=== PATIENT | female | born 1955 | race Caucasian/White ===

== ENCOUNTER 2023-03-01 08:26 | Observation (INO) ==
--- NOTE | 2023-01-28 10:11 | PAT Medication Instructions ---
Medication Instructions Date of Service January 28, 2023 Home Medications Advair Diskus 1 puff inhalation UD PRN sob albuterol sulfate 90 mcg/actuation aerosol inhaler 1 inh inhalation QID PRN sob atenolol 50 mg tablet 50 mg PO QAM bupropion HCl 150 mg 24 hr tablet, extended release 150 mg PO QAM cetirizine 10 mg tablet (Zyrtec) 10 mg PO QAM hydroxychloroquine 200 mg tablet (Plaquenil) 200 mg PO BID leflunomide 10 mg tablet 10 mg PO QAM losartan 50 mg tablet 50 mg PO BID omega-3 fatty acids 3,000 mg PO QAM omeprazole 20 mg tablet,delayed release 20 mg PO QAM ASK your prescriber and surgeon hydroxychloroquine 200 mg tablet (Plaquenil) 200 mg PO BID leflunomide 10 mg tablet 10 mg PO QAM STOP taking 2 weeks before surgery (or as soon as possible if surgery is within 2 weeks) omega-3 fatty acids 3,000 mg PO QAM DO NOT take the morning of surgery cetirizine 10 mg tablet (Zyrtec) 10 mg PO QAM losartan 50 mg tablet 50 mg PO BID Take morning of surgery With a small sip of water, OTHERWISE NOTHING TO EAT OR DRINK AFTER MIDNIGHT: Advair Diskus 1 puff inhalation UD PRN sob (if needed) albuterol sulfate 90 mcg/actuation aerosol inhaler 1 inh inhalation QID PRN sob (use if needed; please bring rescue inhaler with you to hospital day of surgery if possible) atenolol 50 mg tablet 50 mg PO QAM bupropion HCl 150 mg 24 hr tablet, extended release 150 mg PO QAM omeprazole 20 mg tablet,delayed release 20 mg PO QAM Take evening before surgery Advair Diskus 1 puff inhalation UD PRN sob (if needed) albuterol sulfate 90 mcg/actuation aerosol inhaler 1 inh inhalation QID PRN sob (if needed) losartan 50 mg tablet 50 mg PO BID Other Notes If you have any questions please call us at [phone] or [phone] or [phone] or [phone]
--- NOTE | 2023-02-02 11:20 | Anesthesiology Consultation ---
Date of Service February 02, 2023 Assessment & Plan (1) Encounter for pre-operative examination: Plan - PCP (Dr. Naveed Hanks) pre-operative evaluation 02/12/23. - Outpatient joint assessment: Patient is currently scheduled for outpatient pathway. Patient is not recommended candidate for outpatient joint program from anesthesia standpoint given patient's comfort and request on remaining overnight. She plans to contact surgeon's office to change booking to overnight. Chart Review Chart Review: Pending: Refer to Additional Notes / Consult section and Patient seen in Pre Admission Testing Teaching & Discussion Pre-Anesthesia Teaching/Discussion Notes: Instructed NPO after midnight before surgery, except medications with 15 cc of water. Medication instructions provided according to the PAT guidelines. History Surgery Operation Date: 03/01/23 09:10 Proposed Procedures p OP: Left Total Hip Replacement - Vinicio Teixeira MD Height/Weight Height: 5 ft 7 in Weight: 110 kg Allergies Allergy/AdvReac Type Severity Reaction Status Date / Time codeine AdvReac Unknown NAUSEA AND Verified 01/28/23 09:03 VOMITING metformin AdvReac Unknown "BURNING Verified 01/28/23 09:03 IN MY ESOPHAGUS" propoxyphene AdvReac Unknown NAUSEA AND Verified 01/28/23 09:03 VOMITING Sulfa (Sulfonamide AdvReac Unknown NAUSEA AND Verified 01/28/23 09:03 Antibiotics) VOMITING acetaminophen AdvReac NAUSEA AND Verified 01/28/23 09:03 VOMITING hydromorphone [From Dilaudid] AdvReac Vomiting Verified 01/28/23 09:03 Medications Home Medications Medication Instructions Recorded Confirmed Last Taken Advair Diskus 1 puff inhalation UD PRN sob 01/28/23 01/28/23 Unknown albuterol sulfate 90 mcg/actuation 1 inh inhalation QID PRN sob 01/28/23 01/28/23 Unknown aerosol inhaler atenolol 50 mg tablet 50 mg PO QAM 01/28/23 01/28/23 Unknown bupropion HCl 150 mg 24 hr tablet, 150 mg PO QAM 01/28/23 01/28/23 Unknown extended release cetirizine 10 mg tablet (Zyrtec) 10 mg PO QAM 01/28/23 01/28/23 Unknown hydroxychloroquine 200 mg tablet 200 mg PO BID 01/28/23 01/28/23 Unknown (Plaquenil) leflunomide 10 mg tablet 10 mg PO QAM 01/28/23 01/28/23 Unknown losartan 50 mg tablet 50 mg PO BID 01/28/23 01/28/23 Unknown omega-3 fatty acids 3,000 mg PO QAM 01/28/23 01/28/23 Unknown omeprazole 20 mg tablet,delayed 20 mg PO QAM 01/28/23 01/28/23 Unknown release celecoxib 50 mg capsule (Celebrex) 50 mg PO BID 02/02/23 02/02/23 Unknown meloxicam 15 mg tablet 15 mg PO DAILY 02/02/23 02/02/23 Unknown Additional Notes: Patient was instructed and it was written on provided medication instructions to check with surgeon's office regarding meloxicam and celebrex. She verbalized understanding and agreement, denied questions, concerns or additional medications. Past Medical History Medical History PONV (postoperative nausea and vomiting) denies needing scop patch Adrenal benign tumor hx, s/p right adrenalectomy History of colon polyps GERD (gastroesophageal reflux disease) controlled, stable per pt Anxiety and depression Lupus controlled, stable per pt Borderline hyperlipidemia HTN (hypertension) controlled, stable per pt Sleep apnea CPAP-compliant Asthma rare use of inh-last rescue inhaler use several months ago Patient denies h/o stroke, seizures, heart attack, heart failure, DM, blood clots/DVTs or blood transfusions. Exercise / Class Metabolic Activity III < 4 Walking/Shop/Light housework (denies chest discomfort or shortness of breath with usual activities, not doing steps due to hip dysfunction) Past Surgical History Surgical History History of total adrenalectomy right; notes post-op HTN felt to be related to adrenal adjustment History of colonoscopy Past Anesthesia History No Hx of Anesthesia Complications and No Family Hx of Anesthesia Complications History of PONV History of PONV (denies needing scop patch) and Hx of Motion Sickness Social History Smoking Status: Never smoker Do You Dip or Chew Tobacco: No Hx Alcohol Use: No Hx Substance Use: No substance use type: does not use Review of Systems Patient denies chest pain, shortness of breath, dyspnea on exertion, fever, chills, cough, wheezing, or palpitations. Physical Exam Vital Signs Vitals BP 127/83 P 64 TEMP 97.9 SP02 98% on RA RESP 18 Physical Patient resting comfortably in chair in no acute distress, alert and oriented, responding appropriately throughout visit Full cervical extension range of motion without pain TMD < 3 finger breadths Mallampati Score 2 Dentition: one crown; denies chipped or loose teeth, caps, implants or bridges Lungs: normal respiratory effort. Good air movement, clear throughout to auscultation, no adventitious breath sounds Cardiac: regular rate and rhythm, no murmurs noted Carotid arteries: negative bruit bilat Lab Results Anesthesia Preop Results Results Anesthesia Widget: WBC 5.52 K/ul (4.8-10.8) 02/02/23 Hgb 13.0 g/dl (12.0-16.0) 02/02/23 Hct 37.9 % (37.0-47.0) 02/02/23 Plt 282 K/uL (130-400) 02/02/23 Na 135 mmol/L (136-145) L 02/02/23 K 4.7 mmol/L (3.5-5.1) 02/02/23 Cl 102 mmol/L (98-107) 02/02/23 CO2 24 mmol/L (21-32) 02/02/23 BUN 20 mg/dl (6-23) 02/02/23 Creat 1.27 mg/dl (0.6-1.2) H 02/02/23 Glucose Level 80 mg/dl (70-99(Fasting)) 02/02/23 PT 10.8 Seconds (9.0-12.0) 02/02/23 PTT 31 Seconds (21-31) 02/02/23 INR 1.0 (0.9-1.1) 02/02/23 Urine Color Yellow 02/02/23 Urine Appearance Clear (Clear) 02/02/23 Urine pH 5.5 (4.5-7.5) 02/02/23 Urine Specific [place] 1.015 (1.000-1.030) 02/02/23 Urine Protein Negative (Negative) 02/02/23 Urine Glucose (UA) Negative (Negative) 02/02/23 Urine Ketones Negative (Negative) 02/02/23 Urine Blood Negative (Negative) 02/02/23 Urine Nitrite Negative (Negative) 02/02/23 Urine Bilirubin Negative (Negative) 02/02/23 Urine Urobilinogen Negative (Negative) 02/02/23 Urine Leukocyte Esterase 1+ (Negative) H 02/02/23 Urine WBC (Auto) 1-5 /hpf (0-5) 02/02/23 Urine RBC (Auto) 0-4 /hpf (0-4) 02/02/23 Urine Hyaline Casts (Auto) 0 /lpf (0-5) 02/02/23 Urine Epithelial Cells (Auto) >30 /lpf (0-5) H 02/02/23 Urine Bacteria (Auto) Negative (Negative) 02/02/23 Blood Type O Positive 02/02/23 Antibody Screen NEGATIVE 02/02/23 Testing Electrocardiogram Date: 02/02/23 Sinus rhythm with 1st degree AV block, rate 62 bpm 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
--- NOTE | 2023-02-25 16:13 | History & Physical Report ---
Date of Service February 25, 2023 Assessment & Plan (1) Degenerative joint disease of left hip: Plan: Left total hip replacement direct anterior approach most likely overnight stay and then discharge with home health arranged (2) BMI 38.0-38.9,adult: History of Present Illness Chief Complaint: Left hip pain Primary Care Provider: Naveed Kaba Myles Patient is an obese 67-year-old female with greater than 2-year history of left hip and groin pain. The pain is associated with decreased range of motion w eakness and get giving away. She cannot tie her shoe and sock. She requires a cane for all ambulatory activity. She has failed intra-articular injections as well as gel patches both topical NSAID and lidocaine. She has radiographic evidence of advanced arthritis of the hip and is admitted for elective hip replacement. Allergies Allergy/AdvReac Type Severity Reaction Status Date / Time codeine AdvReac Unknown NAUSEA AND Verified 01/28/23 09:03 VOMITING metformin AdvReac Unknown "BURNING Verified 01/28/23 09:03 IN MY ESOPHAGUS" propoxyphene AdvReac Unknown NAUSEA AND Verified 01/28/23 09:03 VOMITING Sulfa (Sulfonamide AdvReac Unknown NAUSEA AND Verified 01/28/23 09:03 Antibiotics) VOMITING acetaminophen AdvReac NAUSEA AND Verified 01/28/23 09:03 VOMITING hydromorphone [From Dilaudid] AdvReac Vomiting Verified 01/28/23 09:03 Home Medications Medication Instructions Recorded Confirmed Type Advair Diskus 1 puff inhalation UD PRN sob 01/28/23 01/28/23 History albuterol sulfate 90 mcg/actuation 1 inh inhalation QID PRN sob 01/28/23 01/28/23 History aerosol inhaler atenolol 50 mg tablet 50 mg PO QAM 01/28/23 01/28/23 History bupropion HCl 150 mg 24 hr tablet, 150 mg PO QAM 01/28/23 01/28/23 History extended release cetirizine 10 mg tablet (Zyrtec) 10 mg PO QAM 01/28/23 01/28/23 History hydroxychloroquine 200 mg tablet 200 mg PO BID 01/28/23 01/28/23 History (Plaquenil) leflunomide 10 mg tablet 10 mg PO QAM 01/28/23 01/28/23 History losartan 50 mg tablet 50 mg PO BID 01/28/23 01/28/23 History omega-3 fatty acids 3,000 mg PO QAM 01/28/23 01/28/23 History omeprazole 20 mg tablet,delayed 20 mg PO QAM 01/28/23 01/28/23 History release celecoxib 50 mg capsule (Celebrex) 50 mg PO BID 02/02/23 02/02/23 History meloxicam 15 mg tablet 15 mg PO DAILY 02/02/23 02/02/23 History Past Med/Surg History Medical History PONV (postoperative nausea and vomiting) denies needing scop patch Adrenal benign tumor hx, s/p right adrenalectomy History of colon polyps GERD (gastroesophageal reflux disease) controlled, stable per pt Anxiety and depression Lupus controlled, stable per pt Borderline hyperlipidemia HTN (hypertension) controlled, stable per pt Sleep apnea CPAP-compliant Asthma rare use of inh-last rescue inhaler use several months ago Surgical History History of total adrenalectomy right; notes post-op HTN felt to be related to adrenal adjustment History of colonoscopy Social History Smoking Status: Never smoker Second Hand Exposure: No; Do You Dip or Chew Tobacco: No; Hx Alcohol Use: No Hx Substance Use: No Preferred Language: Mongolian Communication Ability: Effective Room Service Waiter/Waitress Required: No Beliefs That Will Affect Care: None Current Living Situation: Spouse Feels Safe at Home: Yes Assistive Devices: Cane and Glasses Review of Systems Review of Systems: Left hip and groin pain Physical Exam Physical Exam: Weight 109 kg BMI 39 General obese female who appears older than her stated age. HEENT NCAT EOMI PERRLA Neck: Negative bruits Heart: Regular rate and rhythm grade 1/6 soft systolic ejection murmur. Lungs: Breath sounds clear and equal in all velásquez Abdomen: Obese soft nontender bowel sounds are positive Extremities: Left hip is 4 mm shorter than the right. Passive range of motion is 5 to 90 degrees flexion -10 degrees internal rotation all which reproduces groin pain. Neurological and vascular: Intact Results & Data Results & Data Vital Signs (Past 12 Hours) Blood pressure 136/84 Pulse 76
[~2023-03-01 08:26] MED LIST: ACETAMINOPHEN 500 MG TAB PO SCH; ATENOLOL 50 MG TABLET PO SCH; CeleBREX 200 MG CAP PO SCH; FAMOTIDINE 20 MG TAB PO SCH; GABAPENTIN 300 MG CAP PO SCH; LR 500ML BOLUS, THEN 15ML/HR IV SCH; LR 60ML/HR IV SCH; METOCLOPRAMIDE HCL 10 MG TABLET PO SCH; ROPIVACAINE 0.5% 5 MG/ML 30 ML VIAL ONE; ROPIVACAINE 0.5% HCL/PF 150 MG, BUPIVACAINE 0.75% MPF 20 ML, EPINEPHrine 30MG/30ML (OR ... INFIL SCH; TRANEXAMIC ACID 1,000 MG **IV Intra-op IV SCH; TRANEXAMIC ACID 1,000 MG **IV Pre-op IV SCH; ceFAZolin 2000MG 2,000 MG/15 ML SYR IV SCH; dexAMETHasone 4 MG TAB PO SCH
--- OUTSIDE RECORDS SUMMARY | 2023-03-01 09:22 | External Medical Summary | Continuity of Care Document ---
Author Name Unknown Organization Family Practice [facility] Address [address] [place] [address] Phone [phone] Care Team Providers Care Project Manager Entertainment [employer] Media Name Role Phone Tomer Maldonado M.D. Care Team Information Receive r [phone] Melissa Hull MD Care Team Information Acupuncturist [phone] [facility] Care Team Information Acupuncturist [phone] Problems Active Problems Provider Date Asthma No Church PA-C Onset: 01/03 Benign hypertension No Church PA-C Onset: 1 03/05/1983 Gastroesophageal reflux disease Girish Pepper Onset: 01/04/1972 Calcaneal spur of left foot No Church PA-C Onset: 07/04/2012 Sensorineural hearing loss, bilateral No alvarado PA-C Onset: 01/05/2021 Chronic constipation oN Church PA-C Onset: 01/05/2021 Allergic rhinitis No Church PA-C Onset: Polycystic ovary syndrome No Church PA-C On set: 01/05/2005 Hiatal hernia No Church PA-C Onset: 03/06 Hyperlipidemia No Church PA-C Onset: 09/11 Adrenal mass No Church PA-C Onset: 01/05 Note: surgically removed Colonoscopy No Church PA-C Onset: 10/05 Note: Dr Mae Recurrent depression No Church PA-C Onset: 01/06/2021 Osteoarthritis of bilateral hip joints Onset: Note: Document: 12/03/21 - R heumatology Consult Systemic lupus erythematosus Ons et: Chronic kidney disease stage 3B Girish Pepper Onset: 02/09/2022 Morbid obesity No Church PA-C Onset: 02/09 Hypertensive renal disease No Church PA-C O nset: 02/09/2022 COVID-19 No Church PA-C Onset: 02/24 Social History Type Date Description Comments Sex Unknown Tobacco Use Start: Unknown Never Smoked Cigarettes Tobacco Use Start: Unknown Never Smoked Cigars Tobacco Use Start: Unknown Never Smoked A Pipe Smoking Status Reviewed: 10/09/22 Never Smoked A Pipe Smokeless Tobacco Never Used Smokeless To bacco ETOH Use Never used alcohol Recreational Drug Use Never Used Drugs Seat Belt/Car Seat always uses seat belt Guns in Home No Allergies and adverse reactions Active Allergies Criticality Reaction | Severity Comments Date Codeine Unable to assess criticality vomitin g 01/03/2021 Dilaudid Unable to assess criticality vomitin g 01/03/2021 Darvon Unable to assess criticality 01/03/2021 Bactrim Unable to assess criticality GI upse t 01/03/2021 Metformin Unable to assess criticality GI upse t 01/05/2021 Omnicef Unable to assess criticality diarrhe a 01/05/2021 Medications Active Medications SIG Qnty Indications Order ing Provider Date Ahlgpvjddk58dq Tablets (On Hold Due To Leg Pain) take 1 tablet by mouth everyday at bedtime 30Tablet Naveed Bueno MD 10/12/2022 Co Q 89990ef Capsules 1 by mouth daily with statin 30rene Bueno MD 10/12/2022 Meloxicam7.5mg Tablets take one to two tablets by mouth every day 180tabs Naveed Bueno MD 06/29/2022 Zyrtec Tqcvzzg61gg Tablets 1 by mouth every day generic ok 90tabs Naveed Bueno MD 05/09/[address] 1 by mouth daily 1/2 hour before eating or drinking 90caps Naveed Bueno MD 03/26/2021 Bupropion Hydrochloride ER (XL)150mg Tablets ER 24HR 1 tab by mouth daily in the morning 90tabs Naveed Bueno MD 01/06/2021 Losartan Mdscvgjbo94ba Tablets 1 by mouth every 12 hour 180tabs Naveed Bueno MD Kwizryuw62mt Tablets 1 by mouth daily 90tabs Naveed Bueno MD Advair Njfbrk099-32lfs/Dose Aerosol 1 as needed 60units Unknown Albuterol Sulfate UUS631(90Base) mcg/Act Aerosol 2 puffs by mouth every 4-6 hours as needed wheezing 6.700gm Naveed Bueno MD Hydroxychloroquine Covkwbg429lr Tablets 1 po bid with food Unknown Glucosamine Chondroitin 1500 Kjxntvp7820Eas Capsules 2 by mouth every day as Needed Unknown Ivmwbkwnqk964ru Capsules take 3 capsules by mouth daily Unknown Brblxejor35zo Tablets 1 Tab PO as Needed For Dizziness Unknown [place]-3 PJ5823xd Capsules 3 by mouth every day (3000 MG) Unknown Zexxmffxygw60ju Tablets 1 Tab PO Daily U nknown Immunizations CPT Code Status Date Vaccine Lot # [id number] Given 11/30/2022 Influenza Vac, Split, Preservative Free High Dose Age 65 & > [id number] Given 10/12/2022 Moderna Sars-Co v-2 (Covid-19) Vaccine, BiValent Booster [id number] 06409 Given 12/24/2021 Influenza Virus Vaccine, Recombinant Dna, Hemagglutnin Protein On [id number] 72597 Given 10/10/2021 Moderna Covid-1 9 Vaccine 50mcg Booster-EMR Doc Only [id number] 05140 Given 08/11/2021 Pneumococcal Conjugate-Pr evnar 20 [id number] 99855 Given 01/24/2021 Moderna Covid-1 9 Vaccine 50mcg Booster-EMR Doc Only [id number] 37638 Given 01/03/2021 Influenza Virus Vaccine, Recombinant Dna, Hemagglutnin Protein On [id number] 87484 Given 04/18/2020 Moderna Sars-Co v-2 (Cov-19) vacc,100 mcg/ 0.5 mL 12Y+EMR Doc Only [id number] Given 03/14/2020 Moderna Sars-Co v-2 (Cov-19) vacc,100 mcg/ 0.5 mL 12Y+EMR Doc Only [id number] Refused 10/10/2021 Shingrix Vital Signs Date Vital Result Comment 11/30/2022 9:02am Body Temperature 96.9 F 10/19/2022 9:16am BP Systolic 130 mmHg BP Diastolic 64 mmHg Body Temperature 97.5 F Heart Rate 84 /min Respiratory Rate 18 /min Results Test Acquired Date Facility Test Result H/L Range [place] Comprehensive Metabolic Panel 02/05/2023 [place] [address] [phone] [facility] Sodium 134 mmol/L Low 135-146 1 [facility] Potassium 4.7 mmol/L 3.5-5.1 [facility] Chloride 99 mmol/L 98-107 [facility] Co2 24 mmol/L 22-32 [facility] Anion Gap 16 mmol/L 10-20 [facility] BUN 22 mg/dL High 6-20 [facility] Creatinine 1.3 mg/dL High 0.5-0.9 [facility] Estimated Glomerular Filtration Rate 45 [facility] BUN/Creatinine Ratio 16.9 12.0-20 .0 [facility] Glucose 80 mg/dL 70-120 [facility] Calcium 9.1 mg/dL 8.4-10.2 [facility] Ast/Sgot 15 U/L 10-35 [facility] Alkaline Phosphatase 105 U/L 48-153 [facility] Alt/SGPT 15 U/L 10-35 [facility] Bilirubin, Total 0.40 mg/dL 0.00-1.20 [facility] Protein, Total 7.1 g/dL 6.0-8.3 [facility] Albumin 4.5 g/dL 3.8-5.0 [facility] Globulin 2.6 g/dL 1.8-3.8 [facility] Albumin/Globulin Ratio 1.7 1.0-2 .4 Laboratory test [facility] [address] [phone] Erythrocyte Sedimentation Rate (Esr) 18 mm/hr <30 2 Routine Urinalysis [facility] [address] [phone] [facility] Color, Urine Colorless <See Note> 3 [facility] Clarity, Urine Clear <See Note> 4 [facility] Glucose, Urine Negative mg/dL Negative, Trace [facility] Bilirubin, Urine Negative mg/dL Negativ e [facility] Ketones, Urine Negative mg/dL Negative, Trace [facility] Specific [place], Urine 1.007 1.00 3-1.030 [facility] Blood, Urine Negative Negative [facility] PH, Urine 5.5 >4.6-<7.8 [facility] Protein, Urinalysis Negative mg/dL Nega tive [facility] Urobilinogen, Urine <2.0 mg/dL 0.2, <2. 0 [facility] Nitrite, Urine Negative Negative [facility] Esterase, Urine Small Abnormal Negative [facility] Bacteria, Urine None /HPF None [facility] Epithelium, Squamous Few /HPF None, F ew [facility] Erythrocytes, Urine (Num) 0 /HPF 0- 2 [facility] Leukocytes, Urine (Num) 6 /HPF High 0-5 [facility] Epithelium, Transitional Few /HPF Abnormal Non e Protein Creatinine Ratio 02/05/2023 [place], [place] [id number] [phone] [facility] Protein, Urine <4 mg/dL 0-14 [facility] Creatinine, Urine 34.5 mg/dL 28.0-217.0 [facility] Protein:Creatinine Ratio <0.116 g/g/day 0.000-0.150 5 Differential, Automated 02/05/2023 [place], [place] [id number] [phone] [facility] Neutrophil % - Auto 62.5 % 37.0-63.0 [facility] Lymphocyte % - Auto 20.1 % Low 33.0-37. 0 [facility] Monocyte % - Auto 10.3 % High 0.0-9.0 [facility] Eosinophil % - Auto 5.9 % 0.0-7.0 [facility] Basophils % - Auto 1.2 % High 0.0-1.0 [facility] Neutrophil # - Auto 3.0 K/uL 1.5-6.6 [facility] Lymphocyte # - Auto 1.0 K/uL Low 1.5-3.5 [facility] Monocyte # - Auto 0.5 K/uL 0.0-1.0 [facility] Eosinophil # - Auto 0.3 K/uL 0.0-0.7 [facility] Basophils # - Auto 0.1 K/uL 0.0-0.1 [facility] NRBC% Automated Differential 0.1 % High <0.01 CBC 02/05/2023 [place] [address] [phone] [facility] White Blood Cell Count 4.8 K/uL 4.0-10.5 [facility] Red Blood Cell Count 3.98 Low 4.20-5. 40 Hemoglobin 12.7 g/dL 12.5-16 HCT 37.3 % 37-47 [facility] Mean Corpuscular Volume 93.7 fl 78.0 -100.0 [facility] MCH 31.8 pg High 27.0-31.0 [facility] MCHC 33.9 g/dL 32.5-36.0 [facility] Red Cell Dist Width 12.7 % 11.5-14. 0 [facility] Platelet Count 257 K/uL 150-450 [facility] MPV 8.3 fL 6.5-9.5 Laboratory test finding 02/05/2023 [place] [address] [phone] Complement C3 176 mg/dL High 82-167 6 Complement C4 33 mg/dL 12-38 7 Jacquelin Profile Comprehensive 02/05/2023 [place] [address] [phone] [facility] Anti-Dna DS AB 7 IU/mL 0-9 8 [facility] QUALITY IMPROVEMENT CONSULTANT Abs 0.2 AI 0.0-0.9 [facility] Rivas Abs <0.2 AI 0.0-0.9 [facility] SCL-70 Abs <0.2 AI 0.0-0.9 [facility] Sjogrens Ssa AB <0.2 AI 0.0-0.9 [facility] Sjogrens SSB AB <0.2 AI 0.0-0.9 [facility] Antichromatin Abs <0.2 AI 0.0-0.9 [facility] Anti-Ritika-1 <0.2 AI 0.0-0.9 [facility] Centromere B Abs <0.2 AI 0.0-0.9 [facility] Jacquelin Note Comment 9 Laboratory test finding 02/05/2023 [place] [address] [phone] Jacquelin W/Reflex ([facility] Only) Negative Negative 10 Laboratory test finding 02/05/2023 [place] [address] [phone] Hepatitis C Antibody Non-Reactiv e Non-Reactiv e 11 Hepatitis B Surface Antigen Non-Reactive Non-Re active 12 Hepatitis B Surface Antibody <3.5 mlU/mL Low >=12.0 13 CK 48 U/L 26-192 14 Laboratory test finding 12/09/2022 [place] [address] [phone] Erythrocyte Sedimentation Rate (Esr) 21 mm/hr <30 15, 16 Laboratory test finding 12/09/2022 [place] [address] [phone] Jacquelin W/Reflex ([facility] Only) Negative Negative 17 Double Stranded Dna (Dsdna) Antibody, Quant 7 IU/mL 0-9 18 Jacquelin Profile Comprehensive 12/09/2022 [place] [address] [phone] [facility] Anti-Dna DS AB 7 IU/mL 0-9 19 [facility] QUALITY IMPROVEMENT CONSULTANT Abs 0.2 AI 0.0-0.9 E[facility] Rivas Abs <0.2 AI 0.0-0.9 Ech SCL-70 Abs <0.2 AI 0.0-0.9 Ech Sjogrens Ssa AB <0.2 AI 0.0-0.9 Ech Sjogrens SSB AB <0.2 AI 0.0-0.9 Ech Antichromatin Abs <0.2 AI 0.0-0.9 Ech Anti-Ritika-1 <0.2 AI 0.0-0.9 Ech Centromere B Abs <0.2 AI 0.0-0.9 [facility] Jacquelin Note Comment 20 Routine Urinalysis 12/09/2022 [place] [address] [phone] [facility] Color, Urine Light-Yellow <See Note> 21 [facility] Clarity, Urine Clear <See Note> 22 [facility] Glucose, Urine Negative mg/dL Negative, Trace [facility] Bilirubin, Urine Negative mg/dL Negativ e [facility] Ketones, Urine Negative mg/dL Negative, Trace [facility] Specific [place], Urine 1.017 1.00 3-1.030 [facility] Blood, Urine Negative Negative [facility] PH, Urine 5.5 >4.6-<7.8 [facility] Protein, Urinalysis Negative mg/dL Nega tive [facility] Urobilinogen, Urine <2.0 mg/dL 0.2, <2. 0 [facility] Nitrite, Urine Negative Negative [facility] Esterase, Urine Trace Abnormal Negative [facility] Bacteria, Urine Few /HPF Abnormal None [facility] Epithelium, Squamous Few /HPF None, F ew [facility] Erythrocytes, Urine (Num) <1 /HPF 0- 2 [facility] Leukocytes, Urine (Num) 3 /HPF 0-5 [facility] Casts, Hyaline (Num) 1 /LPF 0-2 [facility] Mucous Trace /HPF Abnormal Absent Comprehensive Metabolic Panel 12/09/2022 [place] [address] [phone] [facility] Sodium 138 mmol/L 135-146 [facility] Potassium 4.7 mmol/L 3.5-5.1 [facility] Chloride 101 mmol/L 98-107 [facility] Co2 25 mmol/L 22-32 [facility] Anion Gap 17 mmol/L 10-20 [facility] BUN 24 mg/dL High 6-20 [facility] Creatinine 1.4 mg/dL High 0.5-0.9 [facility] Estimated Glomerular Filtration Rate 41 [facility] BUN/Creatinine Ratio 17.1 12.0-20 .0 [facility] Glucose 88 mg/dL 70-120 [facility] Calcium 9.0 mg/dL 8.4-10.2 [facility] Ast/Sgot 14 U/L 10-35 [facility] Alkaline Phosphatase 104 U/L 48-153 [facility] Alt/SGPT 19 U/L 10-35 [facility] Bilirubin, Total 0.40 mg/dL 0.00-1.20 [facility] Protein, Total 7.0 g/dL 6.0-8.3 [facility] Albumin 4.5 g/dL 3.8-5.0 [facility] Globulin 2.5 g/dL 1.8-3.8 [facility] Albumin/Globulin Ratio 1.8 1.0-2 .4 Differential, Automated 12/09/2022 [place] [address] [phone] [facility] Neutrophil % - Auto 65.4 % High 37.0-63.0 [facility] Lymphocyte % - Auto 20.1 % Low 33.0-37. 0 [facility] Monocyte % - Auto 7.8 % 0.0-9.0 [facility] Eosinophil % - Auto 5.6 % 0.0-7.0 [facility] Basophils % - Auto 1.1 % High 0.0-1.0 [facility] Neutrophil # - Auto 4.1 K/uL 1.5-6.6 [facility] Lymphocyte # - Auto 1.3 K/uL Low 1.5-3.5 [facility] Monocyte # - Auto 0.5 K/uL 0.0-1.0 [facility] Eosinophil # - Auto 0.4 K/uL 0.0-0.7 [facility] Basophils # - Auto 0.1 K/uL 0.0-0.1 [facility] NRBC% Automated Differential 0.2 % High <0.01 CBC 12/09/2022 [place] [address] [phone] [facility] White Blood Cell Count 6.3 K/uL 4.0-10.5 [facility] Red Blood Cell Count 4.00 Low 4.20-5. 40 Hemoglobin 12.6 g/dL 12.5-16 HCT 37.7 % 37-47 [facility] Mean Corpuscular Volume 94.4 fl 78.0 -100.0 [facility] MCH 31.5 pg High 27.0-31.0 [facility] MCHC 33.3 g/dL 32.5-36.0 [facility] Red Cell Dist Width 13.3 % 11.5-14. 0 [facility] Platelet Count 287 K/uL 150-450 [facility] MPV 7.9 fL 6.5-9.5 Laboratory test finding 11/30/2022 [facility] [place] [address] [phone] Cortisol, Total 17.8 g /dL Normal 23 Dhea Sulfate 164 g /dL High 9-118 24 Clinical PDF Report [id number] SEE IMAGE Laboratory test finding 11/30/2022 [facility] [place] [address] [phone] Aldosterone, LC/MS/MS 3 ng/dL see note 25 Clinical PDF Report [id number] SEE IMAGE General Health Panel 10/05/2022 [facility] [address] [place] [address] [phone] TSH 3.89 uIU/mL 0.50-6.00 Comp. Met 10/05/2022 [facility] [address] [place] [address] [phone] Glucose 83 mg/dL 70-110 BUN 19 mg/dL 6-25 Creatinine 1.3 mg/dL High 0.5-1.2 Sodium 140 mEq/L 135-145 Potassium 4.7 mEq/L 3.5-5.0 Chloride 103 mEq/L 95-107 Co-2 26 mEq/L 24-31 Alk Phos 80 IU/L 43-122 Alt(SGPT) 15 IU/L 10-40 Ast(Sgot) 12 IU/L 3-42 T.Bilirubin 0.6 mg/dL 0.1-1.3 Calcium 9.4 mg/dL 8.5-10.6 Tot.Protein 7.0 g/dL 5.8-8.0 Albumin 5.0 g/dL 3.0-5.2 Globulin 2.0 g/dL 2.0-3.4 GFR 44 ML/MIN/1.73SQM Low >60 CBC W/Diff 10/05/2022 [facility] [address] [place], [place] [address] [phone] WBC 5.6 10^3/M3 3.1-9.2 RBC 3.92 10^6/M3 3.70-5.50 HGB 12.8 GR/DL 11.5-16.1 HCT 37.6 % 34.5-47.8 MCV 96.0 CUMICR High 82.6-95.8 MCH 32.7 PICOGR 27.9-32.9 MCHC 34.0 % 32.6-35.4 RDW 13.3 % 11.4-14.6 PLT 277 10^3/M3 140-350 MPV 8.1 CUMICR 7.0-10.6 %Neut 70.8 % 40.0-75.0 %Lymph 17.4 % 17.0-45.0 %Rolette 6.8 % 1.0-11.0 %Eos 3.7 % 0.0-6.0 %Baso 1.3 % 0.0-2.0 #Neut 4.0 10^3/M3 1.5-8.0 #Lymph 1.0 10^3/M3 0.8-3.2 #Rolette 0.4 10^3/M3 0.0-0.8 #Eos 0.2 10^3/m3 0.0-0.4 #Baso 0.1 10^3/m3 0.0-0.2 Lipid 10/05/2022 [facility] [address] [place], [place] [id number] [phone] Cholesterol 225 mg/dL High 0-200 26 Triglyceride 254 mg/dL High 0-150 27 HDLD 49 mg/dL See Comment 28 Measured LDL 143 mg/dL High 0-130 29 Calc VLDL 50.8 mg/dL See Comment 30 Chol/HDL 4.6 RATIO See Comment 31 Non-HDL 176 mg/dL See Comment 32 Laboratory test finding 10/05/2022 [facility] [address] [place] [address] [phone] Vitd-25Oh 24 ng/mL Low 30-100 1 M32.9 2 Document delivery by [employer] on behalf of [facility] 3 Colorless, Straw, Ye llow, Light-Yellow, Dark-Yellow 4 Clear, Cloudy, Sligh tly Cloudy, Other 5 Reference Range Normal <0.150 ggday High 0.150 - 0.500 ggday Very High > 0.500 ggday Nephrotic >3.000 ggday 6 Performed at: - L [address] [id number] Dish Room Worker: Carmen Murray MD, Phone: [phone] Document delivery by [employer] on behalf of [facility] 7 Performed at: - L [employer] [address] [id number] Dish Room Worker: Carmen Murray MD, Phone: [phone] Document delivery by [employer] on behalf of [facility] 8 Negative <5 Equivocal 5 - 9 Positive >9 9 Autoantibody Disease Association Condition Frequency --------- Antinuclear Antibody, SLE, mixed connective Direct (JACQUELIN-D) tissue diseases --------- dsDNA SLE 40 - 60% --------- Chromatin Drug induced SLE 90% SLE 48 - 97% --------- SSA (Ro) SLE 25 - 35% Sjogren's Syndrome 40 - 70% Lupus 100% --------- SSB (La) SLE 10% Sjogren's Syndrome 30% --------- Sm (anti-Rivas) SLE 15 - 30% --------- QUALITY IMPROVEMENT CONSULTANT Mixed Connective Tissue Disease 95% (U1 nRNP, SLE 30 - 50% anti-ribonucleoprotein) Polymyositis andor Dermatomyositis 20% --------- Scl-70 (antiDNA Scleroderma (diffuse) 20 - 35% topoisomerase) Crest 13% --------- Ritika-1 Polymyositis andor Dermatomyositis 20 - 40% --------- Centromere B Scleroderma - Crest variant 80% 10 Performed at: 01 - L [employer] [address] [id number] Dish Room Worker: Carmen Murray MD, Phone: [phone] Document delivery by [employer] on behalf of [facility] 11 Document delivery by [employer] on behalf of [facility] 12 Document delivery by [employer] on behalf of [facility] 13 Interpretation of Re sults: >12.0 mIUml Consistent with immunity. <5.0 mIUml Not Immune >5.0 - <12.0 mIUml Indeterminate = Unable to determine if Hepatitis B Surface Antibody is present at levels consistent with immunity. Patient's immune status should be further assessed by considering other clinical information. Document delivery by [employer] on behalf of [facility] 14 Document delivery by [employer] on behalf of [facility] 15 R76.8 16 Document delivery by [employer] on behalf of [facility] 17 Performed at: 01 - L [employer] [address] [id number] Dish Room Worker: Carmen Murray MD, Phone: [phone] Document delivery by [employer] on behalf of [facility] 18 Negative <5 Equivocal 5 - 9 Positive >9 19 Performed at: 01 - L [employer] [address] [id number] Dish Room Worker: Carmen Murray MD, Phone: [phone] Document delivery by [employer] on behalf of [facility] 20 Mecca Burger brenna Association Homogeneous Systemic Lupus Erythematosus, Drug Induced Systemic Lupus Erythematosus, Chronic Autoimmune hepatitis, Juvenile Idiopathic Arthritis Speckled Sjogren Syndrome, Systemic Lupus Erythematosus, Subacute Cutaneous Lupus, Lupus, Congenital Heart Block, Mixed Connective Tissue Disease, Scleroderma-diffuse, Scleroderma-Autoimmune Myositis Overlap Syndrome, Systemic Lupus Onjrxcokbrweg-Xqzplrwfqxc-Mwrmclkksl Myositis Overlap Syndrome, Systemic Autoimmune Rheumatic Disease, Undifferentiated Connective Tissue Disease Nucleolar Systemic Sclerosis, Scleroderma-Autoimmune Myositis Overlap Syndrome, Sjogren Syndrome, Raynaud phenomenon, Pulmonary Arterial Hypertension, Systemic Autoimmune Rheumatic Disease, Cancer Centromere Scleroderma-CREST, Limited Cutaneous SSc, Raynaud's Phenomenon, Primary Biliary Cholangitis Nuclear Dot Primary Biliary Cholangitis Nuclear Primary Biliary Cholangitis, Autoimmune Membrane HepatitisLiver disease, Systemic Autoimmune Rheumatic Disease, Autoimmune Cytopenias, Linear Scleroderma, Antiphospholipid Syndrome 21 Colorless, Straw, Ye llow, Light-Yellow, Dark-Yellow 22 Clear, Cloudy, Sligh tly Cloudy, Other 23 Reference Range: For 8 a.m.(7-9 a.m.) Specimen: 4.0-22.0 Reference Range: For 4 p.m.(3-5 p.m.) Specimen: 3.0-17.0 * Please interpret above results accordingly * 24 DHEA-S values fall w ith advancing age. For reference, the reference intervals for 31-40 year old patients are: Male: 93-415 mcg/dL Female: 19-237 mcg/dL 25 Unable to flag abnor mal result(s), please refer to reference range(s) below: Adult Reference Ranges for Aldosterone, LC/MS/MS: Upright 8:00 - 10:00 am < or = 28 ng/dL Upright 4:00 - 6:00 pm < or = 21 ng/dL Supine 8:00 - 10:00 am 3 - 16 ng/dL This test was developed and its analytical performance characteristics have been determined by [employer] [place], [place]. It has not been cleared or approved by the U.S. Food and Drug Administration. This assay has been validated pursuant to the CLIA regulations and is used for clinical purposes. 26 CHOLESTEROL Less than 200mg/dl Low risk 201-239 mg/dl Borderline risk Equal to or greater 240mg/dl High risk 27 TRIGLYCERIDES Less than 150mg/dl Normal 150-199mg/dl Borderline 200-499mg/dl High Greater than 500mg/dl Very High 28 HDL <40mg/dl Elevated Risk 41-59mg/dl Risk >=60mg/dl Least Risk 29 LDL <100mg/dl Optimal 100-129mg/dl Near Optimal 130-159mg/dl Borderline High 160-189mg/dl High >=190 Very High 30 VLDL Less than 30mg/dl Normal 31 CHOL/HDL <4.0 Optimal 4.0-5.0 Borderline >6.0 High Risk 32 NON-HDL 30mg/dl higher than LDL Target Procedures Date Code Description Status 11/30/2022 G0008 Influenza Admin Completed 11/30/2022 93845 Venipuncture Routine Complet ed 10/19/2022 3078F PVRP Diastolic BP <80 mmHg C ompleted 10/19/2022 3075F PVRP Systolic BP 130 To 139 MMHG Completed 10/12/2022 3080F PVRP Diastolic BP >/= 90 MMH G Completed 10/12/2022 3077F PVRP Systolic BP >/= 140 MMH G Completed 10/12/2022 1101F PT SCR Future Fall Risk, No Fall Or 1 W/Out Injury Completed 10/12/2022 0134A Adm Moderna Sars cov2 50mcg/0.5ML BiVal Booster 18 Yrs And Older Completed 10/05/2022 11415 Venipuncture Routine Complet ed 07/08/2022 [id number] Colonoscopy Completed 03/20/2022 [id number] Mammogram Completed Medical Devices Description No Information Available Encounters Type Date Location Provider Dx Diagnosis Office Visit 10/19/2022 9:15a Latonya Church PA-C I10 Essential (p rimary) hypertension Office Visit 10/12/2022 9:00a Latonya Church PA-C M32.9 Systemic lup us erythematosus, unspecified Z00.01 Encounter for genera l adult medical exam w abnormal findings E78.5 Hyperlipidemia, unsp ecified I10 Essential (primary) hypertension N18.32 Chronic kidney disea se, stage 3b E55.9 Vitamin D deficiency , unspecified J45.22 Mild intermittent as thma with status asthmaticus E66.01 Morbid (severe) obes ity due to excess calories I12.9 Hypertensive chronic kidney disease w stg 1-4/unsp chr kdny G47.33 Obstructive sleep ap katya (adult) (pediatric) F33.41 Major depressive dis order, recurrent, in partial remission Z23 Encounter for immuni zation K21.9 Gastro-esophageal re flux disease without esophagitis Assessments Date Code Description Provider 11/30/2022 Z23 Encounter for immunization S usan Church, PA-C 11/30/2022 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 No Church PA-C 10/19/2022 I10 Essential (primary) hyperten susannah No Church PA-C 10/12/2022 M32.9 Systemic lupus erythematosus , unspecified No Church PA-C 10/12/2022 Z00.01 Encounter for neral adult medical examination with abnormal findings No Church PA-C 10/12/2022 E78.5 Hyperlipidemia, unspecified No Church PA-C 10/12/2022 I10 Essential (primary) hyperten susannah No Church PA-C 10/12/2022 N18.32 Chronic kidney disease, stag e 3b No Church PA-C 10/12/2022 E55.9 Vitamin D deficiency, unspec ified No Church PA-C 10/12/2022 J45.22 Mild intermitten t asthma with status asthmaticus No Church PA-C 10/12/2022 E66.01 Morbid (severe) obesity due to excess calories No Chruch PA-C 10/12/2022 I12.9 Hypertensive chr onic kidney disease with stage 1 through stage 4 chronic kidney disease, or unspecified chronic kidney disease No Church PA-C 10/12/2022 G47.33 Obstructive sleep apnea (georgina lt) (pediatric) No Church PA-C 10/12/2022 F33.41 Major depressive disorder, recurrent, in partial remission No Church PA-C 10/12/2022 Z23 Encounter for immunization S shayne Church PA-C 10/12/2022 K21.9 Gastro-esophagea l reflux disease without esophagitis No Church PA-C 10/05/2022 E78.5 Hyperlipidemia, unspecified Naveed Bueno MD 10/05/2022 E78.5 Hyperlipidemia, unspecified Lab - [place] 10/05/2022 I10 Essential (primary) hyperten susannah Naveed Bueno MD 10/05/2022 I10 Essential (primary) hyperten [place]annah Lab - [place] 10/05/2022 N18.32 Chronic kidney disease, stag e 3b Naveed Bueno MD 10/05/2022 N18.32 Chronic kidney disease, stag e 3b Lab [facility] 10/05/2022 E55.9 Vitamin D deficiency, unspec ified Naveed Bueno MD 10/05/2022 E55.9 Vitamin D deficiency, unspec ified [facility] Plan of Treatment Future Appointment(s):* 02/12/2023 8:30 am - Naveed Bueno MD at [place] Functional Status Description No Information Available Mental Status Description No Information Available Referrals Description No Information Available"
--- OUTSIDE RECORDS SUMMARY | 2023-03-01 09:22 | External Medical Summary | Continuity of Care Document ---
Author Name Unknown Organization [facility], [facility] Address [address] [place] [address] Phone [phone] Care Team Providers Care Drug Purchaser Name Role Phone Tomer Maldonado M.D. Care Team Information Receive r [phone] Melissa Hull MD Care Team Information Supervisor Kennel [phone] [facility] Care Team Information Supervisor Kennel [phone] Problems Active Problems Provider Date Asthma No Church PA-C Onset: 01/03 Benign hypertension No Church PA-C Onset: 1 03/05/1983 Gastroesophageal reflux disease Girish Pepper Onset: 01/04/1972 Calcaneal spur of left foot No Church PA-C Onset: 07/04/2012 Sensorineural hearing loss, bilateral No alvarado PA-C Onset: 01/05/2021 Chronic constipation No Church PA-C Onset: 01/05/2021 Allergic rhinitis No [...] SIG Qnty Indications Order ing Provider Date Jcugnidmwn04jy Tablets (On Hold Due To Leg Pain) take 1 tablet by mouth everyday at bedtime 30Tablet Naveed Bueno MD 10/12/2022 Co Q 21423ph Capsules 1 by mouth daily with statin 30rene Bueno MD 10/12/2022 Meloxicam7.5mg Tablets take one to two tablets by mouth every day 180tabs Naveed Bueno MD 06/29/2022 Zyrtec Ezlfghr94qc Tablets 1 by mouth every day generic ok 90tabs Naveed Bueno MD 05/09/[address] 1 by mouth daily 1/2 hour before eating or drinking 90caps Naveed Bueno MD 03/26/2021 Bupropion Hydrochloride ER (XL)150mg Tablets ER 24HR 1 tab by mouth daily in the morning 90tabs Naveed Bueno MD 01/06/2021 Losartan Dvdhbjcmq61ir Tablets 1 by mouth every 12 hour 180tabs Naveed Bueno MD Tcclkzje08qr Tablets 1 by mouth daily 90tabs Naveed Bueno MD Advair Mgfmih820-33dof/Dose Aerosol 1 as needed 60units Unknown Albuterol Sulfate CVW317(90Base) mcg/Act Aerosol 2 puffs by mouth every 4-6 hours as needed wheezing 6.700gm Naveed Bueno MD Hydroxychloroquine Ztftlir744uo Tablets 1 po bid with food Unknown Glucosamine Chondroitin 1500 Hgzxvpw2583Uve Capsules 2 by mouth every day as Needed Unknown Apdhqpvysj126yg Capsules take 3 capsules by mouth daily Unknown Bemybpthk82ul Tablets 1 Tab PO as Needed For Dizziness Unknown Cossayuna-3 GA3063ub Capsules 3 by mouth every day (3000 MG) Unknown Mbipujoudel68md Tablets 1 Tab PO Daily U nknown Immunizations CPT Code Status Date Vaccine Lot # [id number] Given 11/30/2022 Influenza Vac, Split, Preservative Free High Dose Age 65 & > [id number] Given 10/12/2022 Moderna Sars-Co v-2 (Covid-19) Vaccine, BiValent Booster 12y+ [id number] 93844 Given 12/24/2021 Influenza Virus Vaccine, Recombinant Dna, Hemagglutnin Protein On [id number] 85610 Given 10/10/2021 Moderna Covid-1 9 Vaccine 50mcg Booster-EMR Doc Only [id number] 16014 Given 08/11/2021 Pneumococcal Conjugate-Pr evnar 20 [id number] 70175 Given 01/24/2021 Moderna Covid-1 9 Vaccine 50mcg Booster-EMR Doc Only [id number] 44511 Given 01/03/2021 Influenza Virus Vaccine, Recombinant Dna, Hemagglutnin Protein On [id number] 62373 Given 04/18/2020 Moderna Sars-Co v-2 (Cov-19) vacc,100 mcg/ 0.5 mL 12Y+EMR Doc Only 97081 Given 03/14/2020 Moderna Sars-Co v-2 (Cov-19) vacc,100 mcg/ 0.5 mL 12Y+EMR Doc Only [id number] Refused 10/10/2021 Shingrix Vital Signs Date Vital Result Comment 11/30/2022 9:02am Body Temperature 96.9 F 10/19/2022 9:16am BP Systolic 130 mmHg BP Diastolic 64 mmHg Body Temperature 97.5 F Heart Rate 84 /min Respiratory Rate 18 /min Results Test Acquired Date Facility Test Result H/L Range N ote Comprehensive Metabolic Panel 02/05/2023 [place] [address] [phone] [facility] Sodium 134 mmol/L Low 135-146 1 [facility] Potassium 4.7 mmol/L 3.5-5.1 [facility] Chloride 99 mmol/L 98-107 [facility] Co2 24 mmol/L 22-32 [facility] Anion Gap 16 mmol/L 10-20 [facility] BUN 22 mg/dL High 6-20 [facility] Creatinine 1.3 mg/dL High 0.5-0.9 [facility] Estimated Glomerular Filtration Rate 45 [facility] BUN/Creatinine Ratio 16.9 12.0-20 .0 [facility] Glucose 80 mg/dL 70-120 [facility] Calcium 9.1 mg/dL 8.4-10.2 [facility] Ast/Sgot 15 U/L 10-35 [facility] Alkaline Phosphatase 105 U/L 48-153 [facility] Alt/SGPT 15 U/L 10-35 [facility] Bilirubin, Total 0.40 mg/dL 0.00-1.20 [facility] Protein, Total 7.1 g/dL 6.0-8.3 [facility] Albumin 4.5 g/dL 3.8-5.0 [facility] Globulin 2.6 g/dL 1.8-3.8 [facility] Albumin/Globulin Ratio 1.7 1.0-2 .4 [facility] test [facility] [address] [phone] Erythrocyte Sedimentation Rate (Esr) 18 mm/hr <30 2 Routine Urinalysis [facility] [address] [phone] [facility] Color, Urine Colorless <See Note> 3 [facility] Clarity, Urine Clear <See Note> 4 [facility] Glucose, Urine Negative mg/dL Negative, Trace [facility] Bilirubin, Urine Negative mg/dL Negativ e [facility] Ketones, Urine Negative mg/dL Negative, Trace [facility] Specific [place], Urine 1.007 1.00 3-1.030 [facility] Blood, Urine Negative Negative [facility] PH, Urine 5.5 >4.6-<7.8 [facility] Protein, Urinalysis Negative mg/dL Nega tive [facility] Urobilinogen, Urine <2.0 mg/dL 0.2, <2. 0 [facility] Nitrite, Urine Negative Negative [facility] Esterase, Urine Small Abnormal Negative [facility] Bacteria, Urine None /HPF None [facility] Epithelium, Squamous Few /HPF None, F ew [facility] Erythrocytes, Urine (Num) 0 /HPF 0- 2 [facility] Leukocytes, Urine (Num) 6 /HPF High 0-5 [facility] Epithelium, Transitional Few /HPF Abnormal Non e Protein Creatinine Ratio 02/05/2023 [place], [place] [id number] [phone] [facility] Protein, Urine <4 mg/dL 0-14 [facility] Creatinine, Urine 34.5 mg/dL 28.0-217.0 [facility] Protein:Creatinine Ratio <0.116 g/g/day 0.000-0.150 5 Differential, Automated 02/05/2023 [place], [place] [id number] [phone] [facility] Neutrophil % - Auto 62.5 % 37.0-63.0 [facility] Lymphocyte % - Auto 20.1 % Low 33.0-37. 0 [facility] Monocyte % - Auto 10.3 % High 0.0-9.0 [facility] Eosinophil % - Auto 5.9 % 0.0-7.0 [facility] Basophils % - Auto 1.2 % High 0.0-1.0 [facility] Neutrophil # - Auto 3.0 K/uL 1.5-6.6 [facility] Lymphocyte # - Auto 1.0 K/uL Low 1.5-3.5 [facility] Monocyte # - Auto 0.5 K/uL 0.0-1.0 [facility] Eosinophil # - Auto 0.3 K/uL 0.0-0.7 [facility] Basophils # - Auto 0.1 K/uL 0.0-0.1 [facility] NRBC% Automated Differential 0.1 % High <0.01 CBC 02/05/2023 [place] [address] [phone] [facility] White Blood Cell Count 4.8 K/uL 4.0-10.5 [facility] Red Blood Cell Count 3.98 Low 4.20-5. 40 Hemoglobin 12.7 g/dL 12.5-16 HCT 37.3 % 37-47 [facility] Mean Corpuscular Volume 93.7 fl 78.0 -100.0 [facility] MCH 31.8 pg High 27.0-31.0 [facility] MCHC 33.9 g/dL 32.5-36.0 [facility] Red Cell Dist Width 12.7 % 11.5-14. 0 [facility] Platelet Count 257 K/uL 150-450 [facility] MPV 8.3 fL 6.5-9.5 Laboratory test finding 02/05/2023 [place] [address] [phone] Complement C3 176 mg/dL High 82-167 6 Complement C4 33 mg/dL 12-38 7 Jacquelin Profile Comprehensive 02/05/2023 [place] [address] [phone] [facility] Anti-Dna DS AB 7 IU/mL 0-9 8 Ech FRIT COATER Abs 0.2 AI 0.0-0.9 Ech Rivas Abs <0.2 AI 0.0-0.9 [facility] SCL-70 Abs <0.2 AI 0.0-0.9 [facility] Sjogrens Ssa AB <0.2 AI 0.0-0.9 [facility] Sjogrens SSB AB <0.2 AI 0.0-0.9 [facility] Antichromatin Abs <0.2 AI 0.0-0.9 [facility] Anti-Ritika-1 <0.2 AI 0.0-0.9 [facility] Centromere B Abs <0.2 AI 0.0-0.9 [facility] Jacquelin Note Comment 9 Laboratory test finding 02/05/2023 [place] [address] [phone] Jacquelin W/Reflex ([facility] Only) Negative Negative 10 TB Quantiferon Gold, Incubated 02/05/2023 [place] [address] [phone] [facility] QFT Criteria Comment 11 [facility] QFT TB1 Ag Value 0.06 IU/mL [facility] TB2 Ag Value 0.03 IU/mL [facility] QFT Nil Value 0.01 IU/mL [facility] QFT Mitogen Value >10.00 IU/mL [facility] QFT-TB Gold Plus CLT Inc Negative Negativ e 12 Laboratory test finding 02/05/2023 [place] [address] [phone] Hepatitis C Antibody Non-Reactive Non-Reactive 13 Hepatitis B Surface Antigen Non-Reactive Non-Re active 14 Hepatitis B Surface Antibody <3.5 mlU/mL Low >=12.0 15 CK 48 U/L 26-192 16 Differential, Automated 12/09/2022 [place] [address] [phone] [facility] Neutrophil % - Auto 65.4 % High 37.0-63.0 17 [facility] Lymphocyte % - Auto 20.1 % Low 33.0-37. 0 [facility] Monocyte % - Auto 7.8 % 0.0-9.0 [facility] Eosinophil % - Auto 5.6 % 0.0-7.0 [facility] Basophils % - Auto 1.1 % High 0.0-1.0 [facility] Neutrophil # - Auto 4.1 K/uL 1.5-6.6 [facility] Lymphocyte # - Auto 1.3 K/uL Low 1.5-3.5 [facility] Monocyte # - Auto 0.5 K/uL 0.0-1.0 [facility] Eosinophil # - Auto 0.4 K/uL 0.0-0.7 [facility] Basophils # - Auto 0.1 K/uL 0.0-0.1 [facility] NRBC% Automated Differential 0.2 % High <0.01 Laboratory test finding 12/09/2022 [place] [address] [phone] Jacquelin W/Reflex ([facility] Only) Negative Negative 18 Double Stranded Dna (Dsdna) Antibody, Quant 7 IU/mL 0-9 19 Jacquelin Profile Comprehensive 12/09/2022 [place] [address] [phone] [facility] Anti-Dna DS AB 7 IU/mL 0-9 20 Ech FRIT COATER Abs 0.2 AI 0.0-0.9 Ech Rivas Abs <0.2 AI 0.0-0.9 Ech SCL-70 Abs <0.2 AI 0.0-0.9 Ech Sjogrens Ssa AB <0.2 AI 0.0-0.9 Ech Sjogrens SSB AB <0.2 AI 0.0-0.9 Ech Antichromatin Abs <0.2 AI 0.0-0.9 Ech Anti-Ritika-1 <0.2 AI 0.0-0.9 Ech Centromere B Abs <0.2 AI 0.0-0.9 [facility] Jacquelin Note Comment 21 Routine Urinalysis 12/09/2022 [place] [address] [phone] [facility] Color, Urine Light-Yellow <See Note> 22 [facility] Clarity, Urine Clear <See Note> 23 [facility] Glucose, Urine Negative mg/dL Negative, Trace [facility] Bilirubin, Urine Negative mg/dL Negativ e [facility] Ketones, Urine Negative mg/dL Negative, Trace [facility] Specific [place], Urine 1.017 1.00 3-1.030 [facility] Blood, Urine Negative Negative [facility] PH, Urine 5.5 >4.6-<7.8 [facility] Protein, Urinalysis Negative mg/dL Nega tive [facility] Urobilinogen, Urine <2.0 mg/dL 0.2, <2. 0 [facility] Nitrite, Urine Negative Negative [facility] Esterase, Urine Trace Abnormal Negative [facility] Bacteria, Urine Few /HPF Abnormal None Ech Lab Epithelium, Squamous Few /HPF None, F ew [facility] Erythrocytes, Urine (Num) <1 /HPF 0- 2 [facility] Leukocytes, Urine (Num) 3 /HPF 0-5 [facility] Casts, Hyaline (Num) 1 /LPF 0-2 [facility] Mucous Trace /HPF Abnormal Absent Comprehensive Metabolic Panel 12/09/2022 [place] [address] [phone] [facility] Sodium 138 mmol/L 135-146 [facility] Potassium 4.7 mmol/L 3.5-5.1 [facility] Chloride 101 mmol/L 98-107 [facility] Co2 25 mmol/L 22-32 [facility] Anion Gap 17 mmol/L 10-20 [facility] BUN 24 mg/dL High 6-20 [facility] Creatinine 1.4 mg/dL High 0.5-0.9 [facility] Estimated Glomerular Filtration Rate 41 [facility] BUN/Creatinine Ratio 17.1 12.0-20 .0 [facility] Glucose 88 mg/dL 70-120 [facility] Calcium 9.0 mg/dL 8.4-10.2 [facility] Ast/Sgot 14 U/L 10-35 [facility] Alkaline Phosphatase 104 U/L 48-153 [facility] Alt/SGPT 19 U/L 10-35 [facility] Bilirubin, Total 0.40 mg/dL 0.00-1.20 [facility] Protein, Total 7.0 g/dL 6.0-8.3 [facility] Albumin 4.5 g/dL 3.8-5.0 [facility] Globulin 2.5 g/dL 1.8-3.8 [facility] Albumin/Globulin Ratio 1.8 1.0-2 .4 Laboratory test finding 12/09/2022 [place] [address] [phone] Erythrocyte Sedimentation Rate (Esr) 21 mm/hr <30 24 CBC 12/09/2022 [place] [address] [phone] [facility] White Blood Cell Count 6.3 K/uL 4.0-10. 5 [facility] Red Blood Cell Count 4.00 Low 4.20-5. 40 Hemoglobin 12.6 g/dL 12.5-16 HCT 37.7 % 37-47 [facility] Mean Corpuscular Volume 94.4 fl 78.0 -100.0 [facility] MCH 31.5 pg High 27.0-31.0 [facility] MCHC 33.3 g/dL 32.5-36.0 [facility] Red Cell Dist Width 13.3 % 11.5-14. 0 [facility] Platelet Count 287 K/uL 150-450 [facility] MPV 7.9 fL 6.5-9.5 Laboratory test finding 11/30/2022 [employer] [address] [place] [address] [place] Pear[place] [address] [phone] Cortisol, Total 17.8 g /dL Normal 25 Dhea Sulfate 164 g /dL High 9-118 26 Clinical PDF Report [id number] SEE IMAGE Laboratory test finding 11/30/[address] [place] [address] [phone] Aldosterone, LC/MS/MS 3 ng/dL see note 27 Clinical PDF Report [id number] SEE IMAGE General Health Panel 10/05/2022 [facility] [address] [place] [address] [phone] TSH 3.89 uIU/mL 0.50-6.00 Comp. Met 10/05/2022 [facility] [address] [place] [address] [phone] Glucose 83 mg/dL 70-110 BUN 19 mg/dL [...] 44 ML/MIN/1.73SQM Low >60 CBC W/Diff 10/05/2022 [facility] [address] [place] [address] [phone] WBC 5.6 10^3/M3 3.1-9.2 RBC 3.92 10^6/M3 3.70-5.50 HGB 12.8 GR/DL 11.5-16.1 HCT 37.6 % 34.5-47.8 MCV 96.0 CUMICR High 82.6-95.8 MCH 32.7 PICOGR 27.9-32.9 MCHC 34.0 % 32.6-35.4 RDW 13.3 % 11.4-14.6 PLT 277 10^3/M3 140-350 MPV 8.1 CUMICR 7.0-10.6 %Neut 70.8 % 40.0-75.0 %Lymph 17.4 % 17.0-45.0 %Garfield 6.8 % 1.0-11.0 %Eos 3.7 % 0.0-6.0 %Baso 1.3 % 0.0-2.0 #Neut 4.0 10^3/M3 1.5-8.0 #Lymph 1.0 10^3/M3 0.8-3.2 #Garfield 0.4 10^3/M3 0.0-0.8 #Eos 0.2 10^3/m3 0.0-0.4 #Baso 0.1 10^3/m3 0.0-0.2 Lipid 10/05/2022 [facility] [address] [place], [place] [id number] [phone] Cholesterol 225 mg/dL High 0-200 28 Triglyceride 254 mg/dL High 0-150 29 HDLD 49 mg/dL See Comment 30 Measured LDL 143 mg/dL High 0-130 31 Calc VLDL 50.8 mg/dL See Comment 32 Chol/HDL 4.6 RATIO See Comment 33 Non-HDL 176 mg/dL See Comment 34 Laboratory test finding 10/05/2022 [facility] [address] [place] [address] [phone] Vitd-25Oh 24 ng/mL Low 30-100 1 M32.9 2 Document delivery by [employer] on behalf of [facility] 3 Colorless, Straw, Ye llow, Light-Yellow, Dark-Yellow 4 Clear, Cloudy, Sligh tly Cloudy, Other 5 Reference Range Normal <0.150 ggday High 0.150 - 0.500 ggday Very High > 0.500 ggday Nephrotic >3.000 ggday 6 Performed at: - L [facility] [address] [id number] [employer]: Carmen Murray MD, Phone: [phone] Document delivery by [employer] on behalf of [facility] 7 Performed at: - L [facility] [id number] [employer]: Carmen Murray MD, Phone: [phone] Document delivery by [employer] on behalf of [facility] 8 Negative <5 Equivocal 5 - [...] Sm (anti-Rivas) SLE 15 - 30% --------- FRIT COATER Mixed Connective Tissue Disease 95% (U1 nRNP, SLE 30 - 50% anti-ribonucleoprotein) Polymyositis andor Dermatomyositis 20% --------- Scl-70 (antiDNA Scleroderma (diffuse) 20 - 35% topoisomerase) Crest 13% --------- Ritika-1 Polymyositis andor Dermatomyositis 20 - 40% --------- Centromere B Scleroderma - Crest variant 80% 10 Performed at: [address] [place] [id number] [employer]: Carmen Murray MD, Phone: [phone] Document delivery by [employer] on behalf of [facility] 11 QuantiFERON-TB Gold Plus is a qualitative indirect test for M tuberculosis infection (including disease) and is intended for use in conjunction with risk assessment, radiography, and other medical and diagnostic evaluations. The QuantiFERON-TB Gold Plus result is determined by subtracting the Nil value from either TB antigen (Ag) value. The Mitogen tube serves as a control for the test. 12 No response to M tub erculosis antigens detected. Infection with M tuberculosis is unlikely, but high risk individuals should be considered for additional testing (ATSIDSDC Clinical Practice Guidelines, 2017). The reference range is an Antigen minus Nil result of <0.35 IUmL. The specimen received for QuantiFERON testing was incubated by the ordering institution. Specific procedures outlined in our Directory of Services and in the package insert for the QuantiFERON Gold (In Tube) test must be followed to enable for proper stimulation of cells for the production of interferon gamma. Chemiluminescence immunoassay methodology 13 Document delivery by [employer] on behalf of [facility] 14 Document delivery by [employer] on behalf of [facility] 15 Interpretation of Re sults: >12.0 mIUml Consistent with immunity. <5.0 mIUml Not Immune >5.0 - <12.0 mIUml Indeterminate = Unable to determine if Hepatitis B Surface Antibody is present at levels consistent with immunity. Patient's immune status should be further assessed by considering other clinical information. Document delivery by [employer] on behalf of [facility] 16 Document delivery by [employer] on behalf of [facility] 17 R76.8 18 Performed at: 01 - L [facility] [address] [id number] [employer]: Carmen Murray MD, Phone: [phone] Document delivery by [employer] on behalf of [facility] 19 Negative <5 Equivocal 5 - 9 Positive >9 20 Performed at: 01 - L [facility] [address] [place] [id number] [employer]: Carmen Murray MD, Phone: [phone] Document delivery by [employer] on behalf of [facility] 21 Pattern Potential [facility] Homogeneous Systemic Lupus Erythematosus, Drug Induced Systemic Lupus Erythematosus, Chronic Autoimmune hepatitis, Juvenile Idiopathic Arthritis Speckled Sjogren Syndrome, Systemic Lupus Erythematosus, Subacute Cutaneous Lupus, Lupus, Congenital Heart Block, Mixed Connective Tissue Disease, Scleroderma-diffuse, Scleroderma-Autoimmune Myositis Overlap Syndrome, Systemic Lupus Jqvyqhfhvwqtv-Ksjgqnhghus-Hejdhphjta Myositis Overlap Syndrome, Systemic Autoimmune Rheumatic Disease, Undifferentiated Connective Tissue Disease Nucleolar Systemic Sclerosis, Scleroderma-Autoimmune Myositis Overlap Syndrome, Sjogren Syndrome, Raynaud phenomenon, Pulmonary Arterial Hypertension, Systemic Autoimmune Rheumatic Disease, Cancer Centromere Scleroderma-CREST, Limited Cutaneous SSc, Raynaud's Phenomenon, Primary Biliary Cholangitis Nuclear Dot Primary Biliary Cholangitis Nuclear Primary Biliary Cholangitis, Autoimmune Membrane HepatitisLiver disease, Systemic Autoimmune Rheumatic Disease, Autoimmune Cytopenias, Linear Scleroderma, Antiphospholipid Syndrome 22 Colorless, Straw, Ye llow, Light-Yellow, Dark-Yellow 23 Clear, Cloudy, Sligh tly Cloudy, Other 24 Document delivery by [employer] on behalf of [facility] 25 Reference Range: For 8 a.m.(7-9 a.m.) Specimen: 4.0-22.0 Reference Range: For 4 p.m.(3-5 p.m.) Specimen: 3.0-17.0 * Please interpret above results accordingly * 26 DHEA-S values fall w ith advancing age. For reference, the reference intervals for 31-40 year old patients are: Male: 93-415 mcg/dL Female: 19-237 mcg/dL 27 Unable to flag abnor mal result(s), please refer to reference range(s) below: Adult Reference Ranges for Aldosterone, LC/MS/MS: Upright 8:00 - 10:00 am < or = 28 ng/dL Upright 4:00 - 6:00 pm < or = 21 ng/dL Supine 8:00 - 10:00 am 3 - 16 ng/dL This test was developed and its analytical performance characteristics have been determined [facility] [place] It has not been cleared or approved by the U.S. Food and Drug Administration. This assay has been validated pursuant to the CLIA regulations and is used for clinical purposes. 28 CHOLESTEROL Less than 200mg/dl Low risk 201-239 mg/dl Borderline risk Equal to or greater 240mg/dl High risk 29 TRIGLYCERIDES Less than 150mg/dl Normal 150-199mg/dl Borderline 200-499mg/dl High Greater than 500mg/dl Very High 30 HDL <40mg/dl Elevated Risk 41-59mg/dl Risk >=60mg/dl Least Risk 31 LDL <100mg/dl Optimal 100-129mg/dl Near Optimal 130-159mg/dl Borderline High 160-189mg/dl High >=190 Very High 32 VLDL Less than 30mg/dl Normal 33 CHOL/HDL <4.0 Optimal 4.0-5.0 Borderline >6.0 High Risk 34 NON-HDL 30mg/dl higher than LDL Target Procedures Date Code Description Status 11/30/2022 G0008 Influenza Admin Completed 11/30/2022 22501 Venipuncture Routine Complet ed 10/19/2022 3078F PVRP [...] Booster 18 Yrs And Older Completed 10/05/2022 80913 Venipuncture Routine Complet ed 07/08/2022 [id number] Colonoscopy Completed 03/20/2022 [id number] Mammogram Completed Medical Devices Description No Information [...] Provider 11/30/2022 Z23 Encounter for immunization S shayne Church PA-C 11/30/2022 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 No Church PA-C 10/19/2022 I10 Essential (primary) hyperten susannah No Church PA-C 10/12/2022 M32.9 Systemic lupus erythematosus , unspecified No Church PA-C 10/12/2022 Z00.01 Encounter for ge neral adult medical examination with abnormal findings No Church PA-C 10/12/2022 E78.5 Hyperlipidemia, unspecified No Church PA-C 10/12/2022 I10 Essential (primary) hyperten susannah Church PA-C 10/12/2022 N18.32 Chronic kidney disease, stag e 3b No Church PA-C 10/12/2022 E55.9 Vitamin D deficiency, unspec ified No Church PA-C 10/12/2022 J45.22 Mild intermitten t asthma with status asthmaticus No Church PA-C 10/12/2022 E66.01 Morbid (severe) obesity due to excess calories No Church PA-C 10/12/2022 I12.9 Hypertensive chr onic kidney [...] MD 10/05/2022 E78.5 Hyperlipidemia, unspecified Lab - [place] 10/05/2022 I10 Essential (primary) hyperten susannah Naveed Bueno MD 10/05/2022 I10 Essential (primary) hyperten susannah [facility] 10/05/2022 N18.32 Chronic kidney disease, stag e 3b Naveed Bueno MD 10/05/2022 N18.32 [facility] kidney disease, [facility] e 3b [facility] 10[facility] E55.9 Vitamin D deficiency, unspec ified Naveed Bueno MD 10/05/2022 E55.9 Vitamin D deficiency, unspec ified [facility] Plan of Treatment Future Appointment(s):* 02/12/2023 8:30 am - Naveed Bueno MD at [place] Functional Status Description No Information Available Mental Status Description No Information Available Referrals Description No Information Available"
--- OUTSIDE RECORDS SUMMARY | 2023-03-01 09:22 | External Medical Summary | Continuity of Care Document ---
Author Name Unknown Organization [facility] Address [address] [place] [address] Phone [phone] Care Team Providers Care Crosscutter Name Role Phone Tomer Maldonado M.D. Care Team Information Receive r [phone] Melissa Hull MD Care Team Information Head Of Research & Insights [phone] [facility] Services Care Team Information Head Of Research & Insights [phone] Problems Active Problems Provider Date Asthma No [...] Never Smoked A Pipe Smoking Status Reviewed: 02/12/23 Never Smoked A Pipe Smokeless Tobacco Never [...] SIG Qnty Indications Order ing Provider Date Co Q 27061og Capsules 1 by mouth daily with statin 30lillians Naveed Bueno MD 10/12/2022 Zyrtec Srhfgtt16sc Tablets 1 by mouth every day in am generic ok 90tabs Naveed Bueno MD 05/09/[address] 1 by mouth daily 1/2 hour before eating breakfast or drinking 90lillians Naveed Bueno MD 03/26/2021 Bupropion Hydrochloride ER (XL)150mg Tablets ER 24HR 1 tab by mouth daily in the morning 90tabs Naveed Bueno MD 01/06/2021 Losartan Imrocdwuc68dl Tablets 1 by mouth every 12 hour 180tabs Naveed Bueno MD Mqcwraje36fu Tablets 1 by mouth daily in am 90tabs Naveed Bueno MD Advair Zzujlk563-06nau/Dose Aerosol 1 as needed 60units Unknown Albuterol Sulfate WGX484(90Base) mcg/Act Aerosol 2 puffs by mouth every 4-6 hours as needed wheezing 6.700gm Naveed Bueno MD Hydroxychloroquine Fwjonpc193oe Tablets 1 po bid with food Unknown Glucosamine Chondroitin 1500 Onytyvj4331Aho Capsules 2 by mouth every day as Needed Unknown Hzalvixili646bn Capsules take capsule po qd to bid Unknown Cnwcbuejm70pv Tablets 1 Tab PO as Needed For Dizziness Unknown Corinna-3 UO5554bu Capsules 3 by mouth israel (3000 MG) Unknown Rnrhqomiafl18aw Tablets 1 Tab PO Daily In Am Unknown Fogtctrbu931fh Capsules 1 bid Unknow n History Medications Ocqgiyvncn08gt Tablets (On Hold Due To Leg Pain) take 1 tablet by mouth everyday at bedtime 30Tablet Naveed Bueno MD 10/12/2022 - 11/22/2022 Immunizations CPT Code Status Date Vaccine Lot # [id number] Given 11/30/2022 Influenza Vac, Split, Preservative Free High Dose Age 65 & > [id number] Given 10/12/2022 Moderna Sars-Co v-2 (Covid-19) Vaccine, BiValent Booster 12y+ [id number] 64182 Given 12/24/2021 Influenza Virus Vaccine, Recombinant Dna, Hemagglutnin Protein On [id number] 28607 Given 10/10/2021 Moderna Covid-1 9 Vaccine 50mcg Booster-EMR Doc Only [id number] 81028 Given 08/11/2021 Pneumococcal Conjugate-Pr evnar 20 [id number] 37475 Given 01/24/2021 Moderna Covid-1 9 Vaccine 50mcg Booster-EMR Doc Only [id number] 46174 Given 01/03/2021 Influenza Virus Vaccine, Recombinant Dna, Hemagglutnin Protein On [id number] 73463 Given 04/18/2020 Moderna Sars-Co v-2 (Cov-19) vacc,100 mcg/ 0.5 mL 12Y+EMR Doc Only 50988 Given 03/14/2020 Moderna Sars-Co v-2 (Cov-19) vacc,100 mcg/ 0.5 mL 12Y+EMR Doc Only [id number] Refused 10/10/2021 Shingrix Vital Signs Date Vital Result Comment 02/12/2023 8:21am BP Systolic 136 mmHg Large Cuff , Left Arm, Sitting BP Diastolic 84 mmHg Large Cuff, Left Arm, Sitting Body Temperature 96.8 F Heart Rate 76 /min Respiratory Rate 16 /min Weight 243.00 lb Weight 110.225 kg Height 66 inches 5'6" w/o shoes 2 023 BMI (Body Mass Index) 39.2 kg/m2 [place]intyre Body Weight 130 lb 11/30/2022 9:02am Body Temperature 96.9 F Results Test Acquired Date Facility Test Result H/L Range N ote Comprehensive Metabolic Panel 02/05/2023 [place], [place] [id number] [phone] [facility] Sodium 134 mmol/L Low 135-146 1 [facility] Potassium 4.7 mmol/L 3.5-5.1 [facility] Chloride 99 mmol/L 98-107 [facility] Co2 24 mmol/L 22-32 [facility] Anion Gap 16 mmol/L 10-20 [facility] BUN 22 mg/dL High 6-20 [facility] Creatinine 1.3 mg/dL High 0.5-0.9 [facility] Estimated Glomerular Filtration Rate 45 [facility] BUN/Creatinine Ratio 16.9 12.0-20 .0 [facility] Glucose 80 mg/dL 70-120 [facility] Calcium 9.1 mg/dL 8.4-10.2 [facility] Ast/Sgot 15 U/L 10-35 [facility] Alkaline Phosphatase 105 U/L 48-153 [facility] Alt/SGPT 15 U/L 10-35 [facility] Bilirubin, Total 0.40 mg/dL 0.00-1.20 [facility] Protein, Total 7.1 g/dL 6.0-8.3 [facility] Albumin 4.5 g/dL 3.8-5.0 [facility] Globulin 2.6 g/dL 1.8-3.8 [facility] Albumin/Globulin Ratio 1.7 1.0-2 .4 Laboratory test finding 02/05/2023 [place], [place] [address] [phone] Erythrocyte Sedimentation Rate (Esr) 18 mm/hr <30 2 Routine Urinalysis 02/05/2023 [place] [address] [phone] [facility] Color, Urine Colorless <See Note> 3 [facility] Clarity, Urine Clear <See Note> 4 [facility] Glucose, Urine Negative mg/dL Negative, Trace [facility] Bilirubin, Urine Negative mg/dL Negativ e [facility] Ketones, Urine Negative mg/dL Negative, Trace [facility] Specific [place], Urine 1.007 1.00 3-1.030 [facility] Blood, Urine Negative Negative [facility] PH, Urine 5.5 >4.6-<7.8 [facility] Protein, Urinalysis Negative mg/dL Nega tive [facility] Urobilinogen, Urine <2.0 mg/dL 0.2, <2. 0 [facility] Nitrite, Urine Negative Negative [facility] Esterase, Urine Small Abnormal Negative [facility] Bacteria, Urine None /HPF None [facility] Epithelium, Squamous Few /HPF None, F ew [facility] Erythrocytes, Urine (Num) 0 /HPF 0- 2 [facility] Leukocytes, Urine (Num) 6 /HPF High 0-5 [facility] Epithelium, Transitional Few /HPF Abnormal Non e Protein Creatinine Ratio 02/05/2023 [place] [address] [phone] [facility] Protein, Urine <4 mg/dL 0-14 [facility] Creatinine, Urine 34.5 mg/dL 28.0-217.0 [facility] Protein:Creatinine Ratio <0.116 g/g/day 0.000-0.150 5 Differential, Automated 02/05/2023 [place] [address] [phone] [facility] Neutrophil % - Auto 62.5 % 37.0-63.0 [facility] Lymphocyte % - Auto 20.1 % Low 33.0-37. 0 [facility] Monocyte % - Auto 10.3 % High 0.0-9.0 [facility] Eosinophil % - Auto 5.9 % 0.0-7.0 [facility] Basophils % - Auto 1.2 % High 0.0-1.0 [facility] Neutrophil # - Auto 3.0 K/uL 1.5-6.6 [facility] Lymphocyte # - Auto 1.0 K/uL Low 1.5-3.5 [facility] Monocyte # - Auto 0.5 K/uL 0.0-1.0 [facility] Eosinophil # - Auto 0.3 K/uL 0.0-0.7 [facility] Basophils # - Auto 0.1 K/uL 0.0-0.1 [facility] NRBC% Automated Differential 0.1 % High <0.01 CBC 02/05/2023 [place] [address] [phone] [facility] White Blood Cell Count 4.8 K/uL 4.0-10.5 [facility] Red Blood Cell Count 3.98 Low 4.20-5. 40 Hemoglobin 12.7 g/dL 12.5-16 HCT 37.3 % 37-47 [facility] Mean Corpuscular Volume 93.7 fl 78.0 -100.0 [facility] MCH 31.8 pg High 27.0-31.0 [facility] MCHC 33.9 g/dL 32.5-36.0 [facility] Red Cell Dist Width 12.7 % 11.5-14. 0 [facility] Platelet Count 257 K/uL 150-450 [facility] MPV 8.3 fL 6.5-9.5 Laboratory test finding 02/05/2023 [place] [address] [phone] Complement C3 176 mg/dL High 82-167 6 Complement C4 33 mg/dL 12-38 7 Jacquelin Profile Comprehensive 02/05/2023 [place] [address] [phone] [facility] Anti-Dna DS AB 7 IU/mL 0-9 8 Ech SOFTWARE DEVELOPMENT PROJECT MANAGER Abs 0.2 AI 0.0-0.9 [facility] Rivas Abs <0.2 AI 0.0-0.9 [facility] SCL-70 Abs <0.2 AI 0.0-0.9 [facility] Sjogrens Ssa AB <0.2 AI 0.0-0.9 [facility] Sjogrens SSB AB <0.2 AI 0.0-0.9 [facility] Antichromatin Abs <0.2 AI 0.0-0.9 [facility] Anti-Ritika-1 <0.2 AI 0.0-0.9 [facility] Centromere B Abs <0.2 AI 0.0-0.9 [facility] Jacquelin Note Comment 9 Laboratory test finding 02/05/2023 [place] [address] [phone] Jacquelin W/Reflex (Ech Only) Negative Negative 10 TB Quantiferon Gold, Incubated 02/05/2023 [place] [address] [phone] Ech QFT Criteria Comment 11 Ech QFT TB1 Ag Value 0.06 IU/mL Ech QFT TB2 Ag Value 0.03 IU/mL Ech QFT Nil Value 0.01 IU/mL Ech QFT Mitogen Value >10.00 IU/mL Ech QFT-TB Gold Plus CLT Inc Negative Negativ e 12 Myomarker 3 Profile 02/05/2023 [place] [address] [phone] Ech Anti-Ritika-1 AB (RDL) <20 units <20 Ech Anti-PL-7 AB (RDL) Negative Negative Ech Anti-PL-12 AB (RDL) Negative Negative Ech Anti-Ej AB (RDL) Negative Negative Ech Anti-Oj AB (RDL) Negative Negative Ech Anti-SRP AB (RDL) Negative Negative Ech Anti-PA-2 AB (RDL) Negative Negative Ech Xvdi-Ths-1Oneht AB (RDL) <20 units <20 Ech Anti-Mda-5 AB (Cadm-140)(RDL) <20 units <2 0 Ech Anti-NXP-2 (P140) AB (RDL) <20 units <20 Ech Anti-Sae1 AB, Igg (RDL) <20 units <20 13 Ech Anti-PM/SCL-100 AB (RDL) <20 units <20 Ech Anti-Ku AB (RDL) Negative Negative Ech Anti-SS-A 52KD AB, Igg (RDL) <20 units <20 Ech Anti-U1 SOFTWARE DEVELOPMENT PROJECT MANAGER AB (RDL) <20 units <20 14 Ech Anti-U2 SOFTWARE DEVELOPMENT PROJECT MANAGER AB (RDL) Negative Negative Ech Anti-U3 SOFTWARE DEVELOPMENT PROJECT MANAGER (Fibrillarin)(RDL) Negative N egative 15 Laboratory test finding 02/05/2023 [place] [address] [phone] Hepatitis C Antibody Non-Reactive Non-Reactive 16 Hepatitis B Surface Antigen Non-Reactive Non-Re active 17 Hepatitis B Surface Antibody <3.5 mlU/mL Low >=12.0 18 CK 48 U/L 26-192 19 Differential, Automated 12/09/2022 [place] [address] [phone] [facility] Neutrophil % - Auto 65.4 % High 37.0-63.0 20 [facility] Lymphocyte % - Auto 20.1 % Low 33.0-37. 0 [facility] Monocyte % - Auto 7.8 % 0.0-9.0 [facility] Eosinophil % - Auto 5.6 % 0.0-7.0 [facility] Basophils % - Auto 1.1 % High 0.0-1.0 [facility] Neutrophil # - Auto 4.1 K/uL 1.5-6.6 [facility] Lymphocyte # - Auto 1.3 K/uL Low 1.5-3.5 [facility] Monocyte # - Auto 0.5 K/uL 0.0-1.0 [facility] Eosinophil # - Auto 0.4 K/uL 0.0-0.7 [facility] Basophils # - Auto 0.1 K/uL 0.0-0.1 [facility] NRBC% Automated Differential 0.2 % High <0.01 Laboratory test finding 12/09/2022 [place] [address] [phone] Jacquelin W/Reflex (Ech Only) Negative Negative 21 Double Stranded Dna (Dsdna) Antibody, Quant 7 IU/mL 0-9 22 Jacquelin Profile Comprehensive 12/09/2022 [place] [address] [phone] [facility] Anti-Dna DS AB 7 IU/mL 0-9 23 [facility] SOFTWARE DEVELOPMENT PROJECT MANAGER Abs 0.2 AI 0.0-0.9 [facility] Rivas Abs <0.2 AI 0.0-0.9 [facility] SCL-70 Abs <0.2 AI 0.0-0.9 [facility] Sjogrens Ssa AB <0.2 AI 0.0-0.9 [facility] Sjogrens SSB AB <0.2 AI 0.0-0.9 [facility] Antichromatin Abs <0.2 AI 0.0-0.9 [facility] Anti-Ritika-1 <0.2 AI 0.0-0.9 [facility] Centromere B Abs <0.2 AI 0.0-0.9 [facility] Jacquelin Note Comment 24 Routine Urinalysis 12/09/2022 [place] [address] [phone] [facility] Color, Urine Light-Yellow <See Note> 25 [facility] Clarity, Urine Clear <See Note> 26 [facility] Glucose, Urine Negative mg/dL Negative, Trace [facility] Bilirubin, Urine Negative mg/dL Negativ e [facility] Ketones, Urine Negative mg/dL Negative, Trace [facility] Specific [place], Urine 1.017 1.00 3-1.030 [facility] Blood, Urine Negative Negative [facility] PH, Urine 5.5 >4.6-<7.8 [facility] Protein, Urinalysis Negative mg/dL Nega tive [facility] Urobilinogen, Urine <2.0 mg/dL 0.2, <2. 0 [facility] Nitrite, Urine Negative Negative [facility] Esterase, Urine Trace Abnormal Negative [facility] Bacteria, Urine Few /HPF Abnormal None [facility] Epithelium, Squamous Few /HPF None, F ew [facility] Erythrocytes, Urine (Num) <1 /HPF 0- 2 [facility] Leukocytes, Urine (Num) 3 /HPF 0-5 [facility] Casts, Hyaline (Num) 1 /LPF 0-2 [facility] Mucous Trace /HPF Abnormal Absent Comprehensive Metabolic Panel 12/09/2022 [place] [address] [phone] [facility] Sodium 138 mmol/L 135-146 [facility] Potassium 4.7 mmol/L 3.5-5.1 [facility] Chloride 101 mmol/L 98-107 [facility] Co2 25 mmol/L 22-32 [facility] Anion Gap 17 mmol/L 10-20 [facility] BUN 24 mg/dL High 6-20 [facility] Creatinine 1.4 mg/dL High 0.5-0.9 [facility] Estimated Glomerular Filtration Rate 41 [facility] BUN/Creatinine Ratio 17.1 12.0-20 .0 [facility] Glucose 88 mg/dL 70-120 [facility] Calcium 9.0 mg/dL 8.4-10.2 [facility] Ast/Sgot 14 U/L 10-35 [facility] Alkaline Phosphatase 104 U/L 48-153 [facility] Alt/SGPT 19 U/L 10-35 [facility] Bilirubin, Total 0.40 mg/dL 0.00-1.20 [facility] Protein, Total 7.0 g/dL 6.0-8.3 [facility] Albumin 4.5 g/dL 3.8-5.0 [facility] Globulin 2.5 g/dL 1.8-3.8 [facility] Albumin/Globulin Ratio 1.8 1.0-2 .4 Laboratory test finding 12/09/2022 [place], [place] [address]134 [phone] Erythrocyte Sedimentation Rate (Esr) 21 mm/hr <30 27 CBC 12/09/2022 [place], [place] [address]90 [phone] [facility] White Blood Cell Count 6.3 K/uL 4.0-10. 5 [facility] Red Blood Cell Count 4.00 Low 4.20-5. 40 Hemoglobin 12.6 g/dL 12.5-16 HCT 37.7 % 37-47 [facility] Mean Corpuscular Volume 94.4 fl 78.0 -100.0 [facility] MCH 31.5 pg High 27.0-31.0 [facility] MCHC 33.3 g/dL 32.5-36.0 [facility] Red Cell Dist Width 13.3 % 11.5-14. 0 [facility] Platelet Count 287 K/uL 150-450 [facility] MPV 7.9 fL 6.5-9.5 Laboratory test finding 11/30/[address] [place] [address] [phone] Cortisol, Total 17.8 g /dL Normal 28 Dhea Sulfate 164 g /dL High 9-118 29 Clinical PDF Report [id number] SEE IMAGE Laboratory test finding 11/30/[address] [place] [address] [phone] Aldosterone, LC/MS/MS 3 ng/dL see note 30 Clinical PDF Report [id number] SEE IMAGE General Health Panel 10/05/2022 [facility] 1 [facility] [place] 427[address] [phone] TSH 3.89 uIU/mL 0.50-6.00 Comp. Met 10/05/2022 [facility]. 1 [facility] [place] 6960769 [phone] Glucose 83 mg/dL 70-110 BUN 19 mg/dL [...] 44 ML/MIN/1.73SQM Low >60 CBC W/Diff 10/05/2022 [facility]. 1 [place] [address] [phone] WBC 5.6 10^3/M3 3.1-9.2 RBC 3.92 10^6/M3 3.70-5.50 HGB 12.8 GR/DL 11.5-16.1 HCT 37.6 % 34.5-47.8 MCV 96.0 CUMICR High 82.6-95.8 MCH 32.7 PICOGR 27.9-32.9 MCHC 34.0 % 32.6-35.4 RDW 13.3 % 11.4-14.6 PLT 277 10^3/M3 140-350 MPV 8.1 CUMICR 7.0-10.6 %Neut 70.8 % 40.0-75.0 %Lymph 17.4 % 17.0-45.0 %[place] 6.8 % 1.0-11.0 %Eos 3.7 % 0.0-6.0 %Baso 1.3 % 0.0-2.0 #Neut 4.0 10^3/M3 1.5-8.0 #Lymph 1.0 10^3/M3 0.8-3.2 #[place] 0.4 10^3/M3 0.0-0.8 #Eos 0.2 10^3/m3 0.0-0.4 #Baso 0.1 10^3/m3 0.0-0.2 Lipid 10/05/2022 [facility] 1 [place], [place] [address] [phone] Cholesterol 225 mg/dL High 0-200 31 Triglyceride 254 mg/dL High 0-150 32 HDLD 49 mg/dL See Comment 33 Measured LDL 143 mg/dL High 0-130 34 Calc VLDL 50.8 mg/dL See Comment 35 Chol/HDL 4.6 RATIO See Comment 36 Non-HDL 176 mg/dL See Comment 37 Laboratory test finding 10/05/2022 [facility] 1 [place], [place] [address] [phone] Vitd-25Oh 24 ng/mL Low 30-100 1 M32.9 2 Document delivery by [employer] on behalf of [facility] 3 Colorless, Straw, Ye llow, Light-Yellow, Dark-Yellow 4 Clear, Cloudy, Sligh tly Cloudy, Other 5 Reference Range Normal <0.150 ggday High 0.150 - 0.500 ggday Very High > 0.500 ggday Nephrotic >3.000 ggday 6 Performed at: 01 - L [facility] [address] [id number] Spa Supervisor: Carmen Murray MD, Phone: [phone] Document delivery by [employer] on behalf of [facility] 7 Performed at: 01 - L [facility] [address] [place] [id number] Spa Supervisor: Carmen Murray MD, Phone: [phone] Document delivery by [employer] on behalf of [facility] 8 Negative <5 Equivocal 5 - 9 [...] Sm (anti-Rivas) SLE 15 - 30% --------- SOFTWARE DEVELOPMENT PROJECT MANAGER Mixed Connective Tissue Disease 95% (U1 nRNP, SLE 30 - 50% anti-ribonucleoprotein) Polymyositis andor Dermatomyositis 20% --------- Scl-70 (antiDNA Scleroderma (diffuse) 20 - 35% topoisomerase) Crest 13% --------- Ritika-1 Polymyositis andor Dermatomyositis 20 - 40% --------- Centromere B Scleroderma - Crest variant 80% 10 Performed at: [address] [id number] Spa Supervisor: Carmen Murray MD, Phone: [phone] Document delivery by [employer] on behalf of [facility] 11 QuantiFERON-TB Gold Plus is a qualitative [...] individuals should be considered for additional testing ([facility] Clinical Practice Guidelines, 2017). The reference range [...] of interferon gamma. Chemiluminescence immunoassay methodology 13 Interpretation for A nti-Ritika-1, Hkjz-BGQ-9pktov, Anti-MDA-5, Anti-NXP-2, Anti-SAE1, Qwel-DQQef-250, Anti-SS-A 52 kD, Anti-U1 SOFTWARE DEVELOPMENT PROJECT MANAGER: Negative: <20 Weak Positive: 20 - 39 Moderate Positive: 40 - 80 Strong Positive: >80 14 Interpretation for A nti-Ritika-1, Rrbj-SJA-5heirp, Anti-MDA-5, Anti-NXP-2, Anti-SAE1, Qpbo-JXMwh-587, Anti-SS-A 52 kD, Anti-U1 SOFTWARE DEVELOPMENT PROJECT MANAGER: Negative: <20 Weak Positive: 20 - 39 Moderate Positive: 40 - 80 Strong Positive: >80 15 Interpretation for A nti-Ritika-1, Fzez-XLB-3tvpos, Anti-MDA-5, Anti-NXP-2, Anti-SAE1, Qxxy-OICnf-098, Anti-SS-A 52 kD, Anti-U1 SOFTWARE DEVELOPMENT PROJECT MANAGER: Negative: <20 Weak Positive: 20 - 39 Moderate Positive: 40 - 80 Strong Positive: >80 16 Document delivery by [employer] on behalf of [facility] 17 Document delivery by [employer] on behalf of [facility] 18 Interpretation of Re sults: >12.0 mIUml Consistent with immunity. <5.0 mIUml Not Immune >5.0 - <12.0 mIUml Indeterminate = Unable to determine if Hepatitis B Surface Antibody is present at levels consistent with immunity. Patient's immune status should be further assessed by considering other clinical information. Document delivery by [employer] on behalf of [facility] 19 Document delivery by [employer] on behalf of [facility] 20 R76.8 21 Performed at: - [facility] [address] [id number] Spa Supervisor: Carmen Murray MD, Phone: [phone] Document delivery by [employer] on behalf of [facility] 22 Negative <5 Equivocal 5 - 9 Positive >9 23 Performed at: [employer] [facility] [address] [place] [id number] Spa Supervisor: Carmen Murray MD, Phone: [phone] Document delivery by [employer] on behalf of [facility] 24 Pattern Potential Di [facility] Homogeneous Systemic Lupus Erythematosus, Drug Induced Systemic Lupus Erythematosus, Chronic Autoimmune hepatitis, Juvenile Idiopathic Arthritis Speckled Sjogren Syndrome, Systemic Lupus Erythematosus, Subacute Cutaneous Lupus, Lupus, Congenital Heart Block, Mixed Connective Tissue Disease, Scleroderma-diffuse, Scleroderma-Autoimmune Myositis Overlap Syndrome, Systemic Lupus Yfgolkfaauffs-Ezyaprzjfjq-Rljgqotcbq Myositis Overlap Syndrome, Systemic Autoimmune Rheumatic Disease, Undifferentiated Connective Tissue Disease Nucleolar Systemic Sclerosis, Scleroderma-Autoimmune Myositis Overlap Syndrome, Sjogren Syndrome, Raynaud phenomenon, Pulmonary Arterial Hypertension, Systemic Autoimmune Rheumatic Disease, Cancer Centromere Scleroderma-CREST, Limited Cutaneous SSc, Raynaud's Phenomenon, Primary Biliary Cholangitis Nuclear Dot Primary Biliary Cholangitis Nuclear Primary Biliary Cholangitis, Autoimmune Membrane HepatitisLiver disease, Systemic Autoimmune Rheumatic Disease, Autoimmune Cytopenias, Linear Scleroderma, Antiphospholipid Syndrome 25 Colorless, Straw, Ye llow, Light-Yellow, Dark-Yellow 26 Clear, Cloudy, Sligh tly Cloudy, Other 27 Document delivery by [employer] on behalf of [facility] 28 Reference Range: For 8 a.m.(7-9 a.m.) Specimen: 4.0-22.0 Reference Range: For 4 p.m.(3-5 p.m.) Specimen: 3.0-17.0 * Please interpret above results accordingly * 29 DHEA-S values fall w ith advancing age. For reference, the reference intervals for 31-40 year old patients are: Male: 93-415 mcg/dL Female: 19-237 mcg/dL 30 Unable to flag abnor mal result(s), please refer to reference range(s) below: Adult Reference Ranges for Aldosterone, LC/MS/MS: Upright 8:00 - 10:00 am < or = 28 ng/dL Upright 4:00 - 6:00 pm < or = 21 ng/dL Supine 8:00 - 10:00 am 3 - 16 ng/dL This test was developed and its analytical performance characteristics have been determined by [employer] [place]. It has not been cleared or approved by the U.S. Food and Drug Administration. This assay has been validated pursuant to the CLIA regulations and is used for clinical purposes. 31 CHOLESTEROL Less than 200mg/dl Low risk 201-239 mg/dl Borderline risk Equal to or greater 240mg/dl High risk 32 TRIGLYCERIDES Less than 150mg/dl Normal 150-199mg/dl Borderline 200-499mg/dl High Greater than 500mg/dl Very High 33 HDL <40mg/dl Elevated Risk 41-59mg/dl Risk >=60mg/dl Least Risk 34 LDL <100mg/dl Optimal 100-129mg/dl Near Optimal 130-159mg/dl Borderline High 160-189mg/dl High >=190 Very High 35 VLDL Less than 30mg/dl Normal 36 CHOL/HDL <4.0 Optimal 4.0-5.0 Borderline >6.0 High Risk 37 NON-HDL 30mg/dl higher than LDL Target Procedures Date Code Description Status 02/12/2023 3079F PVRP Diastolic BP 80-89 MMHG Completed 02/12/2023 3075F PVRP Systolic BP 130 To 139 MMHG Completed 11/30/2022 G0008 Influenza Admin Completed 11/30/2022 26486 Venipuncture Routine Complet ed 10/19/2022 3078F PVRP [...] Booster 18 Yrs And Older Completed 10/05/2022 01521 Venipuncture Routine Complet ed 07/08/2022 [id number] Colonoscopy Completed 03/20/2022 [id number] Mammogram Completed Medical Devices Description No Information [...] without esophagitis Assessments Date Code Description Provider 02/12/2023 Z01.818 Encounter for other preproce dural examination Naveed Bueno MD 02/12/2023 M32.9 Systemic lupus erythematosus , unspecified Naveed Bueno MD 02/12/2023 E66.01 Morbid (severe) obesity due to excess calories Naveed Bueno MD 02/12/2023 Z99.89 Dependence on ot her enabling machines and devices Naveed Bueno MD 02/12/2023 M16.12 Unilateral primary osteoarth ritis, left hip Naveed Bueno MD 02/12/2023 M25.552 Pain in left hip Naveed clark MD 02/12/2023 I10 Essential (primary) hyperten susannah Naveed Bueno MD 02/12/2023 E78.5 Hyperlipidemia, unspecified Naveed Bueno MD 02/12/2023 J45.22 Mild intermitten t asthma with status asthmaticus Naveed Bueno MD 02/12/2023 I12.9 Hypertensive chr onic kidney disease with stage 1 through stage 4 chronic kidney disease, or unspecified chronic kidney disease Naveed Bueno MD 02/12/2023 G47.33 Obstructive sleep apnea (georgina lt) (pediatric) Naveed Bueno MD 02/12/2023 K21.9 Gastro-esophagea l reflux disease without esophagitis Naveed Bueno MD 02/12/2023 E55.9 Vitamin D deficiency, unspec ified Naveed Bueno MD 11/30/2022 Z23 Encounter for immunization S shayne Church PA-C 11/30/2022 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 No Church PA-C 10/19/2022 I10 Essential (primary) hyperten susannah No Church PA-C 10/12/2022 M32.9 Systemic lupus erythematosus , unspecified No Church PA-C 10/12/2022 Z00.01 [facility] No [...] Naveed Bueno MD 10/05/2022 E78.5 Hyperlipidemia, unspecified Elizabeth - Latonya 10/05/2022 I10 Essential (primary) hypertmayo Bueno MD 10/05/2022 I10 Essential (primary) hyperten susannah Hanks 10/05/2022 N18.32 Chronic kidney disease, stag e 3b Naveed Bueno MD 10/05/2022 N18.32 Chronic kidney disease, stag e 3b Elizabeth Hanks 10/05/2022 E55.9 Vitamin D deficiency, unspec ified Naveed Bueno MD 10/05/2022 E55.9 Vitamin D deficiency, unspec ified Elizabeth Hanks Plan of Treatment No Information Available Functional Status Description No Information Available Mental Status Description No Information Available Referrals Description No Information Available
--- OUTSIDE RECORDS SUMMARY | 2023-03-01 09:22 | External Medical Summary | Continuity of Care Document ---
Author Name Unknown Organization Family Practice [facility] Address [address] [place] [address] Phone [phone] Care Team Providers Care [place] Inspector Name Role Phone Tomer Maldonado M.D. Care Team Information Receive r [phone] Melissa Hull MD Care Team Information [employer] [phone] [facility] Care Team Information [employer] [phone] Problems Active Problems Provider Date Asthma No [...] Indications Order ing Provider Date Co Q [id number] Capsules 1 by mouth daily with statin 30lillians Naveed Bueno MD 10/12/2022 Zyrtec Afvfrpt06or Tablets 1 by mouth every day in am generic ok 90tabs Naveed Bueno MD 05/09/[address] 1 by mouth daily 1/2 hour before eating breakfast or drinking 90lillians Naveed Bueno MD 03/26/2021 Bupropion Hydrochloride ER (XL)150mg Tablets ER 24HR 1 tab by mouth daily in the morning 90tabs Naveed Bueno MD 01/06/2021 Losartan Eujaccdhe87ub Tablets 1 by mouth every 12 hour 180tabs Naveed Bueno MD Omdxchfo23of Tablets 1 by mouth daily in am 90tabs Naveed Bueno MD Advair Vbitzl465-09zxi/Dose Aerosol 1 as needed 60units Unknown Albuterol Sulfate YTQ125(90Base) mcg/Act Aerosol 2 puffs by mouth every 4-6 hours as needed wheezing 6.700gm Naveed Bueno MD Hydroxychloroquine Qtqhktz395pr Tablets 1 po bid with food Unknown Glucosamine Chondroitin 1500 Selezxh7418Lpa Capsules 2 by mouth every day as Needed Unknown Pdlthiemzq548sy Capsules take capsule po qd to bid Unknown Gdqukpczi21qc Tablets 1 Tab PO as Needed For Dizziness Unknown [place]-3 [id number] Capsules 3 by mouth israel (3000 MG) Unknown Esvqkmvwivx22rf Tablets 1 Tab PO Daily In Am Unknown Zrscqxkjr401rc Capsules 1 bid Unknow n History Medications Vuawttgekb64qu Tablets (On Hold Due To Leg Pain) take 1 tablet by mouth everyday at bedtime 30Tablet Naveed Bueno MD 10/12/2022 - 11/22/2022 Immunizations CPT Code Status Date Vaccine Lot # [id number] Given 11/30/2022 Influenza Vac, Split, Preservative Free High Dose Age 65 & > [id number] 60137 Given 10/12/2022 Moderna Sars-Co v-2 (Covid-19) Vaccine, BiValent Booster 12y+ [id number] 23934 Given 12/24/2021 Influenza Virus Vaccine, Recombinant Dna, Hemagglutnin Protein On [id number] 26934 Given 10/10/2021 Moderna Covid-1 9 Vaccine 50mcg Booster-EMR Doc Only [id number] 75988 Given 08/11/2021 Pneumococcal Conjugate-Pr evnar 20 [id number] 06531 Given 01/24/2021 Moderna Covid-1 9 Vaccine 50mcg Booster-EMR Doc Only [id number] 16215 Given 01/03/2021 Influenza Virus Vaccine, Recombinant Dna, Hemagglutnin Protein On [id number] 52115 Given 04/18/2020 Moderna Sars-Co v-2 (Cov-19) vacc,100 mcg/ 0.5 mL 12Y+EMR Doc Only 80990 Given 03/14/2020 Moderna Sars-Co v-2 (Cov-19) vacc,100 mcg/ 0.5 mL 12Y+EMR Doc Only [id number] Refused 10/10/2021 Shingrix Vital Signs Date Vital Result Comment 02/12/2023 8:21am BP Systolic 136 mmHg Large Cuff , Left Arm, Sitting BP Diastolic 84 mmHg Large Cuff, Left Arm, Sitting Body Temperature 96.8 F Heart Rate 76 /min Respiratory Rate 16 /min Weight 243.00 lb Weight 110.225 kg Height 66 inches 5'6" w/o shoes 2 023 BMI (Body Mass Index) 39.2 kg/m2 [place] Body Weight 130 lb 11/30/2022 9:02am Body Temperature 96.9 F Results Test Acquired Date Facility Test Result H/L Range N ote Comprehensive Metabolic Panel 02/05/2023 [place], [place] [address] [phone] [facility] Sodium 134 mmol/L Low 135-146 1 [facility] Potassium 4.7 mmol/L 3.5-5.1 [facility] Chloride 99 mmol/L 98-107 [facility] Co2 24 mmol/L 22-32 [facility] Anion Gap 16 mmol/L 10-20 [facility] BUN 22 mg/dL High 6-20 [facility] Creatinine 1.3 mg/dL High 0.5-0.9 [facility] Estimated Glomerular Filtration Rate 45 [facility] BUN/Creatinine Ratio 16.9 12.0-20 .0 [facility] Glucose 80 mg/dL 70-120 [facility] Calcium 9.1 mg/dL 8.4-10.2 [facility] Ast/Sgot 15 U/L 10-35 [facility] Alkaline Phosphatase 105 U/L 48-153 [facility] Alt/SGPT 15 U/L 10-35 [facility] Bilirubin, Total 0.40 mg/dL 0.00-1.20 [facility] Protein, Total 7.1 g/dL 6.0-8.3 [facility] Albumin 4.5 g/dL 3.8-5.0 [facility] Globulin 2.6 g/dL 1.8-3.8 [facility] Albumin/Globulin Ratio 1.7 1.0-2 .4 Laboratory test finding 02/05/2023 [place], [place] [address] [phone] Erythrocyte Sedimentation Rate (Esr) 18 mm/hr <30 2 Routine Urinalysis 02/05/2023 [place] [address] [phone] [facility] Color, Urine Colorless <See Note> 3 [facility] Clarity, Urine Clear <See Note> 4 [facility] Glucose, Urine Negative mg/dL Negative, Trace [facility] Bilirubin, Urine Negative mg/dL Negativ e [facility] Ketones, Urine Negative mg/dL Negative, Trace [facility] Specific [place], Urine 1.007 1.00 3-1.030 [facility] Blood, Urine Negative Negative [facility] PH, Urine 5.5 >4.6-<7.8 [facility] Protein, Urinalysis Negative mg/dL Nega tive [facility] Urobilinogen, Urine <2.0 mg/dL 0.2, <2. 0 [facility] Nitrite, Urine Negative Negative [facility] Esterase, Urine Small Abnormal Negative [facility] Bacteria, Urine None /HPF None [facility] Epithelium, Squamous Few /HPF None, F ew [facility] Erythrocytes, Urine (Num) 0 /HPF 0- 2 [facility] Leukocytes, Urine (Num) 6 /HPF High 0-5 [facility] Epithelium, Transitional Few /HPF Abnormal Non e Protein Creatinine Ratio 02/05/2023 [place] [address] [phone] [facility] Protein, Urine <4 mg/dL 0-14 [facility] Creatinine, Urine 34.5 mg/dL 28.0-217.0 [facility] Protein:Creatinine Ratio <0.116 g/g/day 0.000-0.150 5 Differential, Automated 02/05/2023 [place] [address] [phone] [facility] Neutrophil % - Auto 62.5 % 37.0-63.0 [facility] Lymphocyte % - Auto 20.1 % Low 33.0-37. 0 [facility] Monocyte % - Auto 10.3 % High 0.0-9.0 [facility] Eosinophil % - Auto 5.9 % 0.0-7.0 [facility] Basophils % - Auto 1.2 % High 0.0-1.0 [facility] Neutrophil # - Auto 3.0 K/uL 1.5-6.6 [facility] Lymphocyte # - Auto 1.0 K/uL Low 1.5-3.5 [facility] Monocyte # - Auto 0.5 K/uL 0.0-1.0 [facility] Eosinophil # - Auto 0.3 K/uL 0.0-0.7 [facility] Basophils # - Auto 0.1 K/uL 0.0-0.1 [facility] NRBC% Automated Differential 0.1 % High <0.01 CBC 02/05/2023 [place] [address] [phone] [facility] White Blood Cell Count 4.8 K/uL 4.0-10.5 [facility] Red Blood Cell Count 3.98 Low 4.20-5. 40 Hemoglobin 12.7 g/dL 12.5-16 HCT 37.3 % 37-47 [facility] Mean Corpuscular Volume 93.7 fl 78.0 -100.0 [facility] MCH 31.8 pg High 27.0-31.0 [facility] MCHC 33.9 g/dL 32.5-36.0 [facility] Red Cell Dist Width 12.7 % 11.5-14. 0 [facility] Platelet Count 257 K/uL 150-450 [facility] MPV 8.3 fL 6.5-9.5 Laboratory test finding 02/05/2023 [facility] [address] [phone] Complement C3 176 mg/dL High 82-167 6 Complement C4 33 mg/dL 12-38 7 Jacquelin Profile Comprehensive 02/05/2023 [facility] [address] [phone] [facility] Anti-Dna DS AB 7 IU/mL 0-9 8 Ech INSURANCE HEALTHCARE CONSULTANT Abs 0.2 AI 0.0-0.9 [facility] Rivas Abs <0.2 AI 0.0-0.9 [facility] SCL-70 Abs <0.2 AI 0.0-0.9 [facility] Sjogrens Ssa AB <0.2 AI 0.0-0.9 [facility] Sjogrens SSB AB <0.2 AI 0.0-0.9 [facility] Antichromatin Abs <0.2 AI 0.0-0.9 [facility] Anti-Ritika-1 <0.2 AI 0.0-0.9 [facility] Centromere B Abs <0.2 AI 0.0-0.9 [facility] Jacquelin Note Comment 9 Laboratory test finding 02/05/2023 [place] [address] [phone] Jacquelin W/Reflex (Ech Only) Negative Negative 10 TB Quantiferon Gold, Incubated 02/05/2023 [place] [address] [phone] Ech QFT Criteria Comment 11 Ech QFT TB1 Ag Value 0.06 IU/mL Ech QFT TB2 Ag Value 0.03 IU/mL Ech QFT Nil Value 0.01 IU/mL Ech QFT Mitogen Value >10.00 IU/mL Ech QFT-TB Gold Plus CLT Inc Negative Negativ e 12 Myomarker 3 Profile 02/05/2023 [place] [address] [phone] Ech Anti-Ritika-1 AB (RDL) <20 units <20 Ech Anti-PL-7 AB (RDL) Negative Negative Ech Anti-PL-12 AB (RDL) Negative Negative Ech Anti-Ej AB (RDL) Negative Negative Ech Anti-Oj AB (RDL) Negative Negative Ech Anti-SRP AB (RDL) Negative Negative Ech Anti-PA-2 AB (RDL) Negative Negative Ech Ksrm-Ysr-7Xshyp AB (RDL) <20 units <20 Ech Anti-Mda-5 AB (Cadm-140)(RDL) <20 units <2 0 Ech Anti-NXP-2 (P140) AB (RDL) <20 units <20 Ech Anti-Sae1 AB, Igg (RDL) <20 units <20 13 Ech Anti-PM/SCL-100 AB (RDL) <20 units <20 Ech Anti-Ku AB (RDL) Negative Negative Ech Anti-SS-A 52KD AB, Igg (RDL) <20 units <20 Ech Anti-U1 INSURANCE HEALTHCARE CONSULTANT AB (RDL) <20 units <20 14 Ech Anti-U2 INSURANCE HEALTHCARE CONSULTANT AB (RDL) Negative Negative Ech Anti-U3 INSURANCE HEALTHCARE CONSULTANT (Fibrillarin)(RDL) Negative N egative 15 Laboratory test finding 02/05/2023 [place] [address] [phone] Hepatitis C Antibody Non-Reactive Non-Reactive 16 Hepatitis B Surface Antigen Non-Reactive Non-Re active 17 Hepatitis B Surface Antibody <3.5 mlU/mL Low >=12.0 18 CK 48 U/L 26-192 19 Differential, Automated 12/09/2022 [place] [address] [phone] [facility] Neutrophil % - Auto 65.4 % High 37.0-63.0 20 [facility] Lymphocyte % - Auto 20.1 % Low 33.0-37. 0 [facility] Monocyte % - Auto 7.8 % 0.0-9.0 [facility] Eosinophil % - Auto 5.6 % 0.0-7.0 [facility] Basophils % - Auto 1.1 % High 0.0-1.0 [facility] Neutrophil # - Auto 4.1 K/uL 1.5-6.6 [facility] Lymphocyte # - Auto 1.3 K/uL Low 1.5-3.5 [facility] Monocyte # - Auto 0.5 K/uL 0.0-1.0 [facility] Eosinophil # - Auto 0.4 K/uL 0.0-0.7 [facility] Basophils # - Auto 0.1 K/uL 0.0-0.1 [facility] NRBC% Automated Differential 0.2 % High <0.01 Laboratory test finding 12/09/2022 [place] [address] [phone] Jacquelin W/Reflex (Ech Only) Negative Negative 21 Double Stranded Dna (Dsdna) Antibody, Quant 7 IU/mL 0-9 22 Jacquelin Profile Comprehensive 12/09/2022 [place] [address] [phone] [facility] Anti-Dna DS AB 7 IU/mL 0-9 23 [facility] INSURANCE HEALTHCARE CONSULTANT Abs 0.2 AI 0.0-0.9 [facility] Rivas Abs <0.2 AI 0.0-0.9 [facility] SCL-70 Abs <0.2 AI 0.0-0.9 [facility] Sjogrens Ssa AB <0.2 AI 0.0-0.9 [facility] Sjogrens SSB AB <0.2 AI 0.0-0.9 [facility] Antichromatin Abs <0.2 AI 0.0-0.9 [facility] Anti-Ritika-1 <0.2 AI 0.0-0.9 [facility] Centromere B Abs <0.2 AI 0.0-0.9 [facility] Jacquelin Note Comment 24 Routine Urinalysis 12/09/2022 [place] [address] [phone] [facility] Color, Urine Light-Yellow <See Note> 25 [facility] Clarity, Urine Clear <See Note> 26 [facility] Glucose, Urine Negative mg/dL Negative, Trace [facility] Bilirubin, Urine Negative mg/dL Negativ e [facility] Ketones, Urine Negative mg/dL Negative, Trace [facility] Specific [place], Urine 1.017 1.00 3-1.030 [facility] Blood, Urine Negative Negative [facility] PH, Urine 5.5 >4.6-<7.8 [facility] Protein, Urinalysis Negative mg/dL Nega tive [facility] Urobilinogen, Urine <2.0 mg/dL 0.2, <2. 0 [facility] Nitrite, Urine Negative Negative [facility] Esterase, Urine Trace Abnormal Negative [facility] Bacteria, Urine Few /HPF Abnormal None [facility] Epithelium, Squamous Few /HPF None, F ew [facility] Erythrocytes, Urine (Num) <1 /HPF 0- 2 [facility] Leukocytes, Urine (Num) 3 /HPF 0-5 [facility] Casts, Hyaline (Num) 1 /LPF 0-2 [facility] Mucous Trace /HPF Abnormal Absent Comprehensive Metabolic Panel 12/09/2022 [place] [address] [phone] [facility] Sodium 138 mmol/L 135-146 [facility] Potassium 4.7 mmol/L 3.5-5.1 [facility] Chloride 101 mmol/L 98-107 [facility] Co2 25 mmol/L 22-32 [facility] Anion Gap 17 mmol/L 10-20 [facility] BUN 24 mg/dL High 6-20 [facility] Creatinine 1.4 mg/dL High 0.5-0.9 [facility] Estimated Glomerular Filtration Rate 41 [facility] BUN/Creatinine Ratio 17.1 12.0-20 .0 [facility] Glucose 88 mg/dL 70-120 [facility] Calcium 9.0 mg/dL 8.4-10.2 [facility] Ast/Sgot 14 U/L 10-35 [facility] Alkaline Phosphatase 104 U/L 48-153 [facility] Alt/SGPT 19 U/L 10-35 [facility] Bilirubin, Total 0.40 mg/dL 0.00-1.20 [facility] Protein, Total 7.0 g/dL 6.0-8.3 [facility] Albumin 4.5 g/dL 3.8-5.0 [facility] Globulin 2.5 g/dL 1.8-3.8 [facility] Albumin/Globulin Ratio 1.8 1.0-2 .4 Laboratory test finding 12/09/2022 [place], [place] [address] [phone] Erythrocyte Sedimentation Rate (Esr) 21 mm/hr <30 27 CBC 12/09/2022 [place], [place] [address] [phone] [facility] White Blood Cell Count 6.3 K/uL 4.0-10. 5 [facility] Red Blood Cell Count 4.00 Low 4.20-5. 40 Hemoglobin 12.6 g/dL 12.5-16 HCT 37.7 % 37-47 [facility] Mean Corpuscular Volume 94.4 fl 78.0 -100.0 [facility] MCH 31.5 pg High 27.0-31.0 [facility] MCHC 33.3 g/dL 32.5-36.0 [facility] Red Cell Dist Width 13.3 % 11.5-14. 0 [facility] Platelet Count 287 K/uL 150-450 [facility] MPV 7.9 fL 6.5-9.5 Laboratory test finding 11/30/[address] [place] [address] [phone] Cortisol, Total 17.8 g /dL Normal 28 Dhea Sulfate 164 g /dL High 9-118 29 Clinical PDF Report [id number] SEE IMAGE Laboratory test finding 11/30/[address] [place] [address] [phone] Aldosterone, LC/MS/MS 3 ng/dL see note 30 Clinical PDF Report [id number] SEE IMAGE General Health Panel 10/05/2022 [facility]. 1 [facility] [place] [address] [phone] TSH 3.89 uIU/mL 0.50-6.00 Comp. Met 10/05/2022 [facility]. 1 [facility] [place] [address] [phone] Glucose 83 mg/dL 70-110 BUN 19 mg/dL [...] 44 ML/MIN/1.73SQM Low >60 CBC W/Diff 10/05/2022 [facility]. 1 [place] [address] [phone] WBC 5.6 10^3/M3 3.1-9.2 RBC 3.92 10^6/M3 3.70-5.50 HGB 12.8 GR/DL 11.5-16.1 HCT 37.6 % 34.5-47.8 MCV 96.0 CUMICR High 82.6-95.8 MCH 32.7 PICOGR 27.9-32.9 MCHC 34.0 % 32.6-35.4 RDW 13.3 % 11.4-14.6 PLT 277 10^3/M3 140-350 MPV 8.1 CUMICR 7.0-10.6 %Neut 70.8 % 40.0-75.0 %Lymph 17.4 % 17.0-45.0 %[place] 6.8 % 1.0-11.0 %Eos 3.7 % 0.0-6.0 %Baso 1.3 % 0.0-2.0 #Neut 4.0 10^3/M3 1.5-8.0 #Lymph 1.0 10^3/M3 0.8-3.2 #[place]ham 0.4 10^3/M3 0.0-0.8 #Eos 0.2 10^3/m3 0.0-0.4 #Baso 0.1 10^3/m3 0.0-0.2 Lipid 10/05/2022 [facility]. 1 [place], [place] [address] [phone] Cholesterol 225 mg/dL High 0-200 31 Triglyceride 254 mg/dL High 0-150 32 HDLD 49 mg/dL See Comment 33 Measured LDL 143 mg/dL High 0-130 34 Calc VLDL 50.8 mg/dL See Comment 35 Chol/HDL 4.6 RATIO See Comment 36 Non-HDL 176 mg/dL See Comment 37 Laboratory test finding 10/05/2022 [facility]. 1 [place], [place] [address] [phone] Vitd-25Oh 24 ng/mL Low 30-100 1 M32.9 2 Document delivery by [employer] on behalf of 3 Colorless, Straw, Ye llow, Light-Yellow, Dark-Yellow 4 Clear, Cloudy, Sligh tly Cloudy, Other 5 Reference Range Normal <0.150 ggday High 0.150 - 0.500 ggday Very High > 0.500 ggday Nephrotic >3.000 ggday 6 Performed at: 01 - L [employer] [address] [id number] [employer]: Carmen Murray MD, Phone: [phone] Document delivery by [employer] on behalf of 7 Performed at: 01 - L [employer] [address] [place] [id number] [employer]: Carmen Murray MD, Phone: [phone] Document delivery by [employer] on behalf of 8 Negative <5 Equivocal 5 - 9 [...] Sm (anti-Rivas) SLE 15 - 30% --------- INSURANCE HEALTHCARE CONSULTANT Mixed Connective Tissue Disease 95% (U1 nRNP, SLE 30 - 50% anti-ribonucleoprotein) Polymyositis andor Dermatomyositis 20% --------- Scl-70 (antiDNA Scleroderma (diffuse) 20 - 35% topoisomerase) Crest 13% --------- Ritika-1 Polymyositis andor Dermatomyositis 20 - 40% --------- Centromere B Scleroderma - Crest variant 80% 10 Performed at: [address] [id number] [employer]: Carmen Murray MD, Phone: [phone] Document delivery by [employer] on behalf of 11 QuantiFERON-TB Gold Plus is a qualitative [...] individuals should be considered for additional testing ([facility] Clinical Practice Guidelines, 2017). The reference [...] immunoassay methodology 13 Interpretation for A nti-Ritika-1, [id number], Anti-MDA-5, Anti-NXP-2, Anti-SAE1, [id number], Anti-SS-A 52 kD, Anti-U1 INSURANCE HEALTHCARE CONSULTANT: Negative: <20 Weak Positive: 20 - 39 Moderate Positive: 40 - 80 Strong Positive: >80 14 Interpretation for A nti-Ritika-1, [id number], Anti-MDA-5, Anti-NXP-2, Anti-SAE1, [id number]-[id number], Anti-SS-A 52 kD, Anti-U1 INSURANCE HEALTHCARE CONSULTANT: Negative: <20 Weak Positive: 20 - 39 Moderate Positive: 40 - 80 Strong Positive: >80 15 Interpretation for A nti-Ritika-1, [id number], Anti-MDA-5, Anti-NXP-2, Anti-SAE1, [id number], Anti-SS-A 52 kD, Anti-U1 INSURANCE HEALTHCARE CONSULTANT: Negative: <20 Weak Positive: 20 - 39 Moderate Positive: 40 - 80 Strong Positive: >80 16 Document delivery by [employer] on behalf of 17 Document delivery by [employer] on behalf of 18 Interpretation of Re sults: >12.0 mIUml Consistent with immunity. <5.0 mIUml Not Immune >5.0 - <12.0 mIUml Indeterminate = Unable to determine if Hepatitis B Surface Antibody is present at levels consistent with immunity. Patient's immune status should be further assessed by considering other clinical information. Document delivery by [employer] on behalf of 19 Document delivery by [employer] on behalf of 20 R76.8 21 Performed at: - [facility] [address] [id number] [employer]: Carmen Murray MD, Phone: [phone] Document delivery by [employer] on behalf of 22 Negative <5 Equivocal 5 - 9 Positive >9 23 Performed at: [place] [facility] [employer] [address] [place] [id number] [employer]: Carmen Murray MD, Phone: [phone] Document delivery by [employer] on behalf of 24 Pattern Potential [facility] Homogeneous Systemic Lupus Erythematosus, Drug Induced Systemic Lupus Erythematosus, Chronic Autoimmune hepatitis, Juvenile Idiopathic Arthritis Speckled Sjogren Syndrome, Systemic Lupus Erythematosus, Subacute Cutaneous Lupus, Lupus, Congenital Heart Block, Mixed Connective Tissue Disease, Scleroderma-diffuse, Scleroderma-Autoimmune Myositis Overlap Syndrome, Systemic Lupus Mnzfnpbziwayx-Bysgsmvpaao-Cxxkkoxcrj Myositis Overlap Syndrome, Systemic Autoimmune Rheumatic Disease, [...] tly Cloudy, Other 27 Document delivery by [employer] on behalf of 28 Reference Range: For 8 a.m.(7-9 a.m.) [...] analytical performance characteristics have [facility] [place] It has not been cleared or [...] Completed 11/30/2022 G0008 Influenza Admin Completed 11/30/2022 87924 Venipuncture Routine Complet ed 10/19/2022 3078F PVRP [...] Booster 18 Yrs And Older Completed 10/05/2022 38467 Venipuncture Routine Complet ed 07/08/2022 [id number] Colonoscopy Completed 03/20/2022 [id number] Mammogram Completed Medical Devices Description No Information Available Encounters Type Date Location Provider Dx Diagnosis Office Visit 10/19/2022 9:15a aLtonya Church PA-C I10 Essential (p rimary) hypertension [...] No Church PA-C 10/12/2022 Z00.01 [facility] [...]
--- OUTSIDE RECORDS SUMMARY | 2023-03-01 09:23 | External Medical Summary ---
Author Name Unknown Address Unknown Organization [place] [address] Laboratory Report Ordering Provider Test Date Status HOMERO OCHOA 02/05/2023 09:36:11 Correction Performed at: - [facility]
[address] [place] [id number]
[employer]: Carmen Murray MD, Phone: [phone] Observation Date Value Abnormality Reference (Units ) Status ECH COMPLEMENT C4, SERUM 02/05/2023 09:36:11 33 12-38 (mg/dL) [place] [address]
--- OUTSIDE RECORDS SUMMARY | 2023-03-01 09:23 | External Medical Summary ---
Author Name Unknown Address Unknown Organization K0N:[facility], [place] [address] Laboratory Report Ordering Provider Test Date Status GABRIELAHOMERO 02/05/2023 09:36:11 Final Performed at: 01 - [facility]
[address], [place] [id number]
Cable Strander: Carmen Murray MD, Phone: [phone] Observation Date Value Abnormality Reference (Units ) Status [facility] ANTI-DNA DS AB 02/05/2023 09:36:11 7 0 -9 (IU/mL) Final Negative <5
Equivocal 5 - 9
Positive >9 [facility] TILE MACHINE OPERATOR ABS 02/05/2023 09:36:11 0.2 0.0-0.9 (AI) Final [facility] RIVAS ABS 02/05/2023 09:36:11 <0.2 0.0-0. 9 (AI) Final [facility] SCL-70 ABS 02/05/2023 09:36:11 <0.2 0.0-0 .9 (AI) Final [facility] SJOGRENS SSA AB 02/05/2023 09:36:11 <0.2 0.0-0.9 (AI) Final [facility] SJOGRENS SSB AB 02/05/2023 09:36:11 <0.2 0.0-0.9 (AI) Final [facility] ANTICHROMATIN ABS 02/05/2023 09:36:11 <0.2 0.0-0.9 (AI) Final [facility] ANTI-CHARANJIT-1 02/05/2023 09:36:11 <0.2 0.0-0. 9 (AI) Final [facility] CENTROMERE B ABS 02/05/2023 09:36:11 <0.2 0.0-0.9 (AI) Final [facility] JACQUELIN NOTE 02/05/2023 09:36:11 Comment Final Autoantibody Disease Association
<br/ > Condition Frequency
---------
Antinuclear Antibody, SLE, mixed connective
Direct (JACQUELIN-D) tissue diseases
---------
dsDNA SLE 40 - 60%
---------
Chromatin Drug induced SLE 90%
SLE 48 - 97%
---------
SSA (Ro) SLE 25 - 35%
Sjogren's Syndrome 40 - 70%
Lupus 100%
---------
SSB (La) SLE 10%
Sjogren's Syndrome 30%
---------
Sm (anti- Rivas) SLE 15 - 30%
---------
TILE MACHINE OPERATOR Mixed Connective Tissue
Disease 95%
(U1 nRNP, SLE 30 - 50%
anti-ribonucleoprotein) Polymyositis andor
Dermatomyositis 20%
---------
Scl-70 (antiDNA Scleroderma (diffuse) 20 - 35%
topoisomerase) Crest 13%
---------
Charanjit-1 Polymyositis andor
Dermatomyositis 20 - 40%
---------
Centromere B Scleroderma - Crest
variant 80% Performing Location [facility], [place] [address]
--- OUTSIDE RECORDS SUMMARY | 2023-03-01 09:23 | External Medical Summary ---
Author Name Unknown Address Unknown Organization K0N:[facility] [place] [address] Laboratory Report Ordering Provider Test Date Status HOMERO OCHOA 02/05/2023 09:36:11 Final Observation Date Value Abnormality Reference (Units ) Status [facility] PROTEIN, URINE 02/05/2023 09:36:11 <^4 0-14 (mg/dL) Final [facility] CREATININE, URINE 02/05/2023 09:36:11 34.5 28.0-217.0 (mg/dL) Final [facility] PROTEIN:CREATININE RATIO 02/05/2023 09:36:11 <^0.116 0.000-0.150 (g/g/day) Final Reference Range

Nor mal <0.150 ggday
High 0.150 - 0.500 ggday
Very High > 0.500 ggday
Nephrotic >3.000 ggday [facility] [id number]
--- OUTSIDE RECORDS SUMMARY | 2023-03-01 09:23 | External Medical Summary | Continuity of Care Document ---
Author Name Unknown Organization Family Practice [facility], [facility] Address [address] [place] [address] Phone [phone] Care Team Providers Care Undercoater Name Role Phone Tomer Maldonado M.D. Care Team Information Receive r [phone] Melissa Hull MD Care Team Information Dehydrogenation Converter Helper [phone] [facility] Care Team Information Dehydrogenation Converter Helper [phone] Problems Active Problems Provider Date Asthma No [...] SIG Qnty Indications Order ing Provider Date Uhhbneknfy23vf Tablets (On Hold Due To Leg Pain) take 1 tablet by mouth everyday at bedtime 30Tablet Naveed Bueno MD 10/12/2022 Co Q [id number] Capsules 1 by mouth daily with statin 30rene Bueno MD 10/12/2022 Meloxicam7.5mg Tablets take one to two tablets by mouth every day 180tabs Naveed Bueno MD 06/29/2022 Zyrtec Pxdhcbe57fz Tablets 1 by mouth every day generic ok 90tabs Naveed Bueno MD 05/09/[address] 1 by mouth daily 1/2 hour before eating or drinking 90caps Naveed Bueno MD 03/26/2021 Bupropion Hydrochloride ER (XL)150mg Tablets ER 24HR 1 tab by mouth daily in the morning 90tabs Naveed Bueno MD 01/06/2021 Losartan Qksdieclo18jt Tablets 1 by mouth every 12 hour 180tabs Naveed Bueno MD Stuaiman94qn Tablets 1 by mouth daily 90tabs Naveed Bueno MD Advair Rdojmw528-03ufc/Dose Aerosol 1 as needed 60units Unknown Albuterol Sulfate NFV215(90Base) mcg/Act Aerosol 2 puffs by mouth every 4-6 hours as needed wheezing 6.700gm Naveed Bueno MD Hydroxychloroquine Uecwklx593ix Tablets 1 po bid with food Unknown Glucosamine Chondroitin 1500 Lmqkycj2380Hwc Capsules 2 by mouth every day as Needed Unknown Ecuqbsihso721yp Capsules take 3 capsules by mouth daily Unknown Qqaxuhsyj63dr Tablets 1 Tab PO as Needed For Dizziness Unknown [place]-3 [id number] Capsules 3 by mouth every day (3000 MG) Unknown Oxprzwxvoih37aw Tablets 1 Tab PO Daily U nknown Immunizations CPT Code Status Date Vaccine Lot # [id number] Given 11/30/2022 Influenza Vac, Split, Preservative Free High Dose Age 65 & > [id number] 80173 Given 10/12/2022 Moderna Sars-Co v-2 (Covid-19) Vaccine, BiValent Booster [id number] 23338 Given 12/24/2021 Influenza Virus Vaccine, Recombinant Dna, Hemagglutnin Protein On [id number] 17536 Given 10/10/2021 Moderna Covid-1 9 Vaccine 50mcg Booster-EMR Doc Only [id number] 66106 Given 08/11/2021 Pneumococcal Conjugate-Pr evnar 20 [id number] 64765 Given 01/24/2021 Moderna Covid-1 9 Vaccine 50mcg Booster-EMR Doc Only [id number] 22706 Given 01/03/2021 Influenza Virus Vaccine, Recombinant Dna, Hemagglutnin Protein On [id number] 66575 Given 04/18/2020 Moderna Sars-Co v-2 (Cov-19) vacc,100 mcg/ 0.5 mL 12Y+EMR Doc Only [id number] Given 03/14/2020 Moderna Sars-Co v-2 (Cov-19) vacc,100 mcg/ 0.5 mL 12Y+EMR Doc Only [id number] Refused 10/10/2021 Shingrix Vital Signs Date Vital Result Comment 11/30/2022 9:02am Body Temperature 96.9 F 10/19/2022 9:16am BP Systolic 130 mmHg BP Diastolic 64 mmHg Body Temperature 97.5 F Heart Rate 84 /min Respiratory Rate 18 /min Results Test Acquired Date Facility Test Result H/L Range N ote Comprehensive Metabolic Panel 02/05/2023 [place] [address] [phone] [facility], [facility] Lab Sodium 134 mmol/L Low 135-146 1 [facility], [facility] Lab Potassium 4.7 mmol/L 3.5-5.1 [facility], [facility]1983 Lab Chloride 99 mmol/L 98-107 [facility], [facility] Lab Co2 24 mmol/L 22-32 [facility], [facility] Lab Anion Gap 16 mmol/L 10-20 [facility], [facility] Lab BUN 22 mg/dL High 6-20 [facility], [facility] Lab Creatinine 1.3 mg/dL High 0.5-0.9 [facility], [facility]1983 Lab Estimated Glomerular Filtration Rate 45 [facility], [facility]1983 Lab BUN/Creatinine Ratio 16.9 12.0-20 .0 [facility], [facility] Lab Glucose 80 mg/dL 70-120 [facility], [facility] Lab Calcium 9.1 mg/dL 8.4-10.2 [facility], [facility] Lab Ast/Sgot 15 U/L 10-35 [facility], [facility] Lab Alkaline Phosphatase 105 U/L 48-153 [facility], [facility] Lab Alt/SGPT 15 U/L 10-35 [facility], [facility] Lab Bilirubin, Total 0.40 mg/dL 0.00-1.20 [facility], [facility] Lab Protein, Total 7.1 g/dL 6.0-8.3 [facility], [facility] Lab Albumin 4.5 g/dL 3.8-5.0 [facility], [facility] Lab Globulin 2.6 g/dL 1.8-3.8 [facility], [facility] Lab Albumin/Globulin Ratio 1.7 1.0-2 .4 [facility] test [facility] [address] [phone] Erythrocyte Sedimentation Rate (Esr) 18 mm/hr <30 2 Routine Urinalysis [facility] [address] [phone] [facility], [facility] Lab Color, Urine Colorless <See Note> 3 [facility], [facility] Lab Clarity, Urine Clear <See Note> 4 [facility], [facility] Lab Glucose, Urine Negative mg/dL Negative, Trace [facility], [facility] Lab Bilirubin, Urine Negative mg/dL Negativ e [facility], [facility] Lab Ketones, Urine Negative mg/dL Negative, Trace [facility], [facility] Lab Specific [place], Urine 1.007 1.00 3-1.030 [facility], [facility] Lab Blood, Urine Negative Negative [facility], [facility] Lab PH, Urine 5.5 >4.6-<7.8 [facility], [facility] Lab Protein, Urinalysis Negative mg/dL Nega tive [facility], [facility] Lab Urobilinogen, Urine <2.0 mg/dL 0.2, <2. 0 [facility], [facility] Lab Nitrite, Urine Negative Negative [facility], [facility] Lab Esterase, Urine Small Abnormal Negative [facility], [facility] Lab Bacteria, Urine None /HPF None [facility], [facility] Lab Epithelium, Squamous Few /HPF None, F ew [facility], [facility] Lab Erythrocytes, Urine (Num) 0 /HPF 0- 2 [facility], [facility] Lab Leukocytes, Urine (Num) 6 /HPF High 0-5 [facility], [facility]–1983 Lab Epithelium, Transitional Few /HPF Abnormal Non e Protein Creatinine Ratio 02/05/2023 [place], [place] [id number] [phone] [facility], [facility] Lab Protein, Urine <4 mg/dL 0-14 [facility], [facility] Lab Creatinine, Urine 34.5 mg/dL 28.0-217.0 [facility], [facility] Lab Protein:Creatinine Ratio <0.116 g/g/day 0.000-0.150 5 Differential, Automated 02/05/2023 [place], [place] [address] [phone] [facility], [facility] Lab Neutrophil % - Auto 62.5 % 37.0-63.0 [facility], [facility] Lab Lymphocyte % - Auto 20.1 % Low 33.0-37. 0 [facility], [facility] Lab Monocyte % - Auto 10.3 % High 0.0-9.0 [facility], [facility] Lab Eosinophil % - Auto 5.9 % 0.0-7.0 [facility], [facility] Lab Basophils % - Auto 1.2 % High 0.0-1.0 [facility], [facility] Lab Neutrophil # - Auto 3.0 K/uL 1.5-6.6 [facility], [facility] Lab Lymphocyte # - Auto 1.0 K/uL Low 1.5-3.5 [facility], [facility] Lab Monocyte # - Auto 0.5 K/uL 0.0-1.0 [facility], [facility] Lab Eosinophil # - Auto 0.3 K/uL 0.0-0.7 [facility], [facility] Lab Basophils # - Auto 0.1 K/uL 0.0-0.1 [facility], [facility] Lab NRBC% Automated Differential 0.1 % High <0.01 CBC 02/05/2023 [place] [address] [phone] [facility], [facility] Lab White Blood Cell Count 4.8 K/uL 4.0-10.5 [facility], [facility] Lab Red Blood Cell Count 3.98 Low 4.20-5. 40 Hemoglobin 12.7 g/dL 12.5-16 HCT 37.3 % 37-47 [facility], [facility]1983 Lab Mean Corpuscular Volume 93.7 fl 78.0 -100.0 [facility], [facility] Lab MCH 31.8 pg High 27.0-31.0 [facility], [facility] Lab MCHC 33.9 g/dL 32.5-36.0 [facility], [facility] Lab Red Cell Dist Width 12.7 % 11.5-14. 0 [facility], [facility] Lab Platelet Count 257 K/uL 150-450 [facility], [facility] Lab MPV 8.3 fL 6.5-9.5 Laboratory test finding 02/05/2023 [place] [address] [phone] Hepatitis C Antibody Non-Reactive Non-Reactive 6 Hepatitis B Surface Antigen Non-Reactive Non-Re active 7 Hepatitis B Surface Antibody <3.5 mlU/mL Low >=12.0 8 CK 48 U/L 26-192 9 Comprehensive Metabolic Panel 12/09/2022 [place] [address] [phone] [facility], [facility] Lab Sodium 138 mmol/L 135-146 10 [facility], [facility] Lab Potassium 4.7 mmol/L 3.5-5.1 [facility], [facility] Lab Chloride 101 mmol/L 98-107 [facility], [facility] Lab Co2 25 mmol/L 22-32 [facility], [facility] Lab Anion Gap 17 mmol/L 10-20 [facility], [facility] Lab BUN 24 mg/dL High 6-20 [facility], [facility] Lab Creatinine 1.4 mg/dL High 0.5-0.9 [facility], [facility] Lab Estimated Glomerular Filtration Rate 41 [facility], [facility] Lab BUN/Creatinine Ratio 17.1 12.0-20 .0 [facility], [facility] Lab Glucose 88 mg/dL 70-120 [facility], [facility] Lab Calcium 9.0 mg/dL 8.4-10.2 [facility], [facility] Lab Ast/Sgot 14 U/L 10-35 [facility], [facility] Lab Alkaline Phosphatase 104 U/L 48-153 [facility], [facility] Lab Alt/SGPT 19 U/L 10-35 [facility], [facility] Lab Bilirubin, Total 0.40 mg/dL 0.00-1.20 [facility], [facility] Lab Protein, Total 7.0 g/dL 6.0-8.3 [facility], [facility]1983 Lab Albumin 4.5 g/dL 3.8-5.0 Ech Lab Globulin 2.5 g/dL 1.8-3.8 [facility], [facility] Lab Albumin/Globulin Ratio 1.8 1.0-2 .4 Laboratory test finding 12/09/2022 [place] [address] [phone] Shelly W/Reflex (Ech Only) Negative Negative 11 Double Stranded Dna (Dsdna) Antibody, Quant 7 IU/mL 0-9 12 Shelly Profile Comprehensive 12/09/2022 [place] [address] [phone] [facility], [facility] Anti-Dna DS AB 7 IU/mL 0-9 13 [facility], [facility]1983 DIRECTOR OF ALUMNI RELATIONS Abs 0.2 AI 0.0-0.9 Ech Rivas Abs <0.2 AI 0.0-0.9 [facility], [facility]1983 SCL-70 Abs <0.2 AI 0.0-0.9 [facility], [facility]1983 Sjogrens Ssa AB <0.2 AI 0.0-0.9 [facility], [facility]1983 Sjogrens SSB AB <0.2 AI 0.0-0.9 [facility], [facility] Antichromatin Abs <0.2 AI 0.0-0.9 [facility], [facility]1983 Anti-Ritiak-1 <0.2 AI 0.0-0.9 [facility], [facility]–1983 Centromere B Abs <0.2 AI 0.0-0.9 [facility], [facility] Shelly Note Comment 14 Routine Urinalysis 12/09/2022 [place] [address] [phone] [facility], [facility] Lab Color, Urine Light-Yellow <See Note> 15 [facility], [facility] Lab Clarity, Urine Clear <See Note> 16 [facility], [facility] Lab Glucose, Urine Negative mg/dL Negative, Trace [facility], [facility] Lab Bilirubin, Urine Negative mg/dL Negativ e [facility], [facility] Lab Ketones, Urine Negative mg/dL Negative, Trace [facility], [facility] Lab Specific [place], Urine 1.017 1.00 3-1.030 [facility], [facility] Lab Blood, Urine Negative Negative [facility], [facility] Lab PH, Urine 5.5 >4.6-<7.8 [facility], [facility] Lab Protein, Urinalysis Negative mg/dL Nega tive [facility], [facility]1983 Lab Urobilinogen, Urine <2.0 mg/dL 0.2, <2. 0 [facility], [facility] Lab Nitrite, Urine Negative Negative [facility], [facility] Lab Esterase, Urine Trace Abnormal Negative [facility], [facility] Lab Bacteria, Urine Few /HPF Abnormal None [facility], [facility] Lab Epithelium, Squamous Few /HPF None, F ew [facility], [facility]1983 Lab Erythrocytes, Urine (Num) <1 /HPF 0- 2 [facility], [facility] Lab Leukocytes, Urine (Num) 3 /HPF 0-5 [facility], [facility]1983 Lab Casts, Hyaline (Num) 1 /LPF 0-2 [facility], [facility]1983 Lab Mucous Trace /HPF Abnormal Absent Laboratory test finding 12/09/2022 [place] [address] [phone] Erythrocyte Sedimentation Rate (Esr) 21 mm/hr <30 17 Differential, Automated 12/09/2022 [place] [address] [phone] [facility], [facility] Lab Neutrophil % - Auto 65.4 % High 37.0-6 3.0 [facility], [facility] Lab Lymphocyte % - Auto 20.1 % Low 33.0-37. 0 [facility], [facility] Lab Monocyte % - Auto 7.8 % 0.0-9.0 [facility], [facility] Lab Eosinophil % - Auto 5.6 % 0.0-7.0 [facility], [facility] Lab Basophils % - Auto 1.1 % High 0.0-1.0 [facility], [facility] Lab Neutrophil # - Auto 4.1 K/uL 1.5-6.6 [facility], [facility] Lab Lymphocyte # - Auto 1.3 K/uL Low 1.5-3.5 [facility], [facility]1983 Lab Monocyte # - Auto 0.5 K/uL 0.0-1.0 [facility], [facility] Lab Eosinophil # - Auto 0.4 K/uL 0.0-0.7 [facility], [facility] Lab Basophils # - Auto 0.1 K/uL 0.0-0.1 [facility], [facility]1983 Lab NRBC% Automated Differential 0.2 % High <0.01 CBC 12/09/2022 [facility] [address] [phone] [facility], [facility] Lab White Blood Cell Count 6.3 K/uL 4.0-10.5 [facility], [facility]1983 Lab Red Blood Cell Count 4.00 Low 4.20-5. 40 Hemoglobin 12.6 g/dL 12.5-16 HCT 37.7 % 37-47 [facility], [facility]1983 Lab Mean Corpuscular Volume 94.4 fl 78.0 -100.0 [facility], [facility]1983 Lab MCH 31.5 pg High 27.0-31.0 [facility], [facility] Lab MCHC 33.3 g/dL 32.5-36.0 [facility], [facility] Lab Red Cell Dist Width 13.3 % 11.5-14. 0 [facility], [facility] Lab Platelet Count 287 K/uL 150-450 [facility], [facility] Lab MPV 7.9 fL 6.5-9.5 Laboratory test finding 11/30/2022 [employer] [place] [address] [phone] Cortisol, Total 17.8 g /dL Normal 18 Dhea Sulfate 164 g /dL High 9-118 19 Clinical PDF Report [id number] SEE IMAGE Laboratory test finding 11/30/2022 [employer] [place] [address] [phone] Aldosterone, LC/MS/MS 3 ng/dL see note 20 Clinical PDF Report [id number] SEE IMAGE General Health Panel 10/05/2022 [facility] [address] [place], [place] [id number] [phone] TSH 3.89 uIU/mL 0.50-6.00 Comp. Met 10/05/2022 [facility] [address] [place], [place] [id number] [phone] Glucose 83 mg/dL 70-110 BUN 19 mg/dL [...] 44 ML/MIN/1.73SQM Low >60 CBC W/Diff 10/05/2022 [facility]. [address] [place] [address] [phone] WBC 5.6 10^3/M3 3.1-9.2 RBC 3.92 10^6/M3 3.70-5.50 HGB 12.8 GR/DL 11.5-16.1 HCT 37.6 % 34.5-47.8 MCV 96.0 CUMICR High 82.6-95.8 MCH 32.7 PICOGR 27.9-32.9 MCHC 34.0 % 32.6-35.4 RDW 13.3 % 11.4-14.6 PLT 277 10^3/M3 140-350 MPV 8.1 CUMICR 7.0-10.6 %Neut 70.8 % 40.0-75.0 %Lymph 17.4 % 17.0-45.0 %Gregg 6.8 % 1.0-11.0 %Eos 3.7 % 0.0-6.0 %Baso 1.3 % 0.0-2.0 #Neut 4.0 10^3/M3 1.5-8.0 #Lymph 1.0 10^3/M3 0.8-3.2 #Gregg 0.4 10^3/M3 0.0-0.8 #Eos 0.2 10^3/m3 0.0-0.4 #Baso 0.1 10^3/m3 0.0-0.2 Lipid 10/05/2022 [facility] [address] [place] [address] [phone] Cholesterol 225 mg/dL High 0-200 21 Triglyceride 254 mg/dL High 0-150 22 HDLD 49 mg/dL See Comment 23 Measured LDL 143 mg/dL High 0-130 24 Calc VLDL 50.8 mg/dL See Comment 25 Chol/HDL 4.6 RATIO See Comment 26 Non-HDL 176 mg/dL See Comment 27 Laboratory test finding 10/05/2022 [facility] [address] [place] [address] [phone] Vitd-25Oh 24 ng/mL Low 30-100 1 M32.9 2 Document delivery by [employer] on behalf of [facility] 3 Colorless, Straw, Ye llow, Light-Yellow, Dark-Yellow 4 Clear, Cloudy, Sligh tly Cloudy, Other 5 Reference Range Normal <0.150 ggday High 0.150 - 0.500 ggday Very High > 0.500 ggday Nephrotic >3.000 ggday 6 Document delivery by [employer] on behalf of [facility] 7 Document delivery by [employer] on behalf of [facility] 8 Interpretation of Re sults: >12.0 mIUml Consistent with immunity. <5.0 mIUml Not Immune >5.0 - <12.0 mIUml Indeterminate = Unable to determine if Hepatitis B Surface Antibody is present at levels consistent with immunity. Patient's immune status should be further assessed by considering other clinical information. Document delivery by [employer] on behalf of [facility] 9 Document delivery by [employer] on behalf of [facility] 10 R76.8 11 Performed at: [facility] [address] [id number] Assessment Clinician: Carmen Murray MD, Phone: [phone] Document delivery by [employer] on behalf of [facility] 12 Negative <5 Equivocal 5 - 9 Positive >9 13 Performed at: [facility] [address] [place] [id number] Assessment Clinician: Carmen Murray MD, Phone: [phone] Document delivery by [employer] on behalf of [facility] 14 Pattern Potential [facility] Homogeneous Systemic Lupus Erythematosus, Drug Induced Systemic Lupus Erythematosus, Chronic Autoimmune hepatitis, Juvenile Idiopathic Arthritis Speckled Sjogren Syndrome, Systemic Lupus Erythematosus, Subacute Cutaneous Lupus, Lupus, Congenital Heart Block, Mixed Connective Tissue Disease, Scleroderma-diffuse, Scleroderma-Autoimmune Myositis Overlap Syndrome, Systemic Lupus Hjpfkxwmjryny-Gaxmxgmldxf-Yrqpjskhnv Myositis Overlap Syndrome, Systemic Autoimmune Rheumatic Disease, Undifferentiated Connective Tissue Disease Nucleolar Systemic Sclerosis, Scleroderma-Autoimmune Myositis Overlap Syndrome, Sjogren Syndrome, Raynaud phenomenon, Pulmonary Arterial Hypertension, Systemic Autoimmune Rheumatic Disease, Cancer Centromere Scleroderma-CREST, Limited Cutaneous SSc, Raynaud's Phenomenon, Primary Biliary Cholangitis Nuclear Dot Primary Biliary Cholangitis Nuclear Primary Biliary Cholangitis, Autoimmune Membrane HepatitisLiver disease, Systemic Autoimmune Rheumatic Disease, Autoimmune Cytopenias, Linear Scleroderma, Antiphospholipid Syndrome 15 Colorless, Straw, Ye llow, Light-Yellow, Dark-Yellow 16 Clear, Cloudy, Sligh tly Cloudy, Other 17 Document delivery by [employer] on behalf of [facility] 18 Reference Range: For 8 a.m.(7-9 a.m.) Specimen: 4.0-22.0 Reference Range: For 4 p.m.(3-5 p.m.) Specimen: 3.0-17.0 * Please interpret above results accordingly * 19 DHEA-S values fall w ith advancing age. For reference, the reference intervals for 31-40 year old patients are: Male: 93-415 mcg/dL Female: 19-237 mcg/dL 20 Unable to flag abnor mal result(s), please refer to reference range(s) below: Adult Reference Ranges for Aldosterone, LC/MS/MS: Upright 8:00 - 10:00 am < or = 28 ng/dL Upright 4:00 - 6:00 pm < or = 21 ng/dL Supine 8:00 - 10:00 am 3 - 16 ng/dL This test was developed and its analytical performance characteristics have been determined by [employer]. It has not been cleared or approved by the U.S. Food and Drug Administration. This assay has been validated pursuant to the CLIA regulations and is used for clinical purposes. 21 CHOLESTEROL Less than 200mg/dl Low risk 201-239 mg/dl Borderline risk Equal to or greater 240mg/dl High risk 22 TRIGLYCERIDES Less than 150mg/dl Normal 150-199mg/dl Borderline 200-499mg/dl High Greater than 500mg/dl Very High 23 HDL <40mg/dl Elevated Risk 41-59mg/dl Risk >=60mg/dl Least Risk 24 LDL <100mg/dl Optimal 100-129mg/dl Near Optimal 130-159mg/dl Borderline High 160-189mg/dl High >=190 Very High 25 VLDL Less than 30mg/dl Normal 26 CHOL/HDL <4.0 Optimal 4.0-5.0 Borderline >6.0 High Risk 27 NON-HDL 30mg/dl higher than LDL Target Procedures Date Code Description Status 11/30/2022 G0008 Influenza Admin Completed 11/30/2022 85754 Venipuncture Routine Complet ed 10/19/2022 3078F PVRP [...] Booster 18 Yrs And Older Completed 10/05/2022 10796 Venipuncture Routine Complet ed 07/08/2022 [id number] Colonoscopy Completed 03/20/2022 [id number] Mammogram Completed Medical Devices Description No Information [...] 11/30/2022 Z23 Encounter for immunization S shayne Chruch PA-C 11/30/2022 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 [...] MD 10/05/2022 E78.5 Hyperlipidemia, unspecified Lab - [place] 10/05/2022 I10 Essential (primary) hypertmayo Bueno MD 10/05/2022 I10 Essential (primary) hyperten susannah [facility] 10/05/2022 N18.32 Chronic kidney disease, stag e 3b Naveed Bueno MD 10/05/2022 N18.32 Chronic kidney disease, stag e 3b [facility] 10/05/2022 E55.9 Vitamin D deficiency, unspec ified Naveed Bueno MD 10/05/2022 E55.9 Vitamin D deficiency, unspec ified [facility] Plan of Treatment Future Appointment(s):* 02/12/2023 8:30 am - Naveed Bueno MD at [place] Functional Status Description No Information Available Mental Status Description No Information Available Referrals Description No Information Available"
--- OUTSIDE RECORDS SUMMARY | 2023-03-01 09:23 | External Medical Summary ---
Author Name Unknown Address Unknown Organization K0N:[facility], [place] [address] Laboratory Report Ordering Provider Test Date Status CROW OCHOAMELVINA 02/05/2023 09:36:11 Final Observation Date Value Abnormality Reference (Units ) Status [facility] NEUTROPHIL % - AUTO 02/05/2023 09:36:11 62.5 37.0-63.0 (%) Final [facility] LYMPHOCYTE % - AUTO 02/05/2023 09:36:11 20.1 Below low normal 33.0-37.0 (%) Final [facility] MONOCYTE % - AUTO 02/05/2023 09:36:11 10.3 Above high normal 0.0-9.0 (%) Final [facility] EOSINOPHIL % - AUTO 02/05/2023 09:36:11 5.9 0.0-7.0 (%) Final [facility] BASOPHILS % - AUTO 02/05/2023 09:36:11 1.2 Above high normal 0.0-1.0 (%) Final [facility] NEUTROPHIL # - AUTO 02/05/2023 09:36:11 3.0 1.5-6.6 (K/uL) Final [facility] LYMPHOCYTE # - AUTO 02/05/2023 09:36:11 1.0 Below low normal 1.5-3.5 (K/uL) Final [facility] MONOCYTE # - AUTO 02/05/2023 09:36:11 0.5 0.0-1.0 (K/uL) Final [facility] EOSINOPHIL # - AUTO 02/05/2023 09:36:11 0.3 0.0-0.7 (K/uL) Final [facility] BASOPHILS # - AUTO 02/05/2023 09:36:11 0.1 0.0-0.1 (K/uL) Final [facility] NRBC% AUTOMATED DIFFERENTIAL 02/05/2023 09:36:11 0.1 Above high normal <0.01 (%) Final Performing Location [place] [address]
--- OUTSIDE RECORDS SUMMARY | 2023-03-01 09:23 | External Medical Summary ---
Author Name Unknown Address Unknown Organization K[facility] [address], [place], [place] [address] Laboratory Report Ordering Provider Test Date Status RAY OCHOAADELINE 02/05/2023 09:36:11 Final Observation Date Value Abnormality Reference (Units ) Status [facility] SODIUM 02/05/2023 09:36:11 134 Below low normal 135-146 (mmol/L) Final [facility] POTASSIUM 02/05/2023 09:36:11 4.7 3.5-5.1 (mmol/L) Final [facility] CHLORIDE 02/05/2023 09:36:11 99 98-107 (mmol/L) Final [facility] CO2 02/05/2023 09:36:11 24 22-32 (mmol/L) Final [facility] ANION GAP 02/05/2023 09:36:11 16 10-20 (mmol/L) Final [facility] BUN 02/05/2023 09:36:11 22 Above high normal 6-20 (mg/dL) Final [facility] CREATININE 02/05/2023 09:36:11 1.3 Above high normal 0.5-0.9 (mg/dL) Final [facility] ESTIMATED GLOMERULAR FILTRATION RATE 02/05/2023 09:36:11 45 Final [facility] BUN/CREATININE RATIO 02/05/2023 09:36:11 16.9 12.0-20.0 Final [facility] GLUCOSE 02/05/2023 09:36:11 80 70-120 (mg/dL) Final [facility] CALCIUM 02/05/2023 09:36:11 9.1 8.4-10.2 (mg/dL) Final [facility] AST/SGOT 02/05/2023 09:36:11 15 10-35 (U/L) Final [facility] ALKALINE PHOSPHATASE 02/05/2023 09:36:11 105 48-153 (U/L) Final [facility] ALT/SGPT 02/05/2023 09:36:11 15 10-35 (U/L) Final [facility] BILIRUBIN, TOTAL 02/05/2023 09:36:11 0.40 0.00-1.20 (mg/dL) Final [facility] PROTEIN, TOTAL 02/05/2023 09:36:11 7.1 6.0-8.3 (g/dL) Final [facility] ALBUMIN 02/05/2023 09:36:11 4.5 3.8-5.0 (g/dL) Final [facility] GLOBULIN 02/05/2023 09:36:11 2.6 1.8-3.8 (g/dL) Final [facility] ALBUMIN/GLOBULIN RATIO 02/05/2023 09:36:11 1.7 1.0-2.4 Final Performing Location [facility], [place] [address]
--- OUTSIDE RECORDS SUMMARY | 2023-03-01 09:23 | External Medical Summary ---
Author Name Unknown Address Unknown Organization K0N:[facility], [place] [address] Laboratory Report Ordering Provider Test Date Status GABRIELAHOMERO 02/05/2023 09:36:11 Final Observation Date Value Abnormality Reference (Units ) Status [facility] WHITE BLOOD CELL COUNT 02/05/2023 09:36:11 4.8 4.0-10.5 (K/uL) Final [facility] RED BLOOD CELL COUNT 02/05/2023 09:36:11 3.98 Below low normal 4.20-5.40 Final Hemoglobin 02/05/2023 09:36:11 12.7 12.5-16 (g/dL) Final HCT 02/05/2023 09:36:11 37.3 37-47 (%) Final [facility] MEAN CORPUSCULAR VOLUME 02/05/2023 09:36:11 93.7 78.0-100.0 (fl) Final [facility] MCH 02/05/2023 09:36:11 31.8 Above high normal 27.0-31.0 (pg) Final [facility] MCHC 02/05/2023 09:36:11 33.9 32.5-36.0 (g/dL) Final [facility] RED CELL DIST WIDTH 02/05/2023 09:36:11 12.7 11.5-14.0 (%) Final [facility] PLATELET COUNT 02/05/2023 09:36:11 257 150-450 (K/uL) Final [facility] MPV 02/05/2023 09:36:11 8.3 6.5-9.5 (fL) Final Performing Location [facility], [place] [address]
--- OUTSIDE RECORDS SUMMARY | 2023-03-01 09:23 | External Medical Summary ---
Author Name Unknown Address Unknown Organization [facility], [place] [address] Laboratory Report Ordering Provider Test Date Status HOMERO OCHOA 02/05/2023 09:36:11 Final [facility]formed [facility]
[address] [place] [phone]
Gold Tooler: Carmen Murray MD, Phone: [phone] Observation Date Value Abnormality Reference (Units ) Status [facility] QFT CRITERIA 02/05/2023 09:36:11 Comment Final QuantiFERON-TB Gold Plus is a qualitative indirect test for
M tuberculosis infection (including disease) and is intended for use
in conjunction with risk assessment, radiography, and other medical
and diagnostic evaluations. The QuantiFERON-TB Gold Plus result is
determined by subtracting the Nil value from either TB antigen (Ag)
value. The Mitogen tube serves as a control for the test. [facility] QFT TB1 AG VALUE 02/05/2023 09:36:11 0.06 (IU/mL) Final [facility] QFT TB2 AG VALUE 02/05/2023 09:36:11 0.03 (IU/mL) Final [facility] QFT NIL VALUE 02/05/2023 09:36:11 0.01 (I U/mL) Final [facility] QFT MITOGEN VALUE 02/05/2023 09:36:11 >10.00 (IU/mL) Final [facility] QFT-TB GOLD PLUS CLT INC 02/05/2023 09:36:11 Negative Negative Final No response to M tuberculosi s antigens detected.
Infection with M tuberculosis is [...] production of interferon gamma.
Chemiluminescence immunoassay methodology [place] [address]
--- OUTSIDE RECORDS SUMMARY | 2023-03-01 09:23 | External Medical Summary | Continuity of Care Document ---
Author Name Unknown Organization Family Practice [facility] Address [address] [place] [address] Phone [phone] Care Team Providers Care Drilling Engineer Name Role Phone Tomre Maldonado M.D. Care Team Information Receive r [phone] Melissa Hull MD Care Team Information It Consulting Director [phone] [facility] Care Team Information It Consulting Director [phone] Problems Active Problems Provider Date Asthma No [...] SIG Qnty Indications Order ing Provider Date Nsxctkzqxw91sq Tablets (On Hold Due To Leg Pain) take 1 tablet by mouth everyday at bedtime 30Tablet Naveed Bueno MD 10/12/2022 Co Q 15045mq Capsules 1 by mouth daily with statin 30rene Bueno MD 10/12/2022 Meloxicam7.5mg Tablets take one to two tablets by mouth every day 180tabs Naveed Bueno MD 06/29/2022 Zyrtec Foxshnx94ad Tablets 1 by mouth every day generic ok 90tabs Naveed Bueno MD 05/09/[address] 1 by mouth daily 1/2 hour before eating or drinking 90caps Naveed Bueno MD 03/26/2021 Bupropion Hydrochloride ER (XL)150mg Tablets ER 24HR 1 tab by mouth daily in the morning 90tabs Naveed Bueno MD 01/06/2021 Losartan Nzpxdbtei88fe Tablets 1 by mouth every 12 hour 180tabs Naveed Bueno MD Nafzgeki96og Tablets 1 by mouth daily 90tabs Naveed Bueno MD Advair Wdycua064-64btz/Dose Aerosol 1 as needed 60units Unknown Albuterol Sulfate VTI897(90Base) mcg/Act Aerosol 2 puffs by mouth every 4-6 hours as needed wheezing 6.700gm Naveed Bueno MD Hydroxychloroquine Nyquvrx220of Tablets 1 po bid with food Unknown Glucosamine Chondroitin 1500 Ffufacp8162Bzd Capsules 2 by mouth every day as Needed Unknown Xzuqrmnntf630kb Capsules take 3 capsules by mouth daily Unknown Pmyscvvkw73nd Tablets 1 Tab PO as Needed For Dizziness Unknown [place]-3 LB6029vu Capsules 3 by mouth every day (3000 MG) Unknown Vrhzvjqmslw88pr Tablets 1 Tab PO Daily U nknown Immunizations CPT Code Status Date Vaccine Lot # [id number] Given 11/30/2022 Influenza Vac, Split, Preservative Free High Dose Age 65 & > [id number] 95785 Given 10/12/2022 Moderna Sars-Co v-2 (Covid-19) Vaccine, BiValent Booster 12y+ [id number] 92010 Given 12/24/2021 Influenza Virus Vaccine, Recombinant Dna, Hemagglutnin Protein On [id number] 56617 Given 10/10/2021 Moderna Covid-1 9 Vaccine 50mcg Booster-EMR Doc Only [id number] 24568 Given 08/11/2021 Pneumococcal Conjugate-Pr evnar [id number] 40003 Given 01/24/2021 Moderna Covid-1 9 Vaccine 50mcg Booster-EMR Doc Only [id number] 55857 Given 01/03/2021 Influenza Virus Vaccine, Recombinant Dna, Hemagglutnin Protein On [id number] 55586 Given 04/18/2020 Moderna Sars-Co v-2 (Cov-19) vacc,100 mcg/ 0.5 mL 12Y+EMR Doc Only [id number] Given 03/14/2020 Moderna Sars-Co v-2 (Cov-19) vacc,100 mcg/ 0.5 mL 12Y+EMR Doc Only [id number] Refused 10/10/2021 Shingrix Vital Signs Date Vital Result Comment 11/30/2022 9:02am Body Temperature 96.9 F 10/19/2022 9:16am BP Systolic 130 mmHg BP Diastolic 64 mmHg Body Temperature 97.5 F Heart Rate 84 /min Respiratory Rate 18 /min Results Test Acquired Date Facility Test Result H/L Range N ote Comprehensive Metabolic Panel 02/05/2023 [facility] [place] [address] [phone] [facility] Sodium 134 mmol/L Low 135-146 1 [facility] Potassium 4.7 mmol/L 3.5-5.1 [facility] Chloride 99 mmol/L 98-107 [facility] Co2 24 mmol/L 22-32 [facility] Anion Gap 16 mmol/L 10-20 [facility] BUN 22 mg/dL High 6-20 [facility] Creatinine 1.3 mg/dL High 0.5-0.9 [facility] Estimated Glomerular Filtration Rate 45 [facility] BUN/Creatinine Ratio 16.9 12.0-20 .0 [facility] Glucose 80 mg/dL 70-120 [facility] Calcium 9.1 mg/dL 8.4-10.2 [facility] Ast/Sgot 15 U/L 10-35 [facility] Alkaline Phosphatase 105 U/L 48-153 [facility] Alt/SGPT 15 U/L 10-35 [facility] Bilirubin, Total 0.40 mg/dL 0.00-1.20 [facility] Protein, Total 7.1 g/dL 6.0-8.3 [facility] Albumin 4.5 g/dL 3.8-5.0 [facility] Globulin 2.6 g/dL 1.8-3.8 [facility] Albumin/Globulin Ratio 1.7 1.0-2 .4 Laboratory test finding [facility] [address] [phone] Erythrocyte Sedimentation Rate (Esr) 18 mm/hr <30 2 Routine Urinalysis 02/05[facility]20[facility] [address] [phone] [facility] Color, Urine Colorless <See Note> 3 [facility] Clarity, Urine Clear <See Note> 4 [facility] Glucose, Urine Negative mg/dL Negative, Trace [facility] Bilirubin, Urine Negative mg/dL Negativ e [facility] Ketones, Urine Negative mg/dL Negative, Trace [facility] Specific [place], Urine 1.007 1.00 3-1.030 [facility] Blood, Urine Negative Negative [facility] PH, Urine 5.5 >4.6-<7.8 [facility] Protein, Urinalysis Negative mg/dL Nega tive [facility] Urobilinogen, Urine <2.0 mg/dL 0.2, <2. 0 [facility] Nitrite, Urine Negative Negative [facility] Esterase, Urine Small Abnormal Negative [facility] Bacteria, Urine None /HPF None [facility] Epithelium, Squamous Few /HPF None, F ew [facility] Erythrocytes, Urine (Num) 0 /HPF 0- 2 [facility] Leukocytes, Urine (Num) 6 /HPF High 0-5 [facility] Epithelium, Transitional Few /HPF Abnormal Non e Protein Creatinine Ratio 02/05/2023 [place], [place] [id number] [phone] [facility] Protein, Urine <4 mg/dL 0-14 [facility] Creatinine, Urine 34.5 mg/dL 28.0-217.0 [facility] Protein:Creatinine Ratio <0.116 g/g/day 0.000-0.150 5 Differential, Automated 02/05/2023 [place], [place] [address]25 [phone] [facility] Neutrophil % - Auto 62.5 % 37.0-63.0 [facility] Lymphocyte % - Auto 20.1 % Low 33.0-37. 0 [facility] Monocyte % - Auto 10.3 % High 0.0-9.0 [facility] Eosinophil % - Auto 5.9 % 0.0-7.0 [facility] Basophils % - Auto 1.2 % High 0.0-1.0 [facility] Neutrophil # - Auto 3.0 K/uL 1.5-6.6 [facility] Lymphocyte # - Auto 1.0 K/uL Low 1.5-3.5 [facility] Monocyte # - Auto 0.5 K/uL 0.0-1.0 [facility] Eosinophil # - Auto 0.3 K/uL 0.0-0.7 [facility] Basophils # - Auto 0.1 K/uL 0.0-0.1 [facility] NRBC% Automated Differential 0.1 % High <0.01 CBC 02/05/2023 [place] [address] [phone] [facility] White Blood Cell Count 4.8 K/uL 4.0-10.5 [facility] Red Blood Cell Count 3.98 Low 4.20-5. 40 Hemoglobin 12.7 g/dL 12.5-16 HCT 37.3 % 37-47 [facility] Mean Corpuscular Volume 93.7 fl 78.0 -100.0 [facility] MCH 31.8 pg High 27.0-31.0 [facility] MCHC 33.9 g/dL 32.5-36.0 [facility] Red Cell Dist Width 12.7 % 11.5-14. 0 [facility] Platelet Count 257 K/uL 150-450 [facility] MPV 8.3 fL 6.5-9.5 Laboratory test finding 02/05/2023 [place] [address] [phone] Hepatitis C Antibody Non-Reactive Non-Reactive 6 Hepatitis B Surface Antigen Non-Reactive Non-Re active 7 Hepatitis B Surface Antibody <3.5 mlU/mL Low >=12.0 8 CK 48 U/L 26-192 9 Comprehensive Metabolic Panel 12/09/2022 [place] [address] [phone] [facility] Sodium 138 mmol/L 135-146 10 [facility] Potassium 4.7 mmol/L 3.5-5.1 [facility] Chloride 101 mmol/L 98-107 [facility] Co2 25 mmol/L 22-32 [facility] Anion Gap 17 mmol/L 10-20 [facility] BUN 24 mg/dL High 6-20 [facility] Creatinine 1.4 mg/dL High 0.5-0.9 [facility] Estimated Glomerular Filtration Rate 41 [facility] BUN/Creatinine Ratio 17.1 12.0-20 .0 [facility] Glucose 88 mg/dL 70-120 [facility] Calcium 9.0 mg/dL 8.4-10.2 [facility] Ast/Sgot 14 U/L 10-35 [facility] Alkaline Phosphatase 104 U/L 48-153 [facility] Alt/SGPT 19 U/L 10-35 [facility] Bilirubin, Total 0.40 mg/dL 0.00-1.20 [facility] Protein, Total 7.0 g/dL 6.0-8.3 [facility] Albumin 4.5 g/dL 3.8-5.0 [facility] Globulin 2.5 g/dL 1.8-3.8 [facility] Albumin/Globulin Ratio 1.8 1.0-2 .4 Laboratory test finding 12/09/2022 [facility] [place] [address] [phone] Shelly W/Reflex (Ech Only) Negative Negative 11 Double Stranded Dna (Dsdna) Antibody, Quant 7 IU/mL 0-9 12 Shelly Profile Comprehensive 12/09/2022 [facility] [place] [address] [phone] [facility] Anti-Dna DS AB 7 IU/mL 0-9 13 [facility] CLOTH COVERED HELMET PULLER Abs 0.2 AI 0.0-0.9 E[facility] Rivas Abs <0.2 AI 0.0-0.9 [facility] SCL-70 Abs <0.2 AI 0.0-0.9 [facility] Sjogrens Ssa AB <0.2 AI 0.0-0.9 [facility] Sjogrens SSB AB <0.2 AI 0.0-0.9 [facility] Antichromatin Abs <0.2 AI 0.0-0.9 [facility] Anti-Ritika-1 <0.2 AI 0.0-0.9 [facility] Centromere B Abs <0.2 AI 0.0-0.9 [facility] Shelly Note Comment 14 Routine Urinalysis 12/09/2022 [facility] [place] [address] [phone] [facility] Color, Urine Light-Yellow <See Note> 15 [facility] Clarity, Urine Clear <See Note> 16 [facility] Glucose, Urine Negative mg/dL Negative, Trace [facility] Bilirubin, Urine Negative mg/dL Negativ e [facility] Ketones, Urine Negative mg/dL Negative, Trace [facility] Specific [place], Urine 1.017 1.00 3-1.030 [facility] Blood, Urine Negative Negative [facility] PH, Urine 5.5 >4.6-<7.8 [facility] Protein, Urinalysis Negative mg/dL Nega tive [facility] Urobilinogen, Urine <2.0 mg/dL 0.2, <2. 0 [facility] Nitrite, Urine Negative Negative [facility] Esterase, Urine Trace Abnormal Negative [facility] Bacteria, Urine Few /HPF Abnormal None [facility] Epithelium, Squamous Few /HPF None, F ew [facility] Erythrocytes, Urine (Num) <1 /HPF 0- 2 [facility] Leukocytes, Urine (Num) 3 /HPF 0-5 [facility] Casts, Hyaline (Num) 1 /LPF 0-2 [facility] Mucous Trace /HPF Abnormal Absent Laboratory test finding 12/09/2022 [place] [address] [phone] Erythrocyte Sedimentation Rate (Esr) 21 mm/hr <30 17 Differential, Automated 12/09/2022 [place] [address] [phone] [facility] Neutrophil % - Auto 65.4 % High 37.0-6 3.0 [facility] Lymphocyte % - Auto 20.1 % Low 33.0-37. 0 [facility] Monocyte % - Auto 7.8 % 0.0-9.0 [facility] Eosinophil % - Auto 5.6 % 0.0-7.0 [facility] Basophils % - Auto 1.1 % High 0.0-1.0 [facility] Neutrophil # - Auto 4.1 K/uL 1.5-6.6 [facility] Lymphocyte # - Auto 1.3 K/uL Low 1.5-3.5 [facility] Monocyte # - Auto 0.5 K/uL 0.0-1.0 [facility] Eosinophil # - Auto 0.4 K/uL 0.0-0.7 [facility] Basophils # - Auto 0.1 K/uL 0.0-0.1 [facility] NRBC% Automated Differential 0.2 % High <0.01 CBC 12/09/2022 [facility] [place] [address] [phone] [facility] White Blood Cell Count 6.3 K/uL 4.0-10.5 [facility] Red Blood Cell Count 4.00 Low 4.20-5. 40 Hemoglobin 12.6 g/dL 12.5-16 HCT 37.7 % 37-47 [facility] Mean Corpuscular Volume 94.4 fl 78.0 -100.0 [facility] MCH 31.5 pg High 27.0-31.0 [facility] MCHC 33.3 g/dL 32.5-36.0 [facility] Red Cell Dist Width 13.3 % 11.5-14. 0 [facility] Platelet Count 287 K/uL 150-450 [facility] MPV 7.9 fL 6.5-9.5 Laboratory test finding 11/30/[address] [place] [address] [phone] Cortisol, Total 17.8 g /dL Normal 18 Dhea Sulfate 164 g /dL High 9-118 19 Clinical PDF Report [id number] SEE IMAGE Laboratory test finding 11/30/[address] [place] [address] [phone] Aldosterone, LC/MS/MS 3 ng/dL see note 20 Clinical PDF Report [id number] SEE IMAGE General Health Panel 10/05/2022 [facility] [address] [place], [place] [address] [phone] TSH 3.89 uIU/mL 0.50-6.00 Comp. Met 10/05/2022 [facility] [address] [place], [place] [address] [phone] Glucose 83 mg/dL 70-110 BUN 19 mg/dL [...] 44 ML/MIN/1.73SQM Low >60 CBC W/Diff 10/05/2022 [facility] [address] [place] [address] [phone] WBC 5.6 10^3/M3 3.1-9.2 RBC 3.92 10^6/M3 3.70-5.50 HGB 12.8 GR/DL 11.5-16.1 HCT 37.6 % 34.5-47.8 MCV 96.0 CUMICR High 82.6-95.8 MCH 32.7 PICOGR 27.9-32.9 MCHC 34.0 % 32.6-35.4 RDW 13.3 % 11.4-14.6 PLT 277 10^3/M3 140-350 MPV 8.1 CUMICR 7.0-10.6 %Neut 70.8 % 40.0-75.0 %Lymph 17.4 % 17.0-45.0 %[place] 6.8 % 1.0-11.0 %Eos 3.7 % 0.0-6.0 %Baso 1.3 % 0.0-2.0 #Neut 4.0 10^3/M3 1.5-8.0 #Lymph 1.0 10^3/M3 0.8-3.2 #[place] 0.4 10^3/M3 0.0-0.8 #Eos 0.2 10^3/m3 0.0-0.4 #Baso 0.1 10^3/m3 0.0-0.2 Lipid 10/05/2022 [facility] [address] [place] [address] [phone] Cholesterol 225 mg/dL High 0-200 21 Triglyceride 254 mg/dL High 0-150 22 HDLD 49 mg/dL See Comment 23 Measured LDL 143 mg/dL High 0-130 24 Calc VLDL 50.8 mg/dL See Comment 25 Chol/HDL 4.6 RATIO See Comment 26 Non-HDL 176 mg/dL See Comment 27 Laboratory test finding 10/05/2022 [facility] [address] [place] [address] [phone] Vitd-25Oh 24 ng/mL Low 30-100 1 M32.9 2 Document delivery by Lex on behalf of [facility] 3 Colorless, Straw, Ye llow, Light-Yellow, Dark-Yellow 4 Clear, Cloudy, Sligh tly Cloudy, Other 5 Reference Range Normal <0.150 ggday High 0.150 - 0.500 ggday Very High > 0.500 ggday Nephrotic >3.000 ggday 6 Document delivery by [employer] on behalf of [facility] 7 Document delivery by [employer] on behalf of [facility] 8 Interpretation of Re sults: >12.0 mIUml Consistent with immunity. <5.0 mIUml Not Immune >5.0 - <12.0 mIUml Indeterminate = Unable to determine if Hepatitis B Surface Antibody is present at levels consistent with immunity. Patient's immune status should be further assessed by considering other clinical information. Document delivery by [employer] on behalf of [facility] 9 Document delivery by [employer] on behalf of [facility] 10 R76.8 11 Performed at: [facility] [address] [id number] Supervisor [employer] Cash[employer]: Carmen Murray MD, Phone: [phone] Document delivery by [employer] on behalf of [facility] 12 Negative <5 Equivocal 5 - 9 Positive >9 13 Performed at: [facility] [address] [place] [id number] Supervisor [employer] Cashiers: Carmen Murray MD, Phone: [phone] Document delivery by [employer] on behalf of [facility] 14 Pattern Potential [employer] Homogeneous Systemic Lupus Erythematosus, Drug Induced Systemic Lupus Erythematosus, Chronic Autoimmune hepatitis, Juvenile Idiopathic Arthritis Speckled Sjogren Syndrome, Systemic Lupus Erythematosus, Subacute Cutaneous Lupus, Lupus, Congenital Heart Block, Mixed Connective Tissue Disease, Scleroderma-diffuse, Scleroderma-Autoimmune Myositis Overlap Syndrome, Systemic Lupus Qpibxmcvtfmtu-Epziodpqpje-Bqxtukimwh Myositis Overlap Syndrome, Systemic Autoimmune Rheumatic Disease, [...] tly Cloudy, Other 17 Document delivery by [employer] on behalf of [facility] 18 Reference Range: For 8 a.m.(7-9 a.m.) [...] analytical performance characteristics have been determined by [employer]. It has not been cleared or [...] Status 11/30/2022 G0008 Influenza Admin Completed 11/30/2022 59173 Venipuncture Routine Complet ed 10/19/2022 3078F PVRP [...] Booster 18 Yrs And Older Completed 10/05/2022 44863 Venipuncture Routine Complet ed 07/08/2022 [id number] Colonoscopy Completed 03/20/2022 [id number] Mammogram Completed Medical Devices Description No Information [...] MD 10/05/2022 E78.5 Hyperlipidemia, unspecified Lab - [facility] 10/05/2022 I10 Essential (primary) hypertmayo Bueno MD 10/05/2022 I10 Essential (primary) hyperten susannah [facility] 10/05/2022 N18.32 Chronic kidney disease, stag e 3b Naveed Bueno MD 10/05/2022 N18.32 Chronic kidney disease, stag e 3b [facility] 10/05/2022 E55.9 Vitamin D deficiency, unspec ified Naveed Bueno MD 10/05/2022 E55.9 Vitamin D deficiency, unspec ified [facility] Plan of Treatment Future Appointment(s):* 02/12/2023 8:30 am - Naveed Bueno MD at [facility] Functional Status Description No Information Available Mental Status Description No Information Available Referrals Description No Information Available"
--- OUTSIDE RECORDS SUMMARY | 2023-03-01 09:23 | External Medical Summary ---
Author Name Unknown Address Unknown Organization K0N:[facility], [place] [address] Laboratory Report Ordering Provider Test Date Status HOMERO OCHOA 02/05/2023 09:36:11 Final Test(s) 117867-Loig-UU-6 Ab (RDL); 146004-Gxnk-JX-85 Ab (RDL);
982441-Yews-AK Ab (RDL); 446902-Rwpm-MA Ab (RDL); 902449-
Anti-SRP Ab (RDL); 410492-Dybl-Hy-3 Ab (RDL); 250839-
Eusd-ISO-7azexm Ab (RDL); 954615-Twib-JHL-4 Ab (CADM-140)(RDL);
119922-Nuyb-UED-1 (P140) Ab (RDL); 161977-Bmyg-SFG0 Ab, IgG (RDL);
106122-Wtxr-ZZOgx-380 Ab (RDL); 191758-Iiqi-Ub Ab (RDL); 773924-
Anti-SS-A 52kD Ab, IgG (RDL); 831235-Apgo-D9 FINANCIAL WRITER Ab (RDL); 536978-
Anti-U3 FINANCIAL WRITER (Fibrillarin)(RDL)
was developed and its performance characteristics determined
by [facility]. It has not been cleared or approved by the Food
and Drug Administration.
Performed at: 01 - [facility]
[address] [place] [id number]
Eyeglass Assembler: Tomer Benítez MD, Phone: [phone] Observation Date Value Abnormality Reference (Units ) Status E[facility] ANTI-CHARANJIT-1 AB (RDL) 02/05/2023 09:36:11 <20 <20 (Units) Final ECH ANTI-PL-7 AB (RDL) 02/05/2023 09:36:11 Negative Negative Final ECH ANTI-PL-12 AB (RDL) 02/05/2023 09:36:11 Negative Negative Final ECH ANTI-EJ AB (RDL) 02/05/2023 09:36:11 Negative Negative Final ECH ANTI-OJ AB (RDL) 02/05/2023 09:36:11 Negative Negative Final ECH ANTI-SRP AB (RDL) 02/05/2023 09:36:11 Negative Negative Final ECH ANTI-NC-2 AB (RDL) 02/05/2023 09:36:11 Negative Negative Final ECH BZQI-TTE-2YLHSG AB (RDL) 02/05/2023 09:36:11 <20 <20 (Units) Final ECH ANTI-MDA-5 AB (CADM-140)(RDL) 02/05/2023 09:36:11 <20 <20 (Units) Final ECH ANTI-NXP-2 (P140) AB (RDL) 02/05/2023 09:36:11 <20 <20 (Units) Final ECH ANTI-SAE1 AB, IGG (RDL) 02/05/2023 09:36:11 <20 <20 (Units) Final ECH ANTI-PM/SCL-100 AB (RDL) 02/05/2023 09:36:11 <20 <20 (Units) Final ECH ANTI-KU AB (RDL) 02/05/2023 09:36:11 Negative Negative Final ECH ANTI-SS-A 52KD AB, IGG (RDL) 02/05/2023 09:36:11 <20 <20 (Units) Final ECH ANTI-U1 FINANCIAL WRITER AB (RDL) 02/05/2023 09:36:11 <20 <20 (Units) Final ECH ANTI-U2 FINANCIAL WRITER AB (RDL) 02/05/2023 09:36:11 Negative Negative Final ECH ANTI-U3 FINANCIAL WRITER (FIBRILLARIN)(RDL) 02/05/2023 09:36:11 Negative Negative Final Interpretation for Anti-Charanjit-1 , Nmle-MEV-2svczs,
Anti-MDA-5, Anti-NXP-2, Anti-SAE1, Zqwh-HRQgo-261,
Anti-SS-A 52 kD, Anti-U1 FINANCIAL WRITER:
Negative: <20
Weak Positive: 20 - 39
Moderate Positive: 40 - 80
Strong Positive: >80 [place] [address]
--- OUTSIDE RECORDS SUMMARY | 2023-03-01 09:23 | External Medical Summary ---
Author Name Unknown Address Unknown Organization [place] [address] Laboratory Report Ordering Provider Test Date Status HOMERO OCHOA 02/05/2023 09:36:11 Final Observation Date Value Abnormality Reference (Units ) Status E[facility] LAB ERYTHROCYTE SEDIMENTATION RATE 02/05/2023 09:36:11 18 <30 (mm/hr) [place] [address]
--- OUTSIDE RECORDS SUMMARY | 2023-03-01 09:23 | External Medical Summary ---
Author Name Unknown Address Unknown Organization [place] [address] Laboratory Report Ordering Provider Test Date Status HOMERO OCHOA 02/05/2023 09:36:11 Final Performed at: - [facility]
[address] [place] [phone]
Consulting Practice Manager: Carmen Murray MD, Phone: [phone] Observation Date Value Abnormality Reference (Units ) Status ECH JACQUELIN DIRECT 02/05/2023 09:36:11 Negative Negat gomez Final Performing Location [facility], [place] [address]
--- OUTSIDE RECORDS SUMMARY | 2023-03-01 09:23 | External Medical Summary ---
Author Name Unknown Address Unknown Organization K0[place] [address] Laboratory Report Ordering Provider Test Date Status HOMERO OCHOA 02/05/2023 09:36:11 Final Observation Date Value Abnormality Reference (Units ) Status [facility] LAB HEPATITIS B SURFACE AG, 02/05/2023 09:36:11 Non-Reactive Non-Reactive [place] [address]
--- OUTSIDE RECORDS SUMMARY | 2023-03-01 09:23 | External Medical Summary ---
Author Name Unknown Address Unknown Organization K0N:[place] [address] Laboratory Report Ordering Provider Test Date Status HOMERO OCHOA 02/05/2023 09:36:11 Final Performed at: [facility]
[address] [place] [phone]
Hunter Guide: Carmen Murray MD, Phone: [phone] Observation Date Value Abnormality Reference (Units ) Status ECH C3 COMPLEMENT 02/05/2023 09:36:11 176 Above high normal 82-167 (mg/dL) Final Performing Location [facility], [place] [address]
--- OUTSIDE RECORDS SUMMARY | 2023-03-01 09:23 | External Medical Summary ---
Author Name Unknown Address Unknown Organization K0N:[facility] [address], [place], [place] [address] Laboratory Report Ordering Provider Test Date Status RAY OCHOAADELINE 02/05/2023 09:36:11 Final Observation Date Value Abnormality Reference (Units ) Status E[facility] LAB COLOR, URINE 02/05/2023 09:36:11 Colorless Colorless, Straw, Yellow, Light-Yellow, Dark-Yellow Final [facility] LAB CLARITY, URINE 02/05/2023 09:36:11 Clear Clear, Cloudy, Slightly Cloudy, Other Final [facility] GLUCOSE, URINE 02/05/2023 09:36:11 Negative Negative, Trace (mg/dL) Final [facility] BILIRUBIN, URINE 02/05/2023 09:36:11 Negative Negative (mg/dL) Final [facility] KETONES, URINE 02/05/2023 09:36:11 Negative Negative, Trace (mg/dL) Final [facility] SPECIFIC GRAVITY, URINE 02/05/2023 09:36:11 1.007 1.003-1.030 Final [facility] BLOOD, URINE 02/05/2023 09:36:11 Negative Negative Final [facility] PH, URINE 02/05/2023 09:36:11 5.5 >4.6-<7.8 Final [facility] PROTEIN, URINALYSIS 02/05/2023 09:36:11 Negative Negative (mg/dL) Final [facility] UROBILINOGEN, URINE 02/05/2023 09:36:11 <2.0 0.2, <2.0 (mg/dL) Final [facility] LAB NITRITE, URINE 02/05/2023 09:36:11 Negative Negative Final [facility] LAB ESTERASE, URINE 02/05/2023 09:36:11 Small Abnormal Negative Final [facility] BACTERIA, URINE 02/05/2023 09:36:11 None None (/HPF) Final [facility] LAB EPITHELIUM, SQUAMOUS 02/05/2023 09:36:11 Few None, Few (/HPF) Final [facility] LAB ERYTHROCYTES, URINE (NUM) 02/05/2023 09:36:11 0 0-2 (/HPF) Final [facility] LAB LEUKOCYTES, URINE (NUM) 02/05/2023 09:36:11 6 Above high normal 0-5 (/HPF) Final [facility] LAB EPITHELIUM, TRANSITIONAL 02/05/2023 09:36:11 Few Abnormal None (/HPF) Final Performing Location [facility], [place] [address]
--- OUTSIDE RECORDS SUMMARY | 2023-03-01 09:23 | External Medical Summary ---
Author Name Unknown Address Unknown Organization K0N:[place] [address] Laboratory Report Ordering Provider Test Date Status HOMERO OCHOA 02/05/2023 09:36:11 Final Observation Date Value Abnormality Reference (Units ) Status [facility] LAB HEPATITIS C AB, IGG 02/05/2023 09:36:11 Non-Reactive Non-Reactive [place] [address]
--- OUTSIDE RECORDS SUMMARY | 2023-03-01 09:23 | External Medical Summary ---
Author Name Unknown Address Unknown Organization [place] [address] Laboratory Report Ordering Provider Test Date Status HOMERO OCHOA 02/05/2023 09:36:11 Final Interpretation of Results:<b r/>
>12.0 mIUml Consistent with immunity.
<5.0 mIUml Not Immune
>5.0 - <12.0 mIUml Indeterminate = Unable to determine if
Hepatitis B Surface Antibody is present
at levels consistent with immunity.
Patient's immune status should be further
assessed by considering other clinical
information. Observation Date Value Abnormality Reference (Units ) Status [facility] LAB HEPATITIS B SURFACE AB 02/05/2023 09:36:11 <^3.5 Below low normal >=12.0 (mlU/mL) [place] [address]
--- OUTSIDE RECORDS SUMMARY | 2023-03-01 09:23 | External Medical Summary ---
Author Name Unknown Address Unknown Organization [place] [address] Laboratory Report Ordering Provider Test Date Status HOMERO OCHOA 02/05/2023 09:36:11 Final Observation Date Value Abnormality Reference (Units ) Status E[facility] LAB CPK 02/05/2023 09:36:11 48 26-192 ( U/L) [place] [address]
[2023-03-01] MEDS ORDERED: MIDAZOLAM HCL 1 MG/ML 2ML VIAL ONE (09:34)
[2023-03-01] MEDS ORDERED: ePHEDrine sulfate 50 MG/ML AMP IV PRN (10:08)
[2023-03-01] MEDS ORDERED: ONDANSETRON INJ 2 MG/ML 2 ML VIAL IV PRN ×2 (10:08→12:47)
[2023-03-01] MEDS ORDERED: ATROPINE SULFATE 0.1 MG/ML 10ML SYR IV PRN (10:08)
[2023-03-01] MEDS ORDERED: PROMETHAZINE HCL 6.25 MG in SODIUM CHLORIDE 0.9% 50 ML IV PRN (10:08)
[2023-03-01] MEDS ORDERED: fentaNYL citrate PF 100 MCG/2 ML VIAL IV PRN (10:08)
--- NOTE | 2023-03-01 10:31 | History & Physical Bridge Note ---
Date of Service March 01, 2023 History & Physical Bridge Note I have examined the patient, reviewed the History & Physical and in the interval since the performance of the History & Physical I have noted the following changes of clinical significance: no changes noted
[2023-03-01] MEDS ORDERED: ORTHO JOINT ANESTHETIC ONE (11:12)
[2023-03-01] MEDS ORDERED: ONDANSETRON INJ 2 MG/ML 2 ML VIAL ONE (12:04)
[2023-03-01] MEDS ORDERED: LIDOCAINE 2% 2 ML VIAL/AMP(20MG/ML) INFIL ONE (12:04)
[2023-03-01] MEDS ORDERED: PROPOFOL IV EMULSION 10 MG/ML 20 ML VIAL IV ONE (12:04)
[2023-03-01] MEDS ORDERED: KETOROLAC 30 MG/ML VIAL ONE (12:09)
--- NOTE | 2023-03-01 12:44 | Post Operative Brief Note ---
Immediate Post Op Note v1 Date of Surgery March 01, 2023 Pre & Post Diagnosis Operation Date: 03/01/23 10:50 Pre-Op Diagnosis: Osteoarthritis Left Hip Post-Op Diagnosis: Osteoarthritis Left Hip I identified the patient and participated in the time-out.: Yes Procedure Operation Date: 03/01/23 10:50 Actual Procedures p Left Total Hip Arthroplasty - Anterior Approach(Left) - Vinicio Teixeira MD Surgeon Vinicio Teixeira MD Parenting Skills Instructor Heath Urrutia PAPietroC Estimated Blood Loss 150 Findings Consistent with Post-Op Diagnosis
[2023-03-01] MEDS ORDERED: METOCLOPRAMIDE HCL INJ 5 MG/ML 2 ML VIAL IV PRN (12:47)
[2023-03-01] MEDS ORDERED: MAGNESIUM HYDROXIDE SUSP 30 ML UDC PO PRN (12:47)
[2023-03-01] MEDS ORDERED: bisacodyL 10 MG SUPP PR PRN (12:47)
[2023-03-01] MEDS ORDERED: NALOXONE HCL 0.4 MG/1 ML VIAL/CARP IV PRN (12:47)
--- NOTE | 2023-03-01 12:59 | Operative Report ---
Post Operative Report Pre & Post Diagnosis Operation Date: 03/01/23 10:50 Pre-Op Diagnosis: Osteoarthritis Left Hip Post-Op Diagnosis: Osteoarthritis Left Hip I identified the patient and participated in the time-out.: Yes Procedure Operation Date: 03/01/23 10:50 Actual Procedures p Left Total Hip Arthroplasty - Anterior Approach(Left) - Vinicio eTixeira MD Surgeon Vinicio Teixeira MD Sealer Operator Heath DECKER-C Estimated Blood Loss 150 Findings Consistent with Post-Op Diagnosis Patient had a morbidly obese body habitus which made the approach difficult. The hip does did show significant and severe degenerative changes with chronically inflamed synovium Specimens femoral head and bone and cartilage fragments Indications patient is an obese 67-year-old female with multiple medical problems who has severe arthritis of both hips with large cystic lesions and advanced degenerative changes. Components used: [employer] anthology hip system: Acetabulum size 50 with 25 mm dome screw and 32 mm highly cross-linked polyethylene liner. Femur size 3 standard offset with +432 mm Oxinium head. Note: Heath DECKER was present and assisted throughout due to the complicated nature of this case. He help with preparation and set up, he visitor service assistant throughout. He assisted with hemostasis and exposure throughout the procedure. He also closed the fascial subcutaneous and skin layers and applied the postop dressing. Description of Procedure Following satisfactory spinal anesthesia the patient was supine on the operating room table. The left leg was placed in the traction device in the right leg in the well-leg rosales. Positioning was confirmed with fluoroscopy. The leg was then prepared with ChloraPrep and draped sterilely. A surgical timeout was performed. An anterior approach was performed between the sartorius and tensor muscles. The circumflex femoral vessels were identified and coagulated. An anterior capsulotomy was performed exposing the arthritic femoral neck and head. Fluoroscopy was used to confirm femoral neck resection level which was completed and the arthritic femoral head was removed. The acetabular self-retaining retractor was placed. Acetabular preparation was completed with excision of labral tissue and a few small osteophytes. Acetabular reaming was then completed under direct vision and a 50 shell was impacted into a healthy bed into a position of 35 to 40 degrees of abduction and 25 degrees of anteversion confirmed with fluoroscopy. A dome screw was placed followed by the polyethylene liner and local anesthetic and the wound was irrigated. The femur was placed into a position of external rotation extension and adduction. The femoral canal was identified and was prepared up to a size 3. A trial reduction with a standard offset neck and a +4 head showed good fit and fill on fluoroscopy with very good orientation of the components and leg length and offset appear to be restored at the level of the lesser trochanter. The hip was dislocated. The trial component removed. Local anesthetic was placed and after irrigation the stem head complex of the same size was placed and the hip was reduced. Fluoroscopy showed similar findings. The wound was irrigated with 500 cc of experience irrigation. A Hemovac drain was placed. The tensor fascia was closed with a running suture of 0 V-Loc. The subcutaneous tissues were closed with running sutures of 0 strata fix in multip le layers. The most superficial layer with 3 oh strata fix. Dermabond Steri- Strips and a negative pressure dressing were applied. The patient was returned to her bed in stable condition. I attest to the content of the Intraoperative Record and any orders documented therein. Any exceptions are noted below.
--- NOTE | 2023-03-01 13:00 | Operative Report ---
Post Operative Report Pre & Post Diagnosis Operation Date: 03/01/23 10:50 Pre-Op Diagnosis: Osteoarthritis Left Hip Post-Op Diagnosis: Osteoarthritis Left Hip I identified the patient and participated in the time-out.: Yes Procedure Operation Date: 03/01/23 10:50 Actual Procedures p Left Total Hip Arthroplasty - Anterior Approach(Left) - Vinicio Teixeira MD Surgeon Vinicio Teixeira MD Video Game Engineer Heath Urrutia PAPietroC Estimated Blood Loss 150 Findings Consistent with Post-Op Diagnosis Specimens Femoral head and bone and cartilage fragments Description of Procedure see op note done earlier today I attest to the content of the Intraoperative Record and any orders documented therein. Any exceptions are noted below.
--- NOTE | 2023-03-01 13:17 | Fluoroscopy Report ---
FL hip LT 1V CLINICAL HISTORY: LEFT ANTERIOR HIP TECHNIQUE: 2 views were obtained with the C-arm in the OR with the above procedure. Total fluoroscopy time was 9.8 seconds. Radiation dose was 1.51 mGy. Comparison: None available at the time of this dictation. FINDINGS/IMPRESSION: Intraoperative images were obtained of left hip total arthroplasty. Please correlate with intraoperative fluoroscopy and operative report. ACT 112: Negative or not required by law. Electronically signed by: Chad Martini M.D. 03/01/2023 1:16 PM
--- NOTE | 2023-03-01 13:44 | Anesthesiology Progress Note ---
Date of Service March 01, 2023 Anesthesia Post Procedure Vital Signs Vital Signs: Temp Pulse Pulse Resp BP Pulse Ox O2 Del Method 03/01/23 13:35 97.3 F L 65 13 132/71 97 Room Air 03/01/23 13:25 62 18 137/76 97 Room Air 03/01/23 13:15 66 16 146/62 H 100 Oxymask 03/01/23 13:05 97.3 F L 97 H 16 137/76 99 Oxymask 03/01/23 08:54 98.4 F 69 20 123/101 H 98 Room Air O2 Flow Rate 03/01/23 13:35 03/01/23 13:25 03/01/23 13:15 4 03/01/23 13:05 6 03/01/23 08:54 Pain Intensity Left Hip: Pain Intensity: 8 Transfer of Care Handoff Completed per policy Notes Mental Status: alert / awake / arousable and participated in evaluation Patient Amnestic to Procedure: Yes Nausea / Vomiting: adequately controlled Pain: adequately controlled Airway Patency, RR, SpO2: stable & adequate BP & HR: stable & adequate Hydration State: stable & adequate Neuraxial Anesthesia: was administered and sensory block is resolving Anesthetic Complications: no major complications apparent and Pt Satisfied with anesthetic care
[2023-03-01] MEDS ORDERED: ALBUTEROL HFA 8 GM INHALER INH PRN (14:59)
[2023-03-01] MEDS ORDERED: oxyCODONE HCL IR 5 MG TAB (IMMEDIATE RELEASE) PO PRN (15:02)
[2023-03-01] MEDS ORDERED: FLUTICASONE/VILANTEROL 100/25MCG 14 PUFFS/INHALER INH PRN (15:36)
[2023-03-01] MEDS: SODIUM CHLORIDE 0.9% 1,000 ML IV SCH (16:27)
[2023-03-01] MEDS: ceFAZolin 2000MG 2,000 MG/15 ML SYR IV SCH (19:01)
[2023-03-01] MEDS: ACETAMINOPHEN 500 MG TAB PO SCH (19:54)
[2023-03-01] MEDS ORDERED: SENNA 8.6 MG TAB PO SCH (21:00)
[2023-03-01] MEDS: CeleBREX 200 MG CAP PO SCH (21:34)
[2023-03-01] MEDS: DOCUSATE SODIUM 100 MG CAP PO SCH (21:35)
[2023-03-01] MEDS: LOSARTAN POTASSIUM 50 MG TAB PO SCH (21:36)
[2023-03-01] MEDS: ASPIRIN 81 MG ECTAB PO SCH (21:39)
[2023-03-02] MEDS: SODIUM CHLORIDE 0.9% 1,000 ML IV SCH
[2023-03-02] MEDS: ACETAMINOPHEN 500 MG TAB PO SCH ×3 (00:05→13:37)
[2023-03-02] MEDS: ceFAZolin 2000MG 2,000 MG/15 ML SYR IV SCH (03:11)
[2023-03-02 06:23] LABS: Basophils # (auto) 0.03 K/uL (0.00-0.20); Basophils % (auto) 0.2 %; Hematocrit (blood only) 29.1 % (37.0-47.0); Hemoglobin 9.9 g/dl (12.0-16.0); Immature Granulocytes # (auto) 0.06 K/uL (0.01-0.20); Immature Granulocytes % (auto) 0.4 %; Lymphocytes % (auto) 3.7 %; Mean Corpuscular Hemoglobin 31.3 pg (25.0-34.0); Mean Corpuscular Volume 92.1 fL (80.0-100.0); Mean Platelet Volume 10.8 fL (9.4-12.4); Monocytes # (auto) 0.93 K/uL (0.11-0.59); Monocytes % (auto) 6.8 %; Neutrophils # (auto) 12.15 K/uL (1.40-6.50); Neutrophils % (auto) 88.9 %; Platelet Count 219 K/uL (130-400); RDW Coefficient of Variation 11.9 % (11.5-14.5); RDW Standard Deviation 40.4 fL (36.4-46.3); Red Blood Count 3.16 M/uL (4.20-5.40); White Blood Count 13.67 K/ul (4.8-10.8)
[2023-03-02 06:46] LABS: BUN Creatinine Ratio 17.4 (10-20); Calcium 8.2 mg/dl (8.6-10.3); Creatinine Clr Calc Pharmacy 57.9 ml/min; Est GFR (Non-African American) 46.6 ml/min; Potassium 4.5 mmol/L (3.5-5.1)
--- NOTE | 2023-03-02 07:34 | Orthopedic Progress Note ---
Date of Service March 02, 2023 Assessment & Plan (1) Degenerative joint disease of left hip: Plan: Postop day 1 status post left total hip replacement direct anterior approach PT/OT protocols. Weightbearing as tolerated. DVT prophylaxis-aspirin p.o. twice daily, SCDs. Pain management as written. DC planning-patient is planning for home health services upon discharge. Plan for discharge to home today after PT (2) BMI 38.0-38.9,adult: Admission and Anticipated Discharge Date Admission Date: March 01, 2023 Subjective Postop day 1 patient sleeping upon entering room but easily awoken. Patient states she feels well. Pain is controlled. No complaints this morning. She states that she has been up to the bathroom several times with the help of nursing and she did well with her ambulation. Physical Exam Physical Exam: Bradley dressing is clean, dry, and intact. Thigh has some swelling consistent with surgery. Calves are soft nontender. Neurovascular intact. Toes are mobile. Leg lengths appear equal. Results & Data Vital Signs (Past 12 Hours) Vital Signs Temp Pulse Resp BP Pulse Ox O2 Del Method 03/02/23 03:50 36.5 C 76 16 116/67 96 Room Air 03/01/23 23:40 36.5 C 73 16 122/67 95 Room Air 03/01/23 20:28 36.3 C L 83 16 115/76 96 Room Air Laboratory Results Laboratory Results WBC 13.67 K/ul (4.8-10.8) H 03/02/23 05:34 RBC 3.16 M/uL (4.20-5.40) L 03/02/23 05:34 Hgb 9.9 g/dl (12.0-16.0) L 03/02/23 05:34 Hct 29.1 % (37.0-47.0) L 03/02/23 05:34 MCV 92.1 fL (80.0-100.0) 03/02/23 05:34 MCH 31.3 pg (25.0-34.0) 03/02/23 05:34 MCHC 34.0 g/dL (32.0-36.0) 03/02/23 05:34 RDW Std Deviation 40.4 fL (36.4-46.3) 03/02/23 05:34 RDW Coeff of Cooper 11.9 % (11.5-14.5) 03/02/23 05:34 Plt Count 219 K/uL (130-400) 03/02/23 05:34 MPV 10.8 fL (9.4-12.4) 03/02/23 05:34 Immature Gran % (Auto) 0.4 % 03/02/23 05:34 Neut % (Auto) 88.9 % 03/02/23 05:34 Lymph % (Auto) 3.7 % 03/02/23 05:34 [place] % (Auto) 6.8 % 03/02/23 05:34 Eos % (Auto) 0.0 % 03/02/23 05:34 Baso % (Auto) 0.2 % 03/02/23 05:34 Neut # (Auto) 12.15 K/uL (1.40-6.50) H 03/02/23 05:34 Lymph # (Auto) 0.50 K/uL (1.20-3.40) L 03/02/23 05:34 [place] # (Auto) 0.93 K/uL (0.11-0.59) H 03/02/23 05:34 Eos # (Auto) 0.00 K/uL (0.00-0.50) 03/02/23 05:34 Baso # (Auto) 0.03 K/uL (0.00-0.20) 03/02/23 05:34 Immature Gran # (Auto) 0.06 K/uL (0.01-0.20) 03/02/23 05:34 Sodium 135 mmol/L (136-145) L 03/02/23 05:34 Potassium 4.5 mmol/L (3.5-5.1) 03/02/23 05:34 Chloride 105 mmol/L (98-107) 03/02/23 05:34 Carbon Dioxide 22 mmol/L (21-32) 03/02/23 05:34 Anion Gap 8 (3-11) 03/02/23 05:34 BUN 21 mg/dl (6-23) 03/02/23 05:34 Creatinine 1.21 mg/dl (0.6-1.2) H 03/02/23 05:34 Est Cr Clr Drug Dosing 57.9 ml/min 03/02/23 05:34 Est GFR ( Amer) 54.0 ml/min 03/02/23 05:34 Est GFR (Non-Af Amer) 46.6 ml/min 03/02/23 05:34 BUN/Creatinine Ratio 17.4 (10-20) 03/02/23 05:34 Glucose 110 mg/dl (70-99(Fasting)) H 03/02/23 05:34 POC Glucose 170 mg/dl (70-99) H 03/01/23 17:37 Calcium 8.2 mg/dl (8.6-10.3) L 03/02/23 05:34 Blood Type O Positive 03/01/23 08:46 Antibody Screen NEGATIVE 03/01/23 08:46 Impressions Hip X-Ray 03/01/23 07:30 FL hip LT 1V CLINICAL HISTORY: LEFT ANTERIOR HIP TECHNIQUE: 2 views were obtained with the C-arm in the OR with the above procedure. Total fluoroscopy time was 9.8 seconds. Radiation dose was 1.51 mGy. Comparison: None available at the time of this dictation. FINDINGS/IMPRESSION: Intraoperative images were obtained of left hip total arthroplasty. Please correlate with intraoperative fluoroscopy and operative report. ACT 112: Negative or not required by law. Electronically signed by: Chad Martini M.D. 03/01/2023 1:16 PM
[2023-03-02] MEDS ORDERED: ATENOLOL 50 MG TABLET PO SCH (09:00)
[2023-03-02] MEDS ORDERED: buPROPion XL 150 MG TABCR PO SCH (09:00)
[2023-03-02] MEDS ORDERED: MULTIVITAMIN TAB PO SCH (09:00)
[2023-03-02] MEDS ORDERED: LEFLUNOMIDE 10 MG TAB PO SCH (09:00)
[2023-03-02] MEDS: ASPIRIN 81 MG ECTAB PO SCH ×2 (09:28→09:37)
[2023-03-02] MEDS: CeleBREX 200 MG CAP PO SCH (09:28)
[2023-03-02] MEDS: LOSARTAN POTASSIUM 50 MG TAB PO SCH (09:28)
[2023-03-02] MEDS: DOCUSATE SODIUM 100 MG CAP PO SCH (09:28)
--- NOTE | 2023-03-09 07:24 | Discharge Summary ---
Date of Service March 09, 2023 Admission HPI Per Admitting Provider Patient is an obese 67-year-old female with greater than 2-year history of left hip and groin pain. The pain is associated with decreased range of motion weakness and get giving away. She cannot tie her shoe and sock. She requires a cane for all ambulatory activity. She has failed intra-articular injections as well as gel patches both topical NSAID and lidocaine. She has radiographic evidence of advanced arthritis of the hip and is admitted for elective hip replacement. Admission Exam Per Admitting Provider Physical Exam: Weight 109 kg BMI 39 General obese female who appears older than her stated age. HEENT NCAT EOMI PERRLA Neck: Negative bruits Heart: Regular rate and rhythm grade 1/6 soft systolic ejection murmur. Lungs: Breath sounds clear and equal in all velásquez Abdomen: Obese soft nontender bowel sounds are positive Extremities: Left hip is 4 mm shorter than the right. Passive range of motion is 5 to 90 degrees flexion -10 degrees internal rotation all which reproduces groin pain. Neurological and vascular: Intact Principal Diagnosis Left Hip Djd Discharge Data Allergies Allergy/AdvReac Type Severity Reaction Status Date / Time codeine AdvReac Unknown NAUSEA AND Verified 03/01/23 08:47 VOMITING metformin AdvReac Unknown "BURNING Verified 03/01/23 08:47 IN MY ESOPHAGUS" propoxyphene AdvReac Unknown NAUSEA AND Verified 03/01/23 08:47 VOMITING Sulfa (Sulfonamide AdvReac Unknown NAUSEA AND Verified 03/01/23 08:47 Antibiotics) VOMITING hydromorphone [From Dilaudid] AdvReac Vomiting Verified 03/01/23 08:47 tramadol AdvReac Nausea Verified 03/01/23 08:48 Procedures Performed Operation Date: 03/01/23 10:50 Actual Procedures p Left Total Hip Arthroplasty - Anterior Approach(Left) - Vinicio Teixeira MD Ordered Studies 03/01/23 07:30 FL hip LT 1V Routine Hospital Course (1) Degenerative joint disease of left hip: Patient: ALEXIS PATRICK Admit Date: 03/01/23 MR#: [id number] Att Phy: Vinicio Teixeira MD Acct ID: [id number] Maggi Phy: KARRI CAT Date: 1955 Fam Phy: Age: 67 Location: [facility] Sex: F Room/Bed: [id number] cc: ~ *NOTICE TO RECEIVING [employer]/AGENCY This information is strictly Confidential and protected under [place] law. [place] law prohibits you from making any further disclosure of this information unless further disclosure is expressly permitted by the written consent of the person to whom it pertains or is authorized by law. A general authorization for the release of medical or other information is not sufficient for this purpose. Hospital accepts no responsibility if the information is made available to any other person, INCLUDING THE PATIENT. Date of Service March 02, 2023 Assessment & Plan (1) Degenerative joint disease of left hip: Plan: Postop day 1 status post left total hip replacement direct anterior approach PT/OT protocols. Weightbearing as tolerated. DVT prophylaxis-aspirin p.o. twice daily, SCDs. Pain management as written. DC planning-patient is planning for home health services upon discharge. Plan for discharge to home today after PT (2) BMI 38.0-38.9,adult: Admission and Anticipated Discharge Date Admission Date: March 01, 2023 Subjective Postop day 1 patient sleeping upon entering room but easily awoken. Patient states she feels well. Pain is controlled. No complaints this morning. She states that she has been up to the bathroom several times with the help of nursing and she did well with her ambulation. Physical Exam Physical Exam: Loraine dressing is clean, dry, and intact. Thigh has some swelling consistent with surgery. Calves are soft nontender. Neurovascular intact. Toes are mobile. Leg lengths appear equal. Results & Data Vital Signs (Past 12 Hours) Vital Signs Temp Pulse Resp BP Pulse Ox O2 Del Method 03/02/23 03:50 36.5 C 76 16 116/67 96 Room Air 03/01/23 23:40 36.5 C 73 16 122/67 95 Room Air 03/01/23 20:28 36.3 C L 83 16 115/76 96 Room Air Laboratory Results Laboratory Results WBC 13.67 K/ul (4.8-10.8) H 03/02/23 05:34 RBC 3.16 M/uL (4.20-5.40) L 03/02/23 05:34 Hgb 9.9 g/dl (12.0-16.0) L 03/02/23 05:34 Hct 29.1 % (37.0-47.0) L 03/02/23 05:34 MCV 92.1 fL (80.0-100.0) 03/02/23 05:34 MCH 31.3 pg (25.0-34.0) 03/02/23 05:34 MCHC 34.0 g/dL (32.0-36.0) 03/02/23 05:34 RDW Std Deviation 40.4 fL (36.4-46.3) 03/02/23 05:34 RDW Coeff of Cooper 11.9 % (11.5-14.5) 03/02/23 05:34 Plt Count 219 K/uL (130-400) 03/02/23 05:34 MPV 10.8 fL (9.4-12.4) 03/02/23 05:34 Immature Gran % (Auto) 0.4 % 03/02/23 05:34 Neut % (Auto) 88.9 % 03/02/23 05:34 Lymph % (Auto) 3.7 % 03/02/23 05:34 [place] % (Auto) 6.8 % 03/02/23 05:34 Eos % (Auto) 0.0 % 03/02/23 05:34 Baso % (Auto) 0.2 % 03/02/23 05:34 Neut # (Auto) 12.15 K/uL (1.40-6.50) H 03/02/23 05:34 Lymph # (Auto) 0.50 K/uL (1.20-3.40) L 03/02/23 05:34 [place] # (Auto) 0.93 K/uL (0.11-0.59) H 03/02/23 05:34 Eos # (Auto) 0.00 K/uL (0.00-0.50) 03/02/23 05:34 Baso # (Auto) 0.03 K/uL (0.00-0.20) 03/02/23 05:34 Immature Gran # (Auto) 0.06 K/uL (0.01-0.20) 03/02/23 05:34 Sodium 135 mmol/L (136-145) L 03/02/23 05:34 Potassium 4.5 mmol/L (3.5-5.1) 03/02/23 05:34 Chloride 105 mmol/L (98-107) 03/02/23 05:34 Carbon Dioxide 22 mmol/L (21-32) 03/02/23 05:34 Anion Gap 8 (3-11) 03/02/23 05:34 BUN 21 mg/dl (6-23) 03/02/23 05:34 Creatinine 1.21 mg/dl (0.6-1.2) H 03/02/23 05:34 Est Cr Clr Drug Dosing 57.9 ml/min 03/02/23 05:34 Est GFR ( Amer) 54.0 ml/min 03/02/23 05:34 Est GFR (Non-Af Amer) 46.6 ml/min 03/02/23 05:34 BUN/Creatinine Ratio 17.4 (10-20) 03/02/23 05:34 Glucose 110 mg/dl (70-99(Fasting)) H 03/02/23 05:34 POC Glucose 170 mg/dl (70-99) H 03/01/23 17:37 Calcium 8.2 mg/dl (8.6-10.3) L 03/02/23 05:34 Blood Type O Positive 03/01/23 08:46 Antibody Screen NEGATIVE 03/01/23 08:46 Impressions Hip X-Ray 03/01/23 07:30 FL hip LT 1V CLINICAL HISTORY: LEFT ANTERIOR HIP TECHNIQUE: 2 views were obtained with the C-arm in the OR with the above procedure. Total fluoroscopy time was 9.8 seconds. Radiation dose was 1.51 mGy. Comparison: None available at the time of this dictation. FINDINGS/IMPRESSION: Intraoperative images were obtained of left hip total arthroplasty. Please correlate with intraoperative fluoroscopy and operative report. ACT 112: Negative or not required by law. Electronically signed by: Chad Martini M.D. 03/01/2023 1:16 PM Signed By: <Electronically signed by Heath Urrutia PA-C> 03/02/23 0733 Created: 03/02/23728 (2) BMI 38.0-38.9,adult: Total Time Total Time Spent Total Time Spent (In Minutes): 5 Discharge Plan Discharge Items Patient Disposition: Home - Home Health Services Reason For Visit: POST SURGICAL CARE Discharge Diagnosis: Ostearthritis Left Hip Activity: Per Instructions section Weightbearing: Left weightbearing Weightbearing Comment: as tolerated with walker Non-emergency contact: Surgeon Call non-emergency contact if: you have any medication questions, your pain is not controlled, your temperature is above 101.5, your wound has increased redness and your wound has increased drainage Follow-up/Referrals: [facility] [Outside] (as per surgeon's office ) Vinicio Teixeira MD [Surgeon] - (Follow up with Dr. Teixeira or his PA in 2 weeks from the day of your surgery for your first post operative visit. ) PCP,NO [Physician] - Diet: Regular Addtl Attending Provider Instructions: DR. MALDONADO POST-OP INSTRUCTIONS FOR TOTAL HIP ARTHROPLASTY PLEASE REVIEW PRIOR TO SURGERY Day of Surgery You will be admitted and meet the nursing and anesthesia team. Dr. Teixeira will see you and sign your operative side. Anesthesia will place your spinal anesthetic in the pre-op area Your surgery will be performed and last approximately 1 2 hours. Upon waking, you will notice a dressing and ice pack on your hip. You will remain in the recovery room for 1 2 hours, then be transferred to your room in the ambulatory surgical area if you are to go home the same day as your surgery or transferred to the orthopedic floor if you will be staying overnight. Most of Dr. Maldonado total hip patients go home the same day as surgery. This depends on how well you feel. Patients generally seem to feel better in their own home environment, and the risk of exposure to bad bugs is much lower. (Your post-operative medications will be sent to your pharmacy approximately 1-2 days prior to your procedure) Day 1 post-op (if you have an overnight stay in the hospital) You will have bloodwork drawn in the morning Physical therapy will evaluate you in the morning. You will start getting out of bed and ambulating with a walker. They will instruct you on hip motion exercises. Use your cold packs as instructed. This will decrease swelling and minimize pain. card services specialist will discuss your discharge plan. Discharge will generally be around 11am Day 1 post-op (all patients) You will be taking Aspirin 81mg twice for 4 weeks to decrease the risk of a blood clot. You will most likely have a drain and a LORAINE (superficial wound VAC) dressing post-operatively. This will keep your incision dry as well as aid in early healing. The batteries will wear out and the VAC will lose suction around day 6 - 7 post-op. At that time, you may turn off the device and disconnect from the dressing. You must keep the dressing on until your first post- operative visit with Dr. Teixeira. If the dressing appears to be saturated, please call our office. Day 2 14 post-op You will have a home nurse visit to assess your status and remove your drain on post-op day 2. You are permitted to shower immediately with the VAC. Do not soak the dressing let the shower flow on your opposite side, and pat dry the plastic. Once the dressing has been removed, you may shower normally with the incision exposed. Do not rub the area simply let soapy water run over the incision and lightly pat dry. Therapy will begin on post-op day 3. Your therapy prescription will be sent to your home therapy company/therapist You should continue doing your home exercises Week 2 post-op and forward You will have your first post-op appointment 2 weeks after surgery which should have been scheduled for you by our office. This appointment will be to check your incision, progression of therapy and pain control. Xrays will be taken to evaluate the prosthesis. You will continue to use a cane or a walker until you feel safe enough to stop using it. You will have a 6-week post-op appointment which should have been scheduled for you by our office. Xrays will be taken to evaluate the prosthesis. You will continue to advance range of motion. By 3 to 4 months after surgery, you should have almost full range of motion and may resume most activities. You may have some pain around the hip with certain activities this is completely normal. You will be scheduled for a 1 year post-op appointment to assess your outcome (sooner if Dr. Teixeira feels necessary). Pain: The immediate post-op period after hip replacement surgery can be painful. However, the degree and frequency of the pain is generally much less than knee replacement surgery. You should take your pain medicine as you need it, especially prior to physical therapy and bedtime. Your pain will decrease and you may transition to a milder pain medicine (with less side effects, such as Tylenol) as soon as possible. It is common to have pain at night that interferes with sleep this can last for several months. Pain medicines can cause nausea and constipation do not take more than you need. You may be prescribed one or more of the following medications: 1. Celebrex this controls inflammation and makes pain medications mor effective it will be taken once or twice a day 2. Tylenol a pain medicine that can help to decrease your pain you should take 1000mg three times a day 3. Tramadol a pain medicine that can be taken every 4-6 hours (instead of Oxycodone) as needed to control your pain 4. Oxycodone a VERY strong pain medicine that can be taken every 4-6 hours (instead of Tramadol) as needed to control your pain. This medication has the most side effects and is usually not necessary for hip replacements. 5. Aspirin 81mg blood thinning medication to help minimize the risk of development of blood clots unfortunate side effects of pain medicine include nausea and constipation if you experience these issues or have any questions about your post-op medications, call [facility] at for assistance/advice on how to manage these issues Hip replacement surgery does not require a lot of aggressive physical therapy. Learning to walk safely and obeying hip precautions are most important. While in the hospital, you will be shown a series of home exercises you should perform these exercises 3 4 times daily in addition to physical therapy. After the completion of home therapy (approx.. 2 weeks), most therapy exercises can be done on your own. You should walk several times a day. Try not to be standing for more than an hour at a time during the first 4 weeks post-op as you may experience more swelling. If you develop swelling, you need to elevate your legs/feet at or above the level of your heart. You may progress from a walker to a cane to walking independently as you feel comfortable. Unless it is an emergency, YOUR ARE NOT PERMITTED TO HAVE ANY DENTAL CLEANING/WORK UNTIL 3 MONTHS AFTER SURGERY. You will be required to take an antibiotic prior to any dental cleaning or dental work in order to prevent your joint prothesis from getting infected. This medication is a one time per visit dose to be taken one hour prior to appointment. You may call our office for this prescription or your dentist may be willing to prescribe the medication. Remember to contact [facility] at if you develop any signs of infection which include increased swelling, pain, redness, drainage from incision, warmth, fever, chills or severe pain unrelieved by pain medication. If you develop any chest pain or shortness of breath, you should proceed immediately to the nearest Emergency Room. It is normal to run a low-grade feve r after surgery. If your fever is consistent at 101.0 or higher, you will need to contact the office. Stand-Alone Forms: My [facility] Medications and DC Order Prescriptions: Continued losartan 50 mg Tablet 50 mg PO BID cetirizine [Zyrtec] 10 mg Tablet 10 mg PO QAM leflunomide 10 mg Tablet 10 mg PO QAM atenolol 50 mg Tablet 50 mg PO QAM bupropion HCl 150 mg Tablet Extended Release 24 Hr 150 mg PO QAM omeprazole 20 mg Tablet,Delayed Release (Dr/Ec) 20 mg PO QAM Advair Diskus 1 puff inhalation UD PRN (Reason: sob) albuterol sulfate 90 mcg/actuation Hfa Aerosol Inhaler 1 inh INHALATION QID PRN (Reason: sob) Held hydroxychloroquine [Plaquenil] 200 mg Tablet 200 mg PO BID Hold Instructions: Please stop this medication for 2 weeks and then resume. Discontinued Fish Oil Capsule 3,000 mg PO QAM meloxicam 15 mg Tablet 15 mg PO DAILY celecoxib [Celebrex] 50 mg Capsule 50 mg PO BID Krames/Other Patient Handouts: DVT Post Op Prevention Admission Data Admit Date/Time: 03/01/23 12:47 Attending Provider: Vinicio Teixeira Admit Provider: Vinicio Teixeira Primary Care Provider: Karri Cat Other Interventions: Discharge Summary Assessment (RN) Last Done: 03/02/23 14:45
== END 2023-03-02 14:55 | disposition home health service (06) ==
LOC: ASU 08:26 → PACUINP 08:26
DX: Z88.5 Allergy status to narcotic agent; Z88.8 Allergy status to other drugs, medicaments and biological substances; M16.12 Unilateral primary osteoarthritis, left hip; Z68.37 Body mass index [BMI] 37.0-37.9, adult; E66.9 Obesity, unspecified; Z79.899 Other long term (current) drug therapy; Z88.2 Allergy status to sulfonamides